=== PATIENT | male | born 1935 | race Caucasian/White ===

== ENCOUNTER 2016-08-22 19:47 | Inpatient (IN) | payer OTHER, MEDICARE ==
[~2016-08-22] VITALS: Ht 172.7 cm; Wt 72.6 kg
[~2016-08-22 19:47] MED LIST: ALLO100 PO; ASPI1TAB7 PO; BUME2TAB PO; CART120C2 PO; CARV12.5 PO; CENTTAB9 PO; CYAN25003 PO; FERR325T PO; FOLI1 PO; GLIP5TAB8 PO; GLUC1000 PO; HYDR-3533 PO; MAGN400 PO; PANT40IN3 PO; POLY17S PO; POTA1TAB17 PO; PRAV40 PO; SERT-132 PO; TAMS0.4C4 PO; VITA100017 PO; VITA500015 PO
[2016-08-22 20:00] VITALS: BP 100/63; PULSE 132; RESP 25; TEMP 97.5; O2SAT 100
[2016-08-22] MEDS ORDERED: SODIUM CHLORID 0.9% 500 ML INJ 500 ML IV ONE ×2 (20:30→22:00)
--- NOTE | 2016-08-22 20:34 | PD ---
HPI Chief Complaint: General Weakness Time Seen by Provider: 20:18 Travel History International Travel<30 days: No Contact w/Intl Traveler<30days: No Traveled to known affect area: No History of Present Illness HPI The patient is an 81 year old male who presents to the [facility] emergency department with a history of generalized weakness that he reports began today got worse this afternoon. He reports that his legs gave out on him. He reports that there is no focal weakness. He reports that he has had nausea and vomiting with loose stools throughout the day today. He reports that he has not been able to keep anything to eat or drink down. The patient denies having any chest pain, however he does report having some dyspnea on exertion. The patient is unsure how many times he has had vomiting today. He reports that he is had 2 or 3 loose stools that are brown in color. He denies having any blood in his stool or black or tarry stools The patient denies any recent known fevers cough, congestion, neck pain, abdominal pain, urinary symptoms, or other neurologic symptoms. [facility] Past Medical History Narrative Medical The patient's past medical history is significant for coronary artery disease, hypertension, diabetes mellitus, peripheral vascular disease, dyslipidemia, COPD , history of cerebrovascular accident. Atrial Fibrillation: Yes Cardiac Catheterization: Yes Cardiovascular Problems: Yes COPD: Yes Coronary Artery Disease: Yes Diabetes: Yes Patient Takes Glucophage: Yes Hypertension: Yes Respiratory: Yes Tetanus Vaccination: Unknown Influenza Vaccination: Yes Past Surgical History Narrative Surgical The patient's past surgical history is significant for coronary artery bypass grafting, pacemaker placement, cardiac stent placement. Cardiac Surgery: Yes (AORTIC VALVE REPLACEMENT (BOVINE TISSUE VALVE), PACEMAKER INSERTION ) Coronary Artery Bypass Graft: Yes Coronary Stent: Yes (CORDIS STENT) Genitourinary Surgery: Yes (BLOCKAGE REPAIR ) Pacemaker: Yes ([employer] 2009 ) Other Surgery: Yes Social History Alcohol Use: No Tobacco Use: No Substance Use: No Allergies-Medications (Allergen,Severity, Reaction): Coded Allergies: Heparin (Verified Allergy, Severe, 08/22/16) Reported Meds & Prescriptions Reported Meds & Active Scripts Active Active Prescriptions or Reported Medications Unobtainable Review of Systems Except as stated in HPI: all other systems reviewed are Neg General / Constitutional: No: Fever Eyes: No: Visual changes HENT: No: Headaches Cardiovascular: Positive: Dyspnea on exertion, No: Chest Pain or Discomfort Respiratory: Positive: Shortness of Breath Gastrointestinal: Positive: Nausea, Vomiting, Diarrhea, Loss of Appetite, No: Abdominal Pain Genitourinary: No: Dysuria Musculoskeletal: No: Pain Skin: No Rash Neurologic: Positive: Weakness (generalized weakness), No: Focal Abnormalities , Change in Mentation, Slurred Speech, Sensory Disturbance Psychiatric: No: Depression Endocrine: No: Polydipsia Hematologic/Lymphatic: No: Easy Bruising Physical Exam Narrative General: The patient is a well-developed well-nourished male in no acute distress. Head and Neck exam: Head is normocephalic atraumatic. Eyes: EOMI, pupils are equal round and reactive to light. Nose: Midline septum with pink mucous membranes Mouth: Dentition unremarkable. Moist mucus membranes. Posterior oropharynx is not erythematous. No tonsillar hypertrophy. Uvula midline. Airway patent. Neck: No palpable lymphadenopathy. No nuchal rigidity. No thyromegaly. Cardiovascular: Regular rate and rhythm without murmurs, gallops, or rubs. Lungs: Clear to auscultation bilaterally. No wheezes, rhonchi, or rales. Abdomen: Soft, without tenderness to palpation in all 4 quadrants of the abdomen. No guarding, rebound, or rigidity. Normal bowel sounds are audible. No tenderness on palpation of McBurney's point Extremities: No clubbing or cyanosis. The patient has trace to 1+ pitting edema bilateral lower extremities. 2+ pulses in all 4 extremities. No calf tenderness on palpation. Back: No spinous process tenderness to palpation. No costovertebral angle tenderness to palpation. Neurologic Exam: Cranial nerves 2-12 were intact on exam. Strength is 5/5 in bilateral upper extremities, 4 over 5 in bilateral lower extremities. No sensory deficits noted. Skin Exam: No rash noted. Intact skin that is warm and dry. Data Data Last Documented VS Vital Signs Date Time Temp Pulse Resp B/P Pulse Ox O2 Delivery O2 Flow Rate FiO2 08/22/16 20:50 16 100 Room Air 08/22/16 20:00 97.5 132 100/63 Orders Electrocardiogram (08/22/16 20:19) Complete Blood Count With Diff (08/22/16 20:19) Comprehensive Metabolic Panel (08/22/16 20:19) Creatine Kinase (Cpk) (08/22/16 20:19) Ckmb (Isoenzyme) Profile (08/22/16 20:19) Troponin I (08/22/16 20:19) B-Type Natriuretic Peptide (08/22/16 20:19) Prothrombin Time / Inr (Pt) (08/22/16 20:19) Act Partial Throm Time (Ptt) (08/22/16 20:19) Lipase (08/22/16 20:19) Urinalysis - C+S If Indicated (08/22/16 20:19) Magnesium (Mg) (08/22/16 20:19) Thyroid Stimulating Hormone (08/22/16 20:19) Chest, Single Ap (08/22/16 20:19) Iv Access Insert/Monitor (08/22/16 20:19) Ecg Monitoring (08/22/16 20:19) Oxygen Administration (08/22/16 20:19) Oximetry (08/22/16 20:19) Type And Screen (08/22/16 20:19) Sodium Chlorid 0.9% 500 Ml Inj (Ns 500 M (08/22/16 20:30) Urinary Catheter Insert/Apply (08/22/16 22:00) Sodium Polysty Sulfate Liq (Kayexalate L (08/22/16 22:00) Sodium Chlorid 0.9% 500 Ml Inj (Ns 500 M (08/22/16 22:00) Sodium Chlor 0.9% 1000 Ml Inj (Ns 1000 M (08/22/16 22:00) Dextrose 50% In Mann (Vial) Inj (D50w (Vi (08/22/16 22:00) Insulin Human Regular Inj (Novolin R Inj (08/22/16 22:00) Sodium Chloride 0.9% Flush (Ns Flush) (08/22/16 22:00) Albuterol Neb (Albuterol Neb) (08/22/16 22:00) Calcium Gluconate Inj (Calcium Gluconate (08/22/16 22:00) Sodium Bicarbonate 8.4% Inj (Sodium Bica (08/22/16 22:00) Admit Order (Ed Use Only) (08/22/16 22:36) Labs Laboratory Tests Test 08/22/16 20:00 White Blood Count 10.7 TH/MM3 Red Blood Count 3.48 MIL/MM3 Hemoglobin 10.2 GM/DL Hematocrit 31.7 % Mean Corpuscular Volume 91.1 FL Mean Corpuscular Hemoglobin 29.4 PG Mean Corpuscular Hemoglobin 32.3 % Concent Red Cell Distribution Width 21.2 % Platelet Count 201 TH/MM3 Mean Platelet Volume 8.8 FL Neutrophils (%) (Auto) 87.9 % Lymphocytes (%) (Auto) 8.9 % Monocytes (%) (Auto) 2.6 % Eosinophils (%) (Auto) 0.1 % Basophils (%) (Auto) 0.5 % Neutrophils # (Auto) 9.5 TH/MM3 Lymphocytes # (Auto) 1.0 TH/MM3 Monocytes # (Auto) 0.3 TH/MM3 Eosinophils # (Auto) 0.0 TH/MM3 Basophils # (Auto) 0.1 TH/MM3 CBC Comment DIFF FINAL Differential Comment Prothrombin Time 11.9 SEC Prothromb Time International 1.1 RATIO Ratio Activated Partial 27.6 SEC Thromboplast Time Sodium Level 132 MEQ/L Potassium Level 8.2 MEQ/L Chloride Level 92 MEQ/L Carbon Dioxide Level 17.0 MEQ/L Anion Gap 23 MEQ/L Blood Urea Nitrogen 67 MG/DL Creatinine 5.06 MG/DL Estimat Glomerular Filtration 11 ML/MIN Rate Random Glucose 108 MG/DL Calcium Level 9.6 MG/DL Magnesium Level 4.0 MG/DL Total Bilirubin 0.5 MG/DL Aspartate Amino Transf 16 U/L (AST/SGOT) Alanine Aminotransferase 16 U/L (ALT/SGPT) Alkaline Phosphatase 125 U/L Total Creatine Kinase 34 U/L Troponin I 0.03 NG/ML B-Type Natriuretic Peptide 678 PG/ML Total Protein 7.4 GM/DL Albumin 3.3 GM/DL Lipase 88 U/L Thyroid Stimulating Hormone 1.530 uIU/ML 3rd Gen Blood Type O POSITIVE Antibody Screen NEGATIVE Blood Bank Comment MDM Medical Decision Making Medical Screen Exam Complete: Yes Emergency Medical Condition: Yes Medical Record Reviewed: Yes Interpretation(s) Last Impressions Chest X-Ray 08/22/162018 Signed Impressions: Service Date/Time: Monday, August 22, 2016 20:31 - CONCLUSION: 1. Global cardiomegaly with probable early edematous changes with vascular indistinctness. Trace pleural fluid. Carlos A Spicer MD Differential Diagnosis Dehydration, versus electrolyte abnormality Narrative Course During the course of the patients emergency department visit, the patients history, examination, and differential diagnosis were reviewed with the patient. The patient had IV access obtained and blood work sent for analysis. The patient was placed on a residential monitor with oximetry and blood pressure monitoring. An EKG was done. The patient's EKG revealed a heart rate of 60, paced rhythm. The patient was initially provided normal saline a 500 mL bolus 1. After the patient was noted to have hyperkalemia with a potassium of 8.2, the patient was given calcium gluconate 1 g IV, albuterol nebulizer treatments 2, one amp of bicarbonate, Kayexalate 15 g by mouth. Dextrose IV, followed by regular insulin 10 units IV. The patients laboratory studies were reviewed and remarkable for a sodium of 132, potassium 8.2, chloride 92, CO2 17, anion gap 23, BUN 67, creatinine 5.06, glucose 108, magnesium 4.0, alkaline phosphatase 125, CPK 34, troponin I 0.03, BNP is 678, TSH 1.53, lipase 88. PT PTT unremarkable. Urinalysis shows 30 protein trace ketones small occult blood 5 RBCs occasional bacteria Radiology studies were reviewed and remarkable for a chest x-ray that shows a global cardiomegaly with probable early edematous changes with vascular indistinctness, trace pleural fluid. The patient had a Hutton catheter placed to gravity. The patient was placed on additional IV fluids for gentle hydration. The patient will be admitted to the hospital for continued evaluation and treatment of acute renal failure, hyperkalemia. The patients results were discussed with the patient, including the plan of care. I explained that further testing and/ or monitoring is indicated based on the patients history, examination, and/ or laboratory findings. Therefore, I recommended admission for additional evaluation. The patient expressed understanding and was agreeable with this plan. The patient was admitted to the hospital in guarded condition and [facility] Physician Communication Physician Communication The patient's case was discussed with Dr. Soares who did agree to admit the patient for further evaluation and treatment at this time. Diagnosis Primary Impression: Acute renal failure Qualified Code: N17.9 - Acute renal failure, unspecified acute renal failure type Additional Impressions: Hyperkalemia Generalized weakness Admitting Information Admitting Physician Requests: Admit Scripts Unable to Obtain Active Prescriptions or Reported Meds Jailene Posey MD Aug 22, 2016 20:34
[2016-08-22 20:50] VITALS: RESP 16; O2SAT 100
[2016-08-22 21:02] LABS: AUTOMATED NEUTROPHIL # 9.5 TH/MM3 (1.8-7.7); BASOPHIL # 0.1 TH/MM3 (0-0.2); BASOPHIL % 0.5 % (0.0-2.0); EOSINOPHIL % 0.1 % (0.0-4.0); HEMATOCRIT 31.7 % (39.0-51.0); HEMO FLAGS DIFF FINAL; LYMPH % 8.9 % (9.0-44.0); MEAN CELL VOLUME 91.1 FL (80.0-100.0); MEAN CORPUSCULAR HEMOGLOBIN 29.4 PG (27.0-34.0); MEAN CORPUSCULAR HGB CONC 32.3 % (32.0-36.0); MONO % 2.6 % (0.0-8.0); NEUT % 87.9 % (16.0-70.0); PLATELET COUNT 201 TH/MM3 (150-450); RED BLOOD COUNT 3.48 MIL/MM3 (4.50-5.90); RED CELL DISTRIBUTION WIDTH 21.2 % (11.6-17.2); WHITE BLOOD COUNT 10.7 TH/MM3 (4.0-11.0)
--- NOTE | 2016-08-22 21:09 | RADRPT ---
EXAM DATE/TIME: 08/22/2016 20:31 [facility] COMPARISON: CHEST SINGLE AP, April 08, 2016, 0:40. INDICATIONS : Short of breath. MEDICAL HISTORY : Cardiovascular disease. Hypertension. Diabetes SURGICAL HISTORY : Pacemaker. CABG. ENCOUNTER: Initial ACUITY: 1 day PAIN SCORE: 0/10 LOCATION: Bilateral chest FINDINGS: Global cardiomegaly present. Postop CABG and aortic valve replacement. Indistinctness of the vasculat ure is most characteristic of mild edema. Trace pleural fluid. No pneumothorax. CONCLUSION: 1. Global cardiomegaly with probable early edematous changes with vascular indistinctness. Trace pleu ral fluid. Carlos A Spicer MD on August 22, 2016 at 21:07 Board Certified Radiologist. This report was verified electronically.
[2016-08-22 21:13] LABS: APTT (PATIENT) 27.6 SEC (24.3-30.1); INTERNATIONAL NORMALIZED RATIO 1.1 RATIO; PROTHROMBIN TIME - PATIENT 11.9 SEC (9.8-11.6)
[2016-08-22 21:51] LABS: ALKALINE PHOSPHATASE 125 U/L (45-117); ALT (GPT) 16 U/L (12-78); ANION GAP 23 MEQ/L (5-15); AST (GOT) 16 U/L (15-37); BLOOD UREA NITROGEN 67 MG/DL (7-18); CHLORIDE 92 MEQ/L (98-107); GLOMERULAR FILTRATION RATE 11 ML/MIN (>89); SODIUM (NA) 132 MEQ/L (136-145); TOTAL BILIRUBIN ADULT 0.5 MG/DL (0.2-1.0)
[2016-08-22 21:55] LABS: CREATINE KINASE 34 U/L (39-308)
[2016-08-22 21:56] LABS: POTASSIUM 8.2 MEQ/L (3.5-5.1)
[2016-08-22] MEDS ORDERED: DEXTROSE 50% IN WATER 50 ML VIAL(D50) IV PUSH ONE (22:00)
[2016-08-22] MEDS ORDERED: SODIUM CHLORIDE 0.9% FLUSH 5 ML FLUSH IVF PRN (22:00)
[2016-08-22] MEDS ORDERED: SODIUM POLYSTYRENE SULFONATE SUSP 15 GM/60 ML CUP PO ONE (22:00)
[2016-08-22] MEDS ORDERED: SODIUM BICARBONATE 8.4% INJ 50 MEQ/50 ML SYR IV PUSH ONE (22:00)
[2016-08-22] MEDS ORDERED: INSULIN HUMAN REGULAR 1,000 UNITS/10 ML VIAL IV PUSH ONE (22:00)
[2016-08-22] MEDS ORDERED: SODIUM CHLOR 0.9% 1000 ML INJ 1,000 ML IV SCH (22:00)
[2016-08-22] MEDS ORDERED: CALCIUM GLUCONATE INJ 1 GM in DEXTROSE 5% IN WATER 100ML INJ 100 ML IV ONE ×2 (22:00)
[2016-08-22] MEDS: RESP: ALBUTEROL 2.5 MG/3 ML NEB (SCH) INH ×2 (22:12→22:13)
[2016-08-22 22:41] VITALS: BP 106/52; PULSE 89; RESP 16; O2SAT 98
[2016-08-22] MEDS ORDERED: NALOXONE HCL 0.4 MG/ML AMP IV PRN (22:45)
[2016-08-22] MEDS ORDERED: SODIUM CHLORIDE 0.9% FLUSH 5 ML FLUSH FLUSH PRN (22:45)
[2016-08-22 23:21] LABS: BACTERIA, URINE OCC /hpf; BLOOD, URINE SMALL (NEG); COMMENT (UR) CULT NOT INDICATED; CULTURE IF INDICATED CULT NOT INDICATED; GLUCOSE,URINE NEG (NEG); KETONE, URINE TRACE mg/dL (NEG); MUCUS URINE FEW /lpf (OCC); NITRITE,URINE NEG (NEG); PH, URINE 5.5 (5.0-8.5); URINE COLOR YELLOW (YELLW/STRAW)
[2016-08-22 23:26] LABS: BICARBONATE 20.5 MEQ/L (21.0-32.0)
[2016-08-22 23:27] LABS: POTASSIUM 7.9 MEQ/L (3.5-5.1)
[2016-08-23] VITALS (21 sets, daily range): BP systolic 111–143; BP diastolic 53–83; PULSE 58–66; RESP 16–36; TEMP 98–98.3; O2SAT 95–100
[2016-08-23] MEDS ORDERED: INSULIN HUMAN REGULAR 1,000 UNITS/10 ML VIAL IVP ONE ×3 (01:45→05:15)
[2016-08-23] MEDS ORDERED: CALCIUM GLUCONATE 10% 1 GM/10 ML VIAL IV PUSH ONE ×3 (01:45→05:15)
[2016-08-23] MEDS ORDERED: SODIUM BICARBONATE 8.4% INJ 50 MEQ/50 ML SYR IV PUSH ONE (01:45)
[2016-08-23] MEDS ORDERED: DEXTROSE 50% IN WATER 50 ML VIAL(D50) IV PUSH ONE ×3 (01:45→05:15)
[2016-08-23] MEDS ORDERED: CALCIUM GLUCONATE INJ 1 GM in DEXTROSE 5% IN WATER 100ML INJ 100 ML IV ONE ×2 (02:00)
[2016-08-23] MEDS: SODIUM POLYSTYRENE SULFONATE SUSP 15 GM/60 ML CUP PO SCH ×18 (02:01→18:00)
[2016-08-23 02:30] LABS: BICARBONATE 21.8 MEQ/L (21.0-32.0)
--- NOTE | 2016-08-23 02:31 | HHI.HP ---
[facility] Non[facility]Staff Admission Diagnosis Renal failure, hyperkalemia, generalized weakness Diagnoses: Chief Complaint: Fell down Travel History International Travel<30 Days: No Contact w/Intl Traveler <30 Da: No Traveled to Known Affected Are: No History of Present Illness History and patient, ER physician to medication, and review of medical records. Patient reported that today as he was walking at home, he suddenly fell backwards. He stated he was with his family members who is supporting him and therefore he did not hit his head. Denies loss of consciousness. He did however report that he was very dizzy prior to his fall. Reports that he has been having nausea and vomiting all day long and vomited whatever he ate. Denies any black color stools or red-colored stools. Denies any blood in his vomitus. Denies fever. Reports of some abdominal pain associated with this vomiting episodes. No sick contacts. Patient denies any prior history of kidney disease. In the emergency room, patient was found to have acute renal failure with life- threatening hyperkalemia. He was treated with cocktail regimen of insulin/dextrose/Kayexalate/calcium gluconate for his hyperkalemia. There are no noted cardiac arrhythmia on telemetry monitoring or on EKGs. Review of Systems Other 12 point review of system is done and negative apart from what is mentioned in HPI Past Family Social History Past Medical History Hypertension Diabetes CADstatus post CABG Hyperlipidemia Cardiac murmurvalvular heart diseasestatus post aortic valve replacement bovine Atrial fibrillation Sick sinus syndromestatus post pacemaker placement PADstatus post right lower extremity stenting COPDhome nocturnal oxygen Reports of history of left upper extremity DVT TIAs Past Surgical History CABG Right lower extremity stenting Pacemaker placement Aortic valve replacement Reported Medications Patient's medications listed in EMRreviewed. Stated his did bring a list. Allergies: Coded Allergies: Heparin (Verified Allergy, Severe, 08/22/16) Family History Reports his sister of breast cancer. Brother of MVA. Social History Used to smoke cigarettes, quit more than 10 years ago. denies any alcohol abuse or drug abuse. Reports he is no longer driving. Lives with his . He states his is his caregiver. Physical Exam Vital Signs Vital Signs Date Time Temp Pulse Resp B/P Pulse Ox O2 Delivery O2 Flow Rate FiO2 08/22/16 22:41 89 16 106/52 98 Room Air 08/22/16 20:50 16 100 Room Air 08/22/16 20:50 100 Room Air 08/22/16 20:00 97.5 132 25 100/63 100 Physical Exam GENERAL: This is a well-nourished, well-developed patient, in no apparent distress. SKIN: No rashes, ecchymoses or lesions. Cool and dry. HEAD: Atraumatic. Normocephalic. No temporal or scalp tenderness. EYES: No scleral icterus. No injection or drainage. ENT: Nose without bleeding, purulent drainage or septal hematoma. Airway patent. NECK: Trachea midline. No JVDSupple, nontender, no meningeal signs. CARDIOVASCULAR: Regular rate and rhythm without gallops, or rubs. RESPIRATORY: Clear to auscultation. Breath sounds equal bilaterally. No wheezes , rales, or rhonchi. GASTROINTESTINAL: Abdomen soft, non-tender, nondistended. No guarding. MUSCULOSKELETAL: Extremities without clubbing, cyanosis, or edema. No calf tenderness. NEUROLOGICAL: Awake and alert. Motor and sensory grossly within normal limits. Normal speech. Laboratory Laboratory Tests Test 08/22/16 08/22/16 08/22/16 20:00 22:50 23:00 White Blood Count 10.7 Red Blood Count 3.48 Hemoglobin 10.2 Hematocrit 31.7 Mean Corpuscular Volume 91.1 Mean Corpuscular Hemoglobin 29.4 Mean Corpuscular Hemoglobin 32.3 Concent Red Cell Distribution Width 21.2 Platelet Count 201 Mean Platelet Volume 8.8 Neutrophils (%) (Auto) 87.9 Lymphocytes (%) (Auto) 8.9 Monocytes (%) (Auto) 2.6 Eosinophils (%) (Auto) 0.1 Basophils (%) (Auto) 0.5 Neutrophils # (Auto) 9.5 Lymphocytes # (Auto) 1.0 Monocytes # (Auto) 0.3 Eosinophils # (Auto) 0.0 Basophils # (Auto) 0.1 CBC Comment DIFF FINAL Differential Comment Prothrombin Time 11.9 Prothromb Time International 1.1 Ratio Activated Partial 27.6 Thromboplast Time Sodium Level 132 133 Potassium Level 8.2 7.9 Chloride Level 92 94 Carbon Dioxide Level 17.0 20.5 Anion Gap 23 19 Blood Urea Nitrogen 67 71 Creatinine 5.06 4.88 Estimat Glomerular Filtration 11 11 Rate Random Glucose 108 180 Calcium Level 9.6 9.6 Magnesium Level 4.0 Total Bilirubin 0.5 Aspartate Amino Transf 16 (AST/SGOT) Alanine Aminotransferase 16 (ALT/SGPT) Alkaline Phosphatase 125 Total Creatine Kinase 34 Troponin I 0.03 B-Type Natriuretic Peptide 678 Total Protein 7.4 Albumin 3.3 Lipase 88 Thyroid Stimulating Hormone 1.530 3rd Gen Blood Type O POSITIVE Antibody Screen NEGATIVE Blood Bank Comment Urine Color YELLOW Urine Turbidity CLEAR Urine pH 5.[address] [place] 1.012 Urine Protein 30 Urine Glucose (UA) NEG Urine Ketones TRACE Urine Occult Blood SMALL Urine Nitrite NEG Urine Bilirubin NEG Urine Urobilinogen LESS THAN 2.0 Urine Leukocyte Esterase NEG Urine RBC 5 Urine WBC 1 Urine Bacteria OCC Urine Mucus FEW Microscopic Urinalysis Comment CULT NOT INDICATED Result Diagram: 08/22/16199908/22/16 2300 Imaging Last 48 hours Impressions Chest X-Ray 08/22/162018 Signed Impressions: Service Date/Time: Monday, August 22, 2016 20:31 - CONCLUSION: 1. Global cardiomegaly with probable early edematous changes with vascular indistinctness. Trace pleural fluid. Carlos A Spicer MD Assessment and Plan Problem List: (1) Hyperkalemia ICD Code: E87.5 Status: Acute (2) Acute renal failure ICD Code: N17.9 Status: Acute (3) Generalized weakness ICD Code: R53.1 Status: Acute Assessment and Plan Impression: Life-threatening hyperkalemia Acute renal failure Dehydration Elevated BNPin setting of history of CHF, with chest x-ray showing mild pulmonary congestion Plan: Kayexalate 30 g by mouth every hour until diarrhea. BMP every 4 hours. We'll treat with cocktail of insulin/dextrose/calcium gluconate/sodium bicarbonate/Kayexalate based on lab work. Patient was given IV fluids in ER initially. No significant improvement. We'll continue IV fluids at 84 cc per hour. Throughout the night, patient's blood work was repeated and monitored closely. Although potassium did come down, it wasn't much improvement. No evidence of cardiac arrhythmias on EKG or telemetry monitoring. We'll consult nephrology since patient likely will not improve his electrolytes abnormalities. Would likely need dialysis. CPK is normal. No NSAIDs use. No recent contrast studies as per patient. Admit patient to ICU for close monitoring. DVT prophylaxisto start on heparin post procedures. Addendum: 6:20 AM August 23, 2016 Since patient's hyperkalemia did not improve much with treatment overnight, discussed the case with changeover operator [employer]angelands conservation laborer. Patient will likely need dialysis today a.m. Therefore advised to have a Vas-Cath placed by cement rubber. Discussed with cement rubber today a.m. Will try to place Vas-Cath if possible in a.m. However also advised to have interventional radiology consult just in case cement rubber cannot get to the procedure in time. Discussed Condition With Patient, ER physician, ER nurse Physician Certification 2 Midnight Certification Type: Admission for Inpatient Services Order for Inpatient Services The services are ordered in accordance with Medicare regulations or non- Medicare payer requirements, as applicable. In the case of services not specified as inpatient-only, they are appropriately provided as inpatient services in accordance with the 2-midnight benchmark. Estimated LOS (days): 3 days is the estimated time the patient will need to remain in the hospital, assuming treatment plan goals are met and no additional complications. Post-Hospital Plan: Home Problem Qualifiers (1) Acute renal failure: Qualified Code: N17.9 - Acute renal failure, unspecified acute renal failure type Anastacio Soares MD Aug 23, 2016 02:31
[2016-08-23 02:36] LABS: POTASSIUM 7.6 MEQ/L (3.5-5.1)
[2016-08-23] MEDS ORDERED: RESP: ALBUTEROL 0.63 MG/3 ML NEB (SCH) NEB ONE (03:30)
[2016-08-23] MEDS: SODIUM CHLOR 0.9% 1000 ML INJ 1,000 ML IV SCH ×2 (04:14→18:39)
[2016-08-23 04:29] LABS: AUTOMATED NEUTROPHIL # 13.5 TH/MM3 (1.8-7.7); BASOPHIL % 0.2 % (0.0-2.0); EOSINOPHIL % 0.1 % (0.0-4.0); HEMATOCRIT 29.8 % (39.0-51.0); HEMO FLAGS DIFF FINAL; LYMPH % 9.2 % (9.0-44.0); LYMPHOCYTE # 1.5 TH/MM3 (1.0-4.8); MEAN CELL VOLUME 88.4 FL (80.0-100.0); MEAN CORPUSCULAR HEMOGLOBIN 29.2 PG (27.0-34.0); MEAN CORPUSCULAR HGB CONC 33.1 % (32.0-36.0); MONO % 7.3 % (0.0-8.0); NEUT % 83.2 % (16.0-70.0); PLATELET COUNT 191 TH/MM3 (150-450); RED BLOOD COUNT 3.37 MIL/MM3 (4.50-5.90); RED CELL DISTRIBUTION WIDTH 20.7 % (11.6-17.2); WHITE BLOOD COUNT 16.2 TH/MM3 (4.0-11.0)
[2016-08-23 05:00] LABS: BICARBONATE 22.6 MEQ/L (21.0-32.0)
[2016-08-23 05:02] LABS: POTASSIUM 7.3 MEQ/L (3.5-5.1)
[2016-08-23] MEDS ORDERED: RESP: ALBUTEROL CONC 2.5 MG/0.5 ML NEB NEB ONE (05:15)
[2016-08-23] MEDS ORDERED: SODIUM CHLOR 0.9% 1000 ML INJ 1,000 ML IV PRN ×3 (06:46)
[2016-08-23] MEDS ORDERED: EPOETIN ALFA 4,000 UNITS/ML VIAL IV PRN (07:00)
[2016-08-23] MEDS ORDERED: cloNIDine HCL 0.1 MG TAB PO PRN (07:00)
[2016-08-23] MEDS ORDERED: ALBUMIN HUMAN 25% 25 GM/100 ML BAGP IV PRN (07:00)
[2016-08-23] MEDS ORDERED: SODIUM CHLORIDE 0.9% FLUSH 5 ML FLUSH IVF PRN ×2 (07:00→10:45)
[2016-08-23] MEDS ORDERED: diphenhydrAMINE HCL 25 MG CAP PO PRN (07:00)
[2016-08-23] MEDS ORDERED: MANNITOL 12.5 GM/50 ML VIAL IV PRN (07:00)
[2016-08-23] MEDS ORDERED: GELATIN 12 MM/7 MM FOAM TOP PRN (07:00)
[2016-08-23] MEDS ORDERED: HEPARIN SODIUM - IV 10,000 UNITS/10 ML VIAL IVF PRN ×2 (07:00→10:45)
[2016-08-23] MEDS ORDERED: NITROGLYCERIN 0.4 MG SL 25 TABS/BTL SL PRN (07:00)
[2016-08-23] MEDS ORDERED: ONDANSETRON HCL 4 MG/2 ML VIAL IV PRN (07:00)
[2016-08-23] MEDS ORDERED: HEPARIN SODIUM - IV 10,000 UNITS/10 ML VIAL PRN (07:00)
[2016-08-23] MEDS ORDERED: GENTAMICIN SULFATE (DIALYSIS USE ONLY) 20 MG/2 ML VIAL IV PRN (07:00)
[2016-08-23] MEDS ORDERED: ACETAMINOPHEN 325 MG TAB PO PRN (07:00)
--- NOTE | 2016-08-23 07:53 | PD.CONS ---
HPI Service Nephrology Consult Requested By Dr. Soares Reason for Consult Acute renal failure with hyperkalemia Primary Care Physician Non-Staff History of Present Illness 81-year-old male with history of atrial fibrillation, hypertension, renal insufficiency last creatinine 1.07 in March 2016 who presented with the fall, he was having nausea and vomiting and felt weak and tired the and also got dizzy and has a fall backwards, he presented with these complaints and he states the renal failure is not diagnosed in the past, initial EKG was abnormal paced rhythm with Tall T wave and wide QRS complex, it appears better after treatment on monitor. Review of Systems Constitutional: COMPLAINS OF: Fatigue, Dizziness Respiratory: COMPLAINS OF: Shortness of breath Gastrointestinal: COMPLAINS OF: Nausea, Vomiting Musculoskeletal: COMPLAINS OF: Joint pain Neurologic: COMPLAINS OF: Localized weakness, Poor Balance Psychiatric: COMPLAINS OF: Anxiety Past Family Social History Allergies: Coded Allergies: Heparin (Verified Allergy, Severe, 08/22/16) Past Medical History Hypertension Diabetes CADstatus post CABG Hyperlipidemia Cardiac murmurvalvular heart diseasestatus post aortic valve replacement bovine Atrial fibrillation Sick sinus syndromestatus post pacemaker placement PADstatus post right lower extremity stenting COPDhome nocturnal oxygen Reports of history of left upper extremity DVT TIAs Past Surgical History CABG Right lower extremity stenting Pacemaker placement Aortic valve replacement Reported Medications Reported Meds & Active Scripts Active Active Prescriptions or Reported Medications Unobtainable Active Ordered Medications Current Medications Medications (Trade) Dose Ordered Sig/Jaye Route Start Time Stop Time Status Last Admin (NS Flush) 2 ml UNSCH PRN FLUSH 08/22/16 22:45 08/23/16 04:15 (NS Flush) 2 ml BID FLUSH 08/23/16 09:00 Naloxone HCl 0.4 mg 0.4 mg UNSCH PRN IV 08/22/16 22:45 (NS 1000 ml Inj) 1,000 ml @ 84 mls/hr [id number] IV 08/23/16 03:30 08/23/16 04:14 Sodium Polystyrene Sulfonate 30 gm 30 gm Q1HR PO 08/23/16 06:00 08/23/16 07:00 (NS 1000 ml Inj) 1,000 ml @ 0 mls/hr Q0M PRN IV 08/23/16 06:46 Heparin Sodium (Porcine) 8000 units 8,000 units UNSCH PRN IVF 08/23/16 07:00 UNV Sodium Chloride 1,000 ml @ 200 mls/hr Q5H PRN IV 08/23/16 06:46 (NS 1000 ml Inj) 1,000 ml @ 0 mls/hr Q0M PRN IV 08/23/16 06:46 (Mannitol Inj) 12.5 gm UNSCH PRN IV 08/23/16 07:00 (Albumin 25% Inj) 25 gm UNSCH PRN IV 08/23/16 07:00 (NS Flush) 5 ml UNSCH PRN IVF 08/23/16 07:00 (Heparin Inj) UNSCH PRN .XX 08/23/16 07:00 UNV (Gentamicin (Dialysis) Inj) 20 mg UNSCH PRN IV 08/23/16 07:00 (Zofran Inj) 4 mg UNSCH PRN IV 08/23/16 07:00 (Tylenol) 650 mg UNSCH PRN PO 08/23/16 07:00 (Benadryl) 25 mg UNSCH PRN PO 08/23/16 07:00 (Nitrostat Sl) 0.4 mg UNSCH PRN SL 08/23/16 07:00 (Catapres) 0.1 mg UNSCH PRN PO 08/23/16 07:00 (Epogen Inj) 4,000 units UNSCH PRN IV 08/23/16 07:00 (Gelfoam 12 Mm/7 Mm Top) 1 foam UNSCH PRN TOP 08/23/16 07:00 Family History Noncontributory Social History He was a smoker of one pack per day and quit 10 years ago Denies current smoking or alcohol Physical Exam Vital Signs Vital Signs Date Time Temp Pulse Resp B/P Pulse Ox O2 Delivery O2 Flow Rate FiO2 08/23/16 07:20 35 97 Nasal Cannula 2 08/23/16 07:16 98.1 08/23/16 07:11 61 26 95 08/23/16 06:41 58 16 129/60 97 Nasal Cannula 2 08/23/16 04:31 63 16 125/59 98 Room Air 08/23/16 03:34 96 08/22/16 22:41 89 16 106/52 98 Room Air 08/22/16 20:50 16 100 Room Air 08/22/16 20:50 100 Room Air 08/22/16 20:00 97.5 132 25 100/63 100 Physical Exam GENERAL: Well-nourished, well-developed patient. SKIN: Warm and dry. HEAD: Normocephalic. EYES: No scleral icterus. No injection or drainage. NECK: Supple, trachea midline. No JVD or lymphadenopathy. CARDIOVASCULAR: Irregularly irregular RESPIRATORY: Breath sounds diminished at bases GASTROINTESTINAL: Abdomen soft, non-tender, nondistended. EXTREMITIES: No cyanosis, or edema. NEUROLOGICAL: Awake, alert, and oriented x 3. Non-focal. Laboratory Laboratory Tests Test 08/22/16 08/22/16 08/22/16 08/23/16 20:00 22:50 23:00 02:00 White Blood Count 10.7 Red Blood Count 3.48 Hemoglobin 10.2 Hematocrit 31.7 Mean Corpuscular Volume 91.1 Mean Corpuscular Hemoglobin 29.4 Mean Corpuscular Hemoglobin 32.3 Concent Red Cell Distribution Width 21.2 Platelet Count 201 Mean Platelet Volume 8.8 Neutrophils (%) (Auto) 87.9 Lymphocytes (%) (Auto) 8.9 Monocytes (%) (Auto) 2.6 Eosinophils (%) (Auto) 0.1 Basophils (%) (Auto) 0.5 Neutrophils # (Auto) 9.5 Lymphocytes # (Auto) 1.0 Monocytes # (Auto) 0.3 Eosinophils # (Auto) 0.0 Basophils # (Auto) 0.1 CBC Comment DIFF FINAL Differential Comment Prothrombin Time 11.9 Prothromb Time International 1.1 Ratio Activated Partial 27.6 Thromboplast Time Sodium Level 132 133 133 Potassium Level 8.2 7.9 7.6 Chloride Level 92 94 94 Carbon Dioxide Level 17.0 20.5 21.8 Anion Gap 23 19 17 Blood Urea Nitrogen 67 71 73 Creatinine 5.06 4.88 4.87 Estimat Glomerular Filtration 11 11 12 Rate Random Glucose 108 180 198 Calcium Level 9.6 9.6 9.4 Magnesium Level 4.0 Total Bilirubin 0.5 Aspartate Amino Transf 16 (AST/SGOT) Alanine Aminotransferase 16 (ALT/SGPT) Alkaline Phosphatase 125 Total Creatine Kinase 34 Troponin I 0.03 B-Type Natriuretic Peptide 678 Total Protein 7.4 Albumin 3.3 Lipase 88 Thyroid Stimulating Hormone 1.530 3rd Gen Blood Type O POSITIVE Antibody Screen NEGATIVE Blood Bank Comment Urine Color YELLOW Urine Turbidity CLEAR Urine pH 5.5 Urine Specific [place] 1.012 Urine Protein 30 Urine Glucose (UA) NEG Urine Ketones TRACE Urine Occult Blood SMALL Urine Nitrite NEG Urine Bilirubin NEG Urine Urobilinogen LESS THAN 2.0 Urine Leukocyte Esterase NEG Urine RBC 5 Urine WBC 1 Urine Bacteria OCC Urine Mucus FEW Microscopic Urinalysis Comment CULT NOT INDICATED Test 08/23/16 04:10 White Blood Count 16.2 Red Blood Count 3.37 Hemoglobin 9.9 Hematocrit 29.8 Mean Corpuscular Volume 88.4 Mean Corpuscular Hemoglobin 29.2 Mean Corpuscular Hemoglobin 33.1 Concent Red Cell Distribution Width 20.7 Platelet Count 191 Mean Platelet Volume 7.9 Neutrophils (%) (Auto) 83.2 Lymphocytes (%) (Auto) 9.2 Monocytes (%) (Auto) 7.3 Eosinophils (%) (Auto) 0.1 Basophils (%) (Auto) 0.2 Neutrophils # (Auto) 13.5 Lymphocytes # (Auto) 1.5 Monocytes # (Auto) 1.2 Eosinophils # (Auto) 0.0 Basophils # (Auto) 0.0 CBC Comment DIFF FINAL Differential Comment Sodium Level 134 Potassium Level 7.3 Chloride Level 94 Carbon Dioxide Level 22.6 Anion Gap 17 Blood Urea Nitrogen 73 Creatinine 5.12 Estimat Glomerular Filtration 11 Rate Random Glucose 84 Calcium Level 10.9 Result Diagram: 08/23/1640908/23/16409 Imaging Last Impressions Chest X-Ray 08/22/16 2019 Signed Impressions: Service Date/Time: Monday, August 22, 2016 20:31 - CONCLUSION: 1. Global cardiomegaly with probable early edematous changes with vascular indistinctness. Trace pleural fluid. Carlos A Spicer MD Assessment and Plan Problem List: (1) Acute renal failure Plan: Patient needs urgent dialysis as her potassium has been treated though it is still 7.3 after initial 8.2, patient received D50 insulin, albuterol, Kayexalate and sodium bicarbonate without much success, Hutton catheter has been inserted and he is having hematuria as I will get kidney ultrasound, HAYDER and protein electrophoresis, C3-C4, and ANCA Ordered. He has non specific Heparin allergy will hold Heparin flushes. 250 pm seen at end of dialysis 1 L Off 1k bath follow BMP (2) Hyperkalemia Plan: Plan to do hemodialysis for persistent hyperkalemia (3) DM2 (diabetes mellitus, type 2) Plan: Continue to monitor (4) HTN (hypertension) Plan: Follow blood pressure (5) CAD (coronary artery disease) Plan: We'll monitor (6) COPD (chronic obstructive pulmonary disease) Plan: He has shortness of breath Problem Qualifiers (1) Acute renal failure: Qualified Code: N17.9 - Acute renal failure, unspecified acute renal failure type Juan Alberto Perkins MD Aug 23, 2016 07:53
[2016-08-23 09:01] LABS: BICARBONATE 22.7 MEQ/L (21.0-32.0); POTASSIUM 5.6 MEQ/L (3.5-5.1)
[2016-08-23] MEDS: SODIUM CHLORIDE 0.9% FLUSH 5 ML FLUSH FLUSH SCH ×2 (09:19→21:37)
--- NOTE | 2016-08-23 09:42 | RADRPT ---
EXAM DATE/TIME: 08/23/2016 08:05 [facility] COMPARISON: No previous studies available for comparison. INDICATIONS : Hyperkalemia, decreased urine output. MEDICAL HISTORY : Hypertension. Coronary artery disease. Atrial fibrillation. Diabetes. SURGICAL HISTORY : Pacemaker. CABG. Aortic valve replacement. Coronary valve replacement. ENCOUNTER: Initial ACUITY: 1 day PAIN SCORE: 0/10 LOCATION: Bilateral flank MEASUREMENTS: RIGHT KIDNEY: 10.2 x 7.1 x 6.6 cm LEFT KIDNEY: 13.9 x 6.4 x 6.9 cm FINDINGS: Ultrasound of the kidneys was performed. In the mid pole of the right kidney, there are some echogen ic areas within the cortex. I suspect these are small cortical calcification. There is no evidence of hydronephrosis. No dominant or solid mass is identified. The left kidney has a more normal appearance. No hydronephrosis is seen. No solid mass is seen. Hutton catheter decompressed bladder. CONCLUSION: I suspect there are two small cortical calcification within the right kidney. No evidence of hydrone phrosis or obstruction. Aries Castro MD on August 23, 2016 at 9:07 Board Certified Radiologist. This report was verified electronically.
--- NOTE | 2016-08-23 10:38 | PD.RAD ---
Post Procedure Progress Note Pre Procedure Diagnosis: (1) Acute renal failure Post Procedure Diagnosis: (1) Acute renal failure Procedure Date: Aug 23, 2016 Supervising Radiologist: Nick Perez Proceduralist/Assist: RT Clay(R), RT Patience(R)() Anesthesia: Local Plan of Activity Patient to Unit: Nursing Unit Patient Condition: Good See PACS Report for procedural detail/treatment Central Venous Access Device Procedure 1 Right Internal Jugular Hemodialysis Catheter Non-Tunneled Placement dual lumen Nick Perez MD Aug 23, 2016 10:38
--- NOTE | 2016-08-23 12:00 | RADRPT ---
EXAM DATE/TIME: 08/23/2016 09:59 [facility] COMPARISON: No previous studies available for comparison. INDICATIONS : Patient presents with renal failure in need of dialysis catheter placement. MEDICAL HISTORY : CAD AFIB COPD DIABETES HTN SURGICAL HISTORY : CABG Pace maker Cordis coronary stent Cardiac cath Aortic valve repair ENCOUNTER: Initial ACUITY: 2 days PAIN SCORE: 0/10 LOCATION: N/A FLUORO TIME: 0.083 minutes ACCESS: Right internal jugular vein DEVICE(S): 1.) 14 [place] dual lumen 15 cm Schon catheter PROCEDURE : 1. Ultrasound guided venipuncture. 2. Fluoroscopic guidance. 3. Central line placement. The risks, benefits and alternatives to the procedure were explained and verbal and written consent w as obtained. The site was prepped in sterile fashion. Full sterile technique was used, including ca p, mask, sterile gloves and gown and a large sterile sheet. Hand hygiene and 2% chlorhexidine prep w as utilized per protocol for cutaneous antisepsis with appropriate dry time for site. The skin and subcutaneous tissues were infiltrated with local anesthetic solution. A suitable site a shine the vein was selected with ultrasound and fluoroscopic guidance. A small incision was made. Th e vein was accessed under direct ultrasound visualization using the micropuncture technique. The juliana ropuncture set was exchanged for a 0.035 wire. The tract was dilated. The catheter was advanced int o position under direct fluoroscopic visualization. The catheter was fixed in place with suture and a sterile dressing was applied. The patient tolerated the procedure well and there were no complications. CONCLUSION: Uncomplicated line placement as above. Nick Perez MD on August 23, 2016 at 11:58 Board Certified Radiologist. This report was verified electronically.
[2016-08-23 12:26] LABS: TOTAL PROTEIN SPE 6.4 GM/DL (6.0-7.6)
--- NOTE | 2016-08-23 14:20 | EKG ---
Date Performed: 08/22/2016 Time Performed: 20:36:29 PTAGE: 81 years EKG: ELECTRONIC VENTRICULAR PACEMAKER ABNORMAL RHYTHM ECG Underlying rhythm is probably atrial f ibrillation. Compared to the PREVIOUS TRACING , there has been an increase in the paced ventricular rate and the QRS complex is wider. PREVIOUS TRACIN04/08/2016 00.07 DOCTOR: Elly Oakley Interpretating Date/Time 08/23/2016 14:18:58
[2016-08-23] MEDS ORDERED: MAGN400T2 PO (16:46)
[2016-08-23] MEDS ORDERED: PANT40TA3 PO (16:46)
[2016-08-23] MEDS ORDERED: CYAN5SUB PO (16:46)
[2016-08-23] MEDS ORDERED: MIRA33504 PO (16:46)
[2016-08-23] MEDS ORDERED: ASPI1TAB69 PO (16:46)
[2016-08-23] MEDS ORDERED: MULT-6 PO (16:46)
[2016-08-23] MEDS ORDERED: ALLO100T PO (16:46)
[2016-08-23] MEDS ORDERED: ASCO10002 PO (16:46)
[2016-08-23] MEDS ORDERED: GLIP5TAB8 PO (16:46)
[2016-08-23] MEDS ORDERED: D3 U5000 PO (16:46)
[2016-08-23] MEDS ORDERED: CARV12.52 PO (16:46)
[2016-08-23] MEDS ORDERED: FOLI1TAB4 PO (16:46)
[2016-08-23] MEDS ORDERED: FERR325T PO (16:46)
[2016-08-23] MEDS ORDERED: SERT-129 PO (16:46)
[2016-08-23] MEDS ORDERED: CART120C PO (16:46)
[2016-08-23] MEDS ORDERED: METF1000 PO (16:46)
[2016-08-23] MEDS ORDERED: HYDR-3533 PO (16:46)
[2016-08-23] MEDS ORDERED: TAMS0.4C4 PO (16:46)
[2016-08-23] MEDS ORDERED: PRAV40TA2 PO (16:46)
[2016-08-23] MEDS ORDERED: BUME1TAB28 PO (16:46)
--- NOTE | 2016-08-23 17:19 | HHI.PR ---
Addendum to Inpatient Note Additional Information I saw and evaluated patient. The patient is status post urgent hemodialysis and vascular placement. Denies any nausea, vomiting, abdominal pain. As per RN had an episode of hypoglycemia. Patient is awake alert oriented 3. Lungs are clear. S1-S2 present with regular rate and rhythm. Patient with acute kidney injury, severe hyperkalemia, generalized weakness. Hyperglycemia. Appreciate nephrology's discharge recommendations. Teeth monitor potassium. Patient status post hemodialysis. Follow-up nephrology recommendations. Hypoglycemia likely iatrogenic due to multiple doses of insulin use to treat hypoglycemia. Treated with D50 and continue to monitor Accu-Cheks. Tim Mclaughlin MD Aug 23, 2016 17:19
[2016-08-23] MEDS ORDERED: CHLORHEXIDINE GLUCONATE 2 % 1 PACK (2 CLOTHS)(extra cloths) TOP PRN (19:30)
[2016-08-23] MEDS: FERROUS SULFATE 325 MG (65 MG ELEMENTAL IRON) TAB PO SCH (21:37)
[2016-08-23] MEDS: PRAVASTATIN SOD 40 MG TAB PO SCH (21:37)
[2016-08-23] MEDS: CARVEDILOL 12.5 MG TAB PO SCH (21:37)
[2016-08-23 21:42] LABS: ALBUMIN SPE 3.61 GM/DL (3.50-5.00); ALPHA 1 GLOBULIN 0.26 GM/DL (0.11-0.29); ALPHA 2 GLOBULIN 0.84 GM/DL (0.22-1.00); BETA GLOBULINS (SPE) 0.78 GM/DL (0.53-1.03)
[2016-08-24] VITALS (14 sets, daily range): BP systolic 111–148; BP diastolic 53–66; PULSE 59–60; RESP 22–32; TEMP 97.8–98.3; O2SAT 99–100
[2016-08-24] MEDS: SODIUM CHLOR 0.9% 1000 ML INJ 1,000 ML IV SCH ×2 (03:20→09:24)
[2016-08-24] MEDS: CHLORHEXIDINE GLUCONATE 2 % 1 PACK (2 CLOTHS)(taper/protocol) TOP SCH (04:00)
[2016-08-24 04:43] LABS: AUTOMATED NEUTROPHIL # 8.8 TH/MM3 (1.8-7.7); BASOPHIL % 0.1 % (0.0-2.0); EOSINOPHIL % 0.2 % (0.0-4.0); HEMATOCRIT 28.2 % (39.0-51.0); HEMO FLAGS DIFF FINAL; LYMPH % 7.3 % (9.0-44.0); LYMPHOCYTE # 0.8 TH/MM3 (1.0-4.8); MEAN CELL VOLUME 88.7 FL (80.0-100.0); MEAN CORPUSCULAR HEMOGLOBIN 29.8 PG (27.0-34.0); MEAN CORPUSCULAR HGB CONC 33.6 % (32.0-36.0); MONO % 6.9 % (0.0-8.0); NEUT % 85.5 % (16.0-70.0); PLATELET COUNT 178 TH/MM3 (150-450); RED BLOOD COUNT 3.18 MIL/MM3 (4.50-5.90); RED CELL DISTRIBUTION WIDTH 20.8 % (11.6-17.2); WHITE BLOOD COUNT 10.3 TH/MM3 (4.0-11.0)
[2016-08-24 05:20] LABS: BICARBONATE 32.7 MEQ/L (21.0-32.0); POTASSIUM 3.3 MEQ/L (3.5-5.1)
[2016-08-24] MEDS: SERTRALINE HCL 100 MG TAB PO SCH (09:23)
[2016-08-24] MEDS: TAMSULOSIN HCL 0.4 MG CAP PO SCH (09:23)
[2016-08-24] MEDS: SODIUM CHLORIDE 0.9% FLUSH 5 ML FLUSH FLUSH SCH ×2 (09:23→21:30)
[2016-08-24] MEDS: FERROUS SULFATE 325 MG (65 MG ELEMENTAL IRON) TAB PO SCH ×2 (09:23→21:29)
[2016-08-24] MEDS: CARVEDILOL 12.5 MG TAB PO SCH ×2 (09:23→21:29)
[2016-08-24] MEDS: PANTOPRAZOLE SOD 40 MG DELAYED RELEASE TAB PO SCH (09:23)
--- NOTE | 2016-08-24 09:28 | HHI.PR ---
Subjective Remarks Patient seen in follow up for acute renal failure requiring dialysis, hyperkalemia, and generalized weakness. He reports that he is feeling better. K is 3.3 today. No chest pain or palpitations. Urine output is improving. Objective Vitals Vital Signs Date Time Temp Pulse Resp B/P Pulse Ox O2 Delivery O2 Flow Rate FiO2 08/24/16 08:46 99 Nasal Cannula 2.00 08/24/16 08:13 98.0 08/24/16 06:00 59 08/24/16 04:00 59 08/24/16 04:00 98.3 59 28 119/57 99 08/24/16 02:00 60 08/24/16 00:00 97.8 59 29 111/53 99 08/23/16 22:00 59 08/23/16 20:00 60 08/23/16 20:00 98.3 60 29 111/53 99 08/23/16 19:20 98 Nasal Cannula 2.00 08/23/16 19:12 98.3 60 20 122/58 99 08/23/16 18:10 60 27 121/60 100 Nasal Cannula 2 08/23/16 17:07 Nasal Cannula 2 08/23/16 17:06 98.0 08/23/16 17:02 59 25 123/72 100 Nasal Cannula 2 08/23/16 16:35 60 25 120/60 99 Nasal Cannula 2 08/23/16 16:00 60 28 134/60 100 Nasal Cannula 2 08/23/16 15:14 Nasal Cannula 2 08/23/16 15:10 58 24 131/83 97 Nasal Cannula 2 08/23/16 15:10 66 36 131/83 95 Nasal Cannula 2 08/23/16 14:00 60 25 120/60 99 Nasal Cannula 2 08/23/16 13:00 60 26 126/58 98 Nasal Cannula 2 08/23/16 11:49 58 25 138/60 98 2 08/23/16 11:02 58 26 139/64 Nasal Cannula 2 97 08/23/16 10:31 Nasal Cannula 2 08/23/16 10:27 98.1 60 16 142/65 97 Nasal Cannula 2 I/O 08/23/16 08/23/16 08/23/16 08/24/16 08/24/16 08/24/16 07:00 15:00 23:00 07:00 15:00 23:00 Intake Total 930 ml 520 ml Output Total 1150 ml 825 ml 200 ml Balance -1150 ml 105 ml 320 ml Intake Oral 480 ml 240 ml IV Total 450 ml 280 ml Output Urine Total 150 ml 825 ml 200 ml Stool Total 0 ml 0 ml Hemodialysis 1000 ml # Voids 0 0 # Bowel Movements 3 1 Result Diagram: 08/24/16 0344 08/24/16 0344 Imaging Last Impressions Renal Ultrasound 08/23/16 0000 Signed Impressions: Service Date/Time: Tuesday, August 23, 2016 08:05 - CONCLUSION: I suspect there are two small cortical calcification within the right kidney. No evidence of hydronephrosis or obstruction. Aries Castro MD Catheter Placement X-Ray 08/23/16 0000 Signed Impressions: Service Date/Time: Tuesday, August 23, 2016 09:59 - CONCLUSION: Uncomplicated line placement as above. Nick Perez MD Chest X-Ray 08/22/16 2019 Signed Impressions: Service Date/Time: Monday, August 22, 2016 20:31 - CONCLUSION: 1. Global cardiomegaly with probable early edematous changes with vascular indistinctness. Trace pleural fluid. Carlos A Spicer MD Objective Remarks GENERAL: Elderly male in no acute distress CARDIOVASCULAR: Normal rate and regular rhythm without murmurs, gallops, or rubs. RESPIRATORY: Air movement is fair. Breath sounds equal and clear to auscultation bilaterally. GASTROINTESTINAL: Abdomen soft, non-tender, non-distended. Normal active bowel sounds MUSCULOSKELETAL: Extremities without cyanosis, or edema. NEURO: Alert & Oriented x4 to person, place, time, situation. Moves all ext x4 PSYCH: Appropriate mood and affect. A/P Problem List: (1) Acute renal failure ICD Code: N17.9 Status: Acute (2) Hyperkalemia ICD Code: E87.5 Status: Acute (3) Generalized weakness ICD Code: R53.1 Status: Acute (4) CAD (coronary artery disease) ICD Code: I25.10 Status: Acute (5) HTN (hypertension) ICD Code: I10 Status: Acute (6) DM2 (diabetes mellitus, type 2) ICD Code: E11.9 Status: Acute (7) COPD (chronic obstructive pulmonary disease) ICD Code: J44.9 Status: Acute Assessment and Plan 81-year-old male with: Acute renal failure with severe hyperkalemia: - Appreciate nephrology following. Patient on hemodialysis with marked improvement in his renal function. His urine output continues to improve. K is on the lower side today. Hyperkalemia: Resolved. Potassium is on the lower side today. Discontinue Kayexalate. Monitor BMP. COPD: Not in exacerbation. Patient is oxygen dependent. Continue breathing treatments as needed. Add Symbicort. Supplemental oxygen. Diabetes mellitus type 2: Hold glipizide and metformin. Sliding scale insulin with Accu-Cheks. Hypertension: Continue antihypertensives. Coronary artery disease/atrial fibrillation: Continue aspirin and statin. Continue Coreg. Hold diltiazem. Patient has a pacemaker. Continue home medications for his chronic medical problems. Patient is stable to transfer to floor today. Problem Qualifiers (1) Acute renal failure: Qualified Code: N17.9 - Acute renal failure, unspecified acute renal failure type Hattie Morrison MD Aug 24, 2016 09:28
--- NOTE | 2016-08-24 11:23 | HHI.NPPN ---
Subjective History of Present Illness Patient is doing better Review of Systems General Constitutional: Fatigue Objective Data Data 08/23/16 08/24/16 19:00 07:00 Intake Total 1450 ml Output Total 1625 ml 550 ml Balance -1625 ml 900 ml Intake Oral 720 ml IV Total 730 ml Output Urine Total 625 ml 550 ml Stool Total 0 ml Hemodialysis 1000 ml # Voids 0 # Bowel Movements 4 Vital Signs Date Time Temp Pulse Resp B/P Pulse Ox O2 Delivery O2 Flow Rate FiO2 08/24/16 08:46 99 Nasal Cannula 2.00 08/24/16 08:13 98.0 08/24/16 06:00 59 08/24/16 04:00 59 08/24/16 04:00 98.3 59 28 119/57 99 08/24/16 02:00 60 08/24/16 00:00 97.8 59 29 111/53 99 08/23/16 22:00 59 08/23/16 20:00 60 08/23/16 20:00 98.3 60 29 111/53 99 08/23/16 19:20 98 Nasal Cannula 2.00 08/23/16 19:12 98.3 60 20 122/58 99 08/23/16 18:10 60 27 121/60 100 Nasal Cannula 2 08/23/16 17:07 Nasal Cannula 2 08/23/16 17:06 98.0 08/23/16 17:02 59 25 123/72 100 Nasal Cannula 2 08/23/16 16:35 60 25 120/60 99 Nasal Cannula 2 08/23/16 16:00 60 28 134/60 100 Nasal Cannula 2 08/23/16 15:14 Nasal Cannula 2 08/23/16 15:10 58 24 131/83 97 Nasal Cannula 2 08/23/16 15:10 66 36 131/83 95 Nasal Cannula 2 08/23/16 14:00 60 25 120/60 99 Nasal Cannula 2 08/23/16 13:00 60 26 126/58 98 Nasal Cannula 2 08/23/16 11:49 58 25 138/60 98 2 -: 08/24/16 0344 08/24/16 0344 Physical Exam General Appearance: Well Developed, Well Nourished Neck Neck Exam: Neck Supple Pulmonary Resp Exam: Clear Bilaterally, Breath Sounds Equal Cardiology CV Exam: Regular, Normal Sinus Rhythm Gastrointestinal/Abdomen GI Exam: Soft, Non-Tender, Bowel Sounds Present Extremeties Extremities Exam: No Edema Neurologic Neuro Exam: Alert, Awake Assessment/Plan Problem List: (1) Acute renal failure Plan: His acute renal failure appears to resolve and his urine output has improved. His potassium has now been on lower side Continue to observe for further improvement He does not need dialysis at this point (2) Hyperkalemia Plan: Resolved (3) DM2 (diabetes mellitus, type 2) Plan: Continue to monitor (4) HTN (hypertension) Plan: Follow blood pressure (5) CAD (coronary artery disease) Plan: We'll monitor (6) COPD (chronic obstructive pulmonary disease) Plan: He has shortness of breath Problem Qualifiers (1) Acute renal failure: Qualified Code: N17.9 - Acute renal failure, unspecified acute renal failure type Juan Alberto Perkins MD Aug 24, 2016 11:23
--- NOTE | 2016-08-24 15:53 | EKG ---
Date Performed: 08/23/2016 Time Performed: 13:17:29 PTAGE: 69 years EKG: Sinus rhythm RIGHT BUNDLE BRANCH BLOCK Compared to prior tracing no significant change ABNORMAL ECG PREVIOUS TRACING : 08/22/2016 20.36 DOCTOR: Ten Carrion Interpretating Date/Time 08/24/2016 15:52:25
[2016-08-24] MEDS: PRAVASTATIN SOD 40 MG TAB PO SCH (21:29)
[2016-08-25] VITALS (10 sets, daily range): BP systolic 126–172; BP diastolic 60–82; PULSE 59–61; RESP 16–26; TEMP 96.5–99.4; O2SAT 95–100
[2016-08-25] MEDS: CHLORHEXIDINE GLUCONATE 2 % 1 PACK (2 CLOTHS)(taper/protocol) TOP SCH (04:00)
[2016-08-25 04:42] LABS: MEAN CELL VOLUME 89.2 FL (80.0-100.0); MEAN CORPUSCULAR HEMOGLOBIN 29.4 PG (27.0-34.0); MEAN CORPUSCULAR HGB CONC 32.9 % (32.0-36.0); PLATELET COUNT 151 TH/MM3 (150-450); RED BLOOD COUNT 3.14 MIL/MM3 (4.50-5.90); RED CELL DISTRIBUTION WIDTH 20.2 % (11.6-17.2); REVIEW FLAG FINAL; WHITE BLOOD COUNT 8.5 TH/MM3 (4.0-11.0)
--- NOTE | 2016-08-25 08:41 | HHI.PR ---
Subjective Remarks Patient somewhat upset and down this morning because the patient next to him had an unfortunate event. Otherwise he is doing well. Urine output continues to improve and renal function improving. Potassium is low this morning. Objective Vitals Vital Signs Date Time Temp Pulse Resp B/P Pulse Ox O2 Delivery O2 Flow Rate FiO2 08/25/16 06:00 59 08/25/16 04:00 60 08/25/16 04:00 98.2 60 24 172/72 100 08/25/16 02:00 59 08/25/16 00:00 98.3 59 26 137/63 95 08/25/16 00:00 59 08/24/16 22:00 59 08/24/16 20:00 59 08/24/16 20:00 98.1 59 22 148/66 99 08/24/16 18:00 59 08/24/16 16:00 60 08/24/16 16:00 98.3 60 30 134/61 99 08/24/16 14:00 60 08/24/16 12:00 60 08/24/16 12:00 98.2 60 32 130/59 100 08/24/16 10:00 60 08/24/16 08:46 99 Nasal Cannula 2.00 I/O 08/24/16 08/24/16 08/24/16 08/25/16 08/25/16 08/25/16 07:00 15:00 23:00 07:00 15:00 23:00 Intake Total 520 ml 2110 ml 800 ml Output Total 200 ml 900 ml 625 ml Balance 320 ml 1210 ml 175 ml Intake Oral 240 ml 1250 ml 800 ml IV Total 280 ml 860 ml Output Urine Total 200 ml 900 ml 625 ml Stool Total 0 ml Result Diagram: 08/25/16 0335 08/25/16 0335 Imaging Last Impressions Renal Ultrasound 08/23/16 0000 Signed Impressions: Service Date/Time: Tuesday, August 23, 2016 08:05 - CONCLUSION: I suspect there are two small cortical calcification within the right kidney. No evidence of hydronephrosis or obstruction. Aries Castro MD Catheter Placement X-Ray 08/23/16 0000 Signed Impressions: Service Date/Time: Tuesday, August 23, 2016 09:59 - CONCLUSION: Uncomplicated line placement as above. Nick Perez MD Chest X-Ray 08/22/162018 Signed Impressions: Service Date/Time: Monday, August 22, 2016 20:31 - CONCLUSION: 1. Global cardiomegaly with probable early edematous changes with vascular indistinctness. Trace pleural fluid. Carlos A Spicer MD Objective Remarks GENERAL: Elderly male in no acute distress CARDIOVASCULAR: Normal rate and regular rhythm without murmurs, gallops, or rubs. RESPIRATORY: Air movement is fair. Breath sounds equal and clear to auscultation bilaterally. GASTROINTESTINAL: Abdomen soft, non-tender, non-distended. Normal active bowel sounds MUSCULOSKELETAL: Extremities without cyanosis, or edema. NEURO: Alert & Oriented x4 to person, place, time, situation. Moves all ext x4 PSYCH: Appropriate mood and affect. A/P Problem List: (1) Acute renal failure ICD Code: N17.9 Status: Acute (2) Hyperkalemia ICD Code: E87.5 Status: Acute (3) Generalized weakness ICD Code: R53.1 Status: Acute (4) CAD (coronary artery disease) ICD Code: I25.10 Status: Acute (5) HTN (hypertension) ICD Code: I10 Status: Acute (6) DM2 (diabetes mellitus, type 2) ICD Code: E11.9 Status: Acute (7) COPD (chronic obstructive pulmonary disease) ICD Code: J44.9 Status: Acute Assessment and Plan 81-year-old male with: Acute renal failure with severe hyperkalemia: On presentation. Acute renal failure resolving. - Appreciate nephrology following. Patient was on hemodialysis with marked improvement in his renal function. His urine output continues to improve. - Normal hemodialysis per nephrology. Potassium being replaced today. Follow- up tomorrow. Hyperkalemia: Resolved. Potassium is on the lower side today. Replace. Monitor BMP. COPD: Not in exacerbation. Patient is oxygen dependent. Continue breathing treatments as needed. Add Symbicort. Supplemental oxygen. Diabetes mellitus type 2: Hold glipizide and metformin. Sliding scale insulin with Accu-Cheks. Hypertension: Continue antihypertensives. Coronary artery disease/atrial fibrillation: Continue aspirin and statin. Continue Coreg. Hold diltiazem. Patient has a pacemaker. Continue home medications for his chronic medical problems. Discharge Planning If renal function continues to improve tomorrow and cleared by nephrology, may be discharged to a [place] [facility] facility. Problem Qualifiers (1) Acute renal failure: Qualified Code: N17.9 - Acute renal failure, unspecified acute renal failure type Hattie Morrison MD Aug 25, 2016 08:41
--- NOTE | 2016-08-25 08:45 | HHI.NPPN ---
Subjective History of Present Illness Patient is doing better Review of Systems General Constitutional: Fatigue Objective Data Data 08/24/16 08/25/16 19:00 07:00 Intake Total 1450 ml 1460 ml Output Total 650 ml 875 ml Balance 800 ml 585 ml Intake Oral 650 ml 1400 ml IV Total 800 ml 60 ml Output Urine Total 650 ml 875 ml Vital Signs Date Time Temp Pulse Resp B/P Pulse Ox O2 Delivery O2 Flow Rate FiO2 08/25/16 06:00 59 08/25/16 04:00 60 08/25/16 04:00 98.2 60 24 172/72 100 08/25/16 02:00 59 08/25/16 00:00 98.3 59 26 137/63 95 08/25/16 00:00 59 08/24/16 22:00 59 08/24/16 20:00 59 08/24/16 20:00 98.1 59 22 148/66 99 08/24/16 18:00 59 08/24/16 16:00 60 08/24/16 16:00 98.3 60 30 134/61 99 08/24/16 14:00 60 08/24/16 12:00 60 08/24/16 12:00 98.2 60 32 130/59 100 08/24/16 10:00 60 08/24/16 08:46 99 Nasal Cannula 2.00 -: 08/25/16 0335 08/25/16 0335 Physical Exam General Appearance: Well Developed, Well Nourished Neck Neck Exam: Neck Supple Pulmonary Resp Exam: Clear Bilaterally, Breath Sounds Equal Cardiology CV Exam: Regular, Normal Sinus Rhythm Gastrointestinal/Abdomen GI Exam: Soft, Non-Tender, Bowel Sounds Present Extremeties Extremities Exam: No Edema Neurologic Neuro Exam: Alert, Awake Assessment/Plan Problem List: (1) Acute renal failure Plan: His acute renal failure appears to resolve and his urine output has improved. 1.5 L UOP K 3 Replace no need to do dialysis as ARF resolving (2) Hyperkalemia Plan: Resolved (3) DM2 (diabetes mellitus, type 2) Plan: Continue to monitor (4) HTN (hypertension) Plan: Follow blood pressure (5) CAD (coronary artery disease) Plan: We'll monitor (6) COPD (chronic obstructive pulmonary disease) Plan: stable Problem Qualifiers (1) Acute renal failure: Qualified Code: N17.9 - Acute renal failure, unspecified acute renal failure type Juan Alberto Perkins MD Aug 25, 2016 08:45
[2016-08-25] MEDS: SERTRALINE HCL 100 MG TAB PO SCH (09:00)
[2016-08-25] MEDS ORDERED: POTASSIUM CHLORIDE 10 MEQ CONTROLLED RELEASE TAB PO ONE (09:00)
[2016-08-25] MEDS: PANTOPRAZOLE SOD 40 MG DELAYED RELEASE TAB PO SCH (09:00)
[2016-08-25] MEDS: CARVEDILOL 12.5 MG TAB PO SCH ×2 (09:00→21:44)
[2016-08-25] MEDS: TAMSULOSIN HCL 0.4 MG CAP PO SCH (09:00)
[2016-08-25] MEDS: ASPIRIN EC 81 MG TABEC PO SCH (09:00)
[2016-08-25] MEDS: SODIUM CHLORIDE 0.9% FLUSH 5 ML FLUSH FLUSH SCH ×2 (09:00→21:45)
[2016-08-25] MEDS: FERROUS SULFATE 325 MG (65 MG ELEMENTAL IRON) TAB PO SCH ×2 (09:00→21:43)
[2016-08-25 13:52] LABS: MYELOPEROXIDASE LESS THAN 1.0 AI (<1.0); PROTEINASE-3 LESS THAN 1.0 AI (<1.0)
[2016-08-25] MEDS: PRAVASTATIN SOD 40 MG TAB PO SCH (21:43)
[2016-08-25] MEDS ORDERED: GLUCAGON 1 MG/ML VIAL OTHER PRN (22:00)
[2016-08-25] MEDS ORDERED: DEXTROSE 50% IN WATER 50 ML VIAL(D50) IV PUSH PRN (22:00)
[2016-08-26] VITALS (13 sets, daily range): BP systolic 115–165; BP diastolic 60–76; PULSE 60–81; RESP 16–18; TEMP 96.6–98.1; O2SAT 96–100
[2016-08-26] MEDS: CHLORHEXIDINE GLUCONATE 2 % 1 PACK (2 CLOTHS)(taper/protocol) TOP SCH (04:00)
[2016-08-26] MEDS: INSULIN ASPART SUPPLEMENTAL SCALE SQ SCH ×4 (06:21→20:34)
[2016-08-26 07:12] LABS: HEMATOCRIT 29.3 % (39.0-51.0); MEAN CELL VOLUME 88.2 FL (80.0-100.0); MEAN CORPUSCULAR HEMOGLOBIN 29.9 PG (27.0-34.0); MEAN CORPUSCULAR HGB CONC 33.9 % (32.0-36.0); PLATELET COUNT 148 TH/MM3 (150-450); RED BLOOD COUNT 3.32 MIL/MM3 (4.50-5.90); RED CELL DISTRIBUTION WIDTH 19.8 % (11.6-17.2); REVIEW FLAG FINAL; WHITE BLOOD COUNT 8.5 TH/MM3 (4.0-11.0)
[2016-08-26 07:33] LABS: BICARBONATE 28.2 MEQ/L (21.0-32.0); POTASSIUM 3.6 MEQ/L (3.5-5.1)
[2016-08-26] MEDS: SODIUM CHLORIDE 0.9% FLUSH 5 ML FLUSH FLUSH SCH ×2 (09:58→20:34)
[2016-08-26] MEDS: SERTRALINE HCL 100 MG TAB PO SCH (09:58)
[2016-08-26] MEDS: ASPIRIN EC 81 MG TABEC PO SCH (09:58)
[2016-08-26] MEDS: TAMSULOSIN HCL 0.4 MG CAP PO SCH (09:58)
[2016-08-26] MEDS: PANTOPRAZOLE SOD 40 MG DELAYED RELEASE TAB PO SCH (09:58)
[2016-08-26] MEDS: FERROUS SULFATE 325 MG (65 MG ELEMENTAL IRON) TAB PO SCH ×2 (09:58→20:34)
--- NOTE | 2016-08-26 12:08 | HHI.PR ---
Subjective Remarks Follow acute kidney injury. Patient has no new complaints. Denies voiding issues discussed with RN discontinue Hutton catheter. Discussed with case management, patient can be discharged when okay by nephrology Objective Vitals Vital Signs Date Time Temp Pulse Resp B/P Pulse Ox O2 Delivery O2 Flow Rate FiO2 08/26/16 10:36 100 Nasal Cannula 4.00 08/26/16 04:00 97.9 69 16 131/74 98 08/26/16 00:00 98.1 62 18 150/67 97 08/25/16 20:00 99.4 60 16 151/68 95 08/25/16 16:00 98.2 60 16 126/60 100 I/O 08/25/16 08/25/16 08/25/16 08/26/16 08/26/16 08/26/16 07:00 15:00 23:00 07:00 15:00 23:00 Intake Total 800 ml 240 ml 240 ml 120 ml Output Total 625 ml 1525 ml 700 ml Balance 175 ml 240 ml -1285 ml -580 ml Intake Oral 800 ml 240 ml 240 ml 120 ml Output Urine Total 625 ml 1525 ml 700 ml # Bowel Movements 1 1 Result Diagram: 08/26/16 0616 08/26/16 0616 Objective Remarks GENERAL: Elderly male in no acute distress Neck: Vas-Cath right IJ CARDIOVASCULAR: Normal rate and regular rhythm without murmurs, gallops, or rubs. RESPIRATORY: Air movement is fair. Breath sounds equal and clear to auscultation bilaterally. GASTROINTESTINAL: Abdomen soft, non-tender, non-distended. Normal active bowel sounds MUSCULOSKELETAL: Extremities without cyanosis, or edema. NEURO: Alert & Oriented x4 to person, place, time, situation. Moves all ext x4 PSYCH: Appropriate mood and affect. Procedures Vas-Cath A/P Problem List: (1) Acute renal failure ICD Code: N17.9 Status: Acute (2) Hyperkalemia ICD Code: E87.5 Status: Resolved (3) Generalized weakness ICD Code: R53.1 Status: Acute (4) CAD (coronary artery disease) ICD Code: I25.10 Status: Chronic (5) HTN (hypertension) ICD Code: I10 Status: Chronic (6) DM2 (diabetes mellitus, type 2) ICD Code: E11.9 Status: Chronic (7) COPD (chronic obstructive pulmonary disease) ICD Code: J44.9 Status: Chronic Assessment and Plan 81-year-old male with: Acute renal failure with severe hyperkalemia: On presentation. Acute renal failure resolving. - Appreciate nephrology following. Patient was on hemodialysis with marked improvement in his renal function. His urine output continues to improve. - Hold hemodialysis per nephrology. Potassium being replaced today. Follow-up tomorrow. Hyperkalemia: Resolved. Monitor BMP. COPD with chronic respiratory failure on home oxygen: Not in exacerbation. Patient is oxygen dependent. Continue breathing treatments as needed. Add Symbicort. Supplemental oxygen. Diabetes mellitus type 2: Hold glipizide and metformin. Sliding scale insulin with Accu-Cheks. Hypertension: Continue antihypertensives. Coronary artery disease/atrial fibrillation: Continue aspirin and statin. Continue Coreg. Hold diltiazem. Patient has a pacemaker. Discontinue Hutton catheter Deconditioning. continue physical therapy Discharge Planning DC when cleared by nephrology and SNF arranged Problem Qualifiers (1) Acute renal failure: Qualified Code: N17.9 - Acute renal failure, unspecified acute renal failure type Rufino Velásquez MD Aug 26, 2016 12:08 Coronary artery disease/atrial fibrillation: Continue aspirin and statin. Continue Coreg. Hold diltiazem. Patient has a pacemaker. Continue home medications for his chronic medical problems. Problem Qualifiers (1) Acute renal failure: Qualified Code: N17.9 - Acute renal failure, unspecified acute renal failure type Rufino Velásquez MD Aug 26, 2016 12:08
--- NOTE | 2016-08-26 12:49 | HHI.DCPOC ---
Discharge Care Plan Diagnosis: (1) Acute renal failure Your Health Problems Are: Difficulty with ADL Exercise Tolerance Goals to Promote Your Health * To prevent worsening of your condition and complications * To maintain your health at the optimal level Directions to Meet Your Goals Take your medications as prescribed Follow your dietary instruction Follow activity as directed Keep your appointments as scheduled Take your immunizations and boosters as scheduled If your symptoms worsen call your PCP, if no PCP go to Urgent Care Center or Emergency Room Smoking is Dangerous to Your Health. Avoid second hand smoke Call the 24-hour hour crisis hotline for domestic abuse at Rufino Velásquez MD Aug 26, 2016 12:49
[2016-08-26] MEDS: CARVEDILOL 12.5 MG TAB PO SCH ×2 (12:52→20:34)
--- NOTE | 2016-08-26 18:30 | HHI.NPPN ---
Subjective History of Present Illness Patient is doing better Review of Systems General Constitutional: Fatigue Objective Data Data 08/25/16 08/26/16 19:00 07:00 Intake Total 240 ml 360 ml Output Total 2225 ml Balance 240 ml -1865 ml Intake Oral 240 ml 360 ml Output Urine Total 2225 ml # Bowel Movements 1 1 Vital Signs Date Time Temp Pulse Resp B/P Pulse Ox O2 Delivery O2 Flow Rate FiO2 08/26/16 12:00 60 08/26/16 10:36 100 Nasal Cannula 4.00 08/26/16 10:00 60 08/26/16 04:00 97.9 69 16 131/74 98 08/26/16 00:00 98.1 62 18 150/67 97 08/25/16 20:00 99.4 60 16 151/68 95 -: 08/26/16 0616 08/26/16 0616 Physical Exam General Appearance: Well Developed, Well Nourished Neck Neck Exam: Neck Supple Pulmonary Resp Exam: Clear Bilaterally, Breath Sounds Equal Cardiology CV Exam: Regular, Normal Sinus Rhythm Gastrointestinal/Abdomen GI Exam: Soft, Non-Tender, Bowel Sounds Present Extremeties Extremities Exam: No Edema Neurologic Neuro Exam: Alert, Awake Assessment/Plan Problem List: (1) Acute renal failure Plan: His acute renal failure appears to resolve and his urine output has improved. 2.2 L UOP Cr 2 dc vascath need to follow with PCP Nephrology to follow PRN as ARF resolving (2) Hyperkalemia Plan: Resolved (3) DM2 (diabetes mellitus, type 2) Plan: Continue to monitor (4) HTN (hypertension) Plan: Follow blood pressure (5) CAD (coronary artery disease) Plan: STABLE (6) COPD (chronic obstructive pulmonary disease) Plan: stable Problem Qualifiers (1) Acute renal failure: Qualified Code: N17.9 - Acute renal failure, unspecified acute renal failure type Juan Alberto Perkins MD Aug 26, 2016 18:30
[2016-08-26] MEDS: PRAVASTATIN SOD 40 MG TAB PO SCH (20:34)
[2016-08-27] VITALS (9 sets, daily range): BP systolic 126–154; BP diastolic 57–69; PULSE 59–62; RESP 16–19; TEMP 96–99.4; O2SAT 96–98
[2016-08-27] MEDS: CHLORHEXIDINE GLUCONATE 2 % 1 PACK (2 CLOTHS)(taper/protocol) TOP SCH (03:46)
[2016-08-27] MEDS: INSULIN ASPART SUPPLEMENTAL SCALE SQ SCH ×4 (05:59→20:01)
[2016-08-27 10:05] LABS: BICARBONATE 29.1 MEQ/L (21.0-32.0); POTASSIUM 3.8 MEQ/L (3.5-5.1)
[2016-08-27] MEDS: ASPIRIN EC 81 MG TABEC PO SCH (10:33)
[2016-08-27] MEDS: FERROUS SULFATE 325 MG (65 MG ELEMENTAL IRON) TAB PO SCH ×2 (10:33→19:57)
[2016-08-27] MEDS: TAMSULOSIN HCL 0.4 MG CAP PO SCH (10:33)
[2016-08-27] MEDS: PANTOPRAZOLE SOD 40 MG DELAYED RELEASE TAB PO SCH (10:34)
[2016-08-27] MEDS: SODIUM CHLORIDE 0.9% FLUSH 5 ML FLUSH FLUSH SCH ×2 (10:34→19:58)
[2016-08-27] MEDS: CARVEDILOL 12.5 MG TAB PO SCH ×2 (10:34→19:53)
[2016-08-27] MEDS: SERTRALINE HCL 100 MG TAB PO SCH (10:37)
--- NOTE | 2016-08-27 11:42 | HHI.PR ---
Subjective Remarks Follow-up acute kidney injury. He has no new complaints. He is voiding. Discussed with RN, patient cleared for discharge Objective Vitals Vital Signs Date Time Temp Pulse Resp B/P Pulse Ox O2 Delivery O2 Flow Rate FiO2 08/27/16 08:00 98.1 61 18 152/69 97 08/27/16 04:00 97.5 60 18 139/66 96 08/27/16 00:00 97.7 62 16 129/65 96 08/26/16 21:00 60 08/26/16 20:06 99 Nasal Cannula 3.00 08/26/16 20:00 97.8 60 16 148/72 96 08/26/16 18:00 63 08/26/16 16:00 63 08/26/16 16:00 97.4 81 16 115/76 98 08/26/16 14:00 62 08/26/16 12:00 97.6 60 16 132/60 98 08/26/16 12:00 60 I/O 08/26/16 08/26/16 08/26/16 08/27/16 08/27/16 08/27/16 07:00 15:00 23:00 07:00 15:00 23:00 Intake Total 120 ml 540 ml 480 ml Output Total 700 ml 1100 ml Balance -580 ml 540 ml -620 ml Intake Oral 120 ml 540 ml 480 ml IV Total 0 ml Output Urine Total 700 ml 1100 ml Result Diagram: 08/26/16 0616 08/27/16 0850 Objective Remarks GENERAL: Elderly male in no acute distress Neck: Vas-Cath right IJ removed CARDIOVASCULAR: Normal rate and regular rhythm without gallops, or rubs. Systolic murmur noted RESPIRATORY: Air movement is fair. Breath sounds equal and clear to auscultation bilaterally. GASTROINTESTINAL: Abdomen soft, non-tender, non-distended. Normal active bowel sounds MUSCULOSKELETAL: Extremities without cyanosis, or edema. NEURO: Alert & Oriented x4 to person, place, time, situation. Moves all ext x4 PSYCH: Appropriate mood and affect. Procedures Vas-Cath A/P Problem List: (1) Acute renal failure ICD Code: N17.9 Status: Acute (2) Hyperkalemia ICD Code: E87.5 Status: Resolved (3) Generalized weakness ICD Code: R53.1 Status: Acute (4) CAD (coronary artery disease) ICD Code: I25.10 Status: Chronic (5) HTN (hypertension) ICD Code: I10 Status: Chronic (6) DM2 (diabetes mellitus, type 2) ICD Code: E11.9 Status: Chronic (7) COPD (chronic obstructive pulmonary disease) ICD Code: J44.9 Status: Chronic Assessment and Plan 81-year-old male with: Acute renal failure with severe hyperkalemia: On presentation. Acute renal failure resolving. - Appreciate nephrology following. Patient was on hemodialysis with marked improvement in his renal function. His urine output continues to improve. - Hold hemodialysis per nephrology. Hyperkalemia: Resolved. Monitor BMP. COPD with chronic respiratory failure on home oxygen: Not in exacerbation. Patient is oxygen dependent. Continue breathing treatments as needed. Add Symbicort. Supplemental oxygen. Diabetes mellitus type 2: Hold glipizide and metformin. Sliding scale insulin with Accu-Cheks. Hypertension: Continue antihypertensives. Coronary artery disease/atrial fibrillation: Continue aspirin and statin. Continue Coreg. Hold diltiazem. Patient has a pacemaker. Discontinued Hutton catheter Deconditioning. continue physical therapy Discharge Planning DC when SNF arranged Problem Qualifiers (1) Acute renal failure: Qualified Code: N17.9 - Acute renal failure, unspecified acute renal failure type Rufino Velásquez MD Aug 27, 2016 11:41
--- NOTE | 2016-08-27 14:03 | HHI.DS ---
Discharge Summary Admission Date Aug 22, 2016 at 22:37 Discharge Date: Aug 27, 2016 Admitting Diagnosis Renal failure, hyperkalemia, generalized weakness (1) Acute renal failure ICD Code: N17.9 Diagnosis: Principal (2) Hyperkalemia ICD Code: E87.5 Diagnosis: Principal (3) Generalized weakness ICD Code: R53.1 Diagnosis: Principal (4) CAD (coronary artery disease) ICD Code: I25.10 Diagnosis: Secondary (5) HTN (hypertension) ICD Code: I10 Diagnosis: Secondary (6) DM2 (diabetes mellitus, type 2) ICD Code: E11.9 Diagnosis: Secondary (7) COPD (chronic obstructive pulmonary disease) ICD Code: J44.9 Diagnosis: Secondary Procedures Vas-Cath Brief History - From Admission History and patient, ER physician to medication, and review of medical records. Patient reported that today as he was walking at home, he suddenly fell backwards. He stated he was with his family members who is supporting him and therefore he did not hit his head. Denies loss of consciousness. He did however report that he was very dizzy prior to his fall. Reports that he has been having nausea and vomiting all day long and vomited whatever he ate. Denies any black color stools or red-colored stools. Denies any blood in his vomitus. Denies fever. Reports of some abdominal pain associated with this vomiting episodes. No sick contacts. Patient denies any prior history of kidney disease. In the emergency room, patient was found to have acute renal failure with life- threatening hyperkalemia. He was treated with cocktail regimen of insulin/dextrose/Kayexalate/calcium gluconate for his hyperkalemia. There are no noted cardiac arrhythmia on telemetry monitoring or on EKGs. CBC/BMP: 08/26/16 0616 08/27/16 0850 Significant Findings Laboratory Tests Test 08/25/16 08/26/16 08/27/16 03:35 06:16 08:50 Red Blood Count 3.14 MIL/MM3 3.32 MIL/MM3 (4.50-5.90) (4.50-5.90) Hemoglobin 9.2 GM/DL 9.9 GM/DL (13.0-17.0) (13.0-17.0) Hematocrit 28.0 % 29.3 % (39.0-51.0) (39.0-51.0) Red Cell Distribution Width 20.2 % 19.8 % (11.6-17.2) (11.6-17.2) Potassium Level 3.0 MEQ/L (3.5-5.1) Chloride Level 96 MEQ/L (98-107) Carbon Dioxide Level 34.0 MEQ/L (21.0-32.0) Blood Urea Nitrogen 31 MG/DL (7-18) 27 MG/DL (7-18) 29 MG/DL (7-18) Creatinine 3.00 MG/DL 2.07 MG/DL 1.64 MG/DL (0.60-1.30) (0.60-1.30) (0.60-1.30) Estimat Glomerular Filtration 20 ML/MIN (>89) 31 ML/MIN (>89) 40 ML/MIN (>89) Rate Random Glucose 150 MG/DL 140 MG/DL 141 MG/DL (74-106) (74-106) (74-106) Platelet Count 148 TH/MM3 (150-450) Imaging Last Impressions Renal Ultrasound 08/23/16 0000 Signed Impressions: Service Date/Time: Tuesday, August 23, 2016 08:05 - CONCLUSION: I suspect there are two small cortical calcification within the right kidney. No evidence of hydronephrosis or obstruction. Aries Castro MD Catheter Placement X-Ray 08/23/16 0000 Signed Impressions: Service Date/Time: Tuesday, August 23, 2016 09:59 - CONCLUSION: Uncomplicated line placement as above. Nick Perez MD Chest X-Ray 08/22/162018 Signed Impressions: Service Date/Time: Monday, August 22, 2016 20:31 - CONCLUSION: 1. Global cardiomegaly with probable early edematous changes with vascular indistinctness. Trace pleural fluid. Carlos A Spicer MD PE at Discharge GENERAL: Elderly male in no acute distress Neck: Vas-Cath right IJ removed CARDIOVASCULAR: Normal rate and regular rhythm without gallops, or rubs. Systolic murmur noted RESPIRATORY: Air movement is fair. Breath sounds equal and clear to auscultation bilaterally. GASTROINTESTINAL: Abdomen soft, non-tender, non-distended. Normal active bowel sounds MUSCULOSKELETAL: Extremities without cyanosis, or edema. NEURO: Alert & Oriented x4 to person, place, time, situation. Moves all ext x4 PSYCH: Appropriate mood and affect. Hospital Course 81-year-old male with: Acute renal failure with severe hyperkalemia: On presentation. Acute renal failure resolving. - Appreciate nephrology following. Patient was on hemodialysis with marked improvement in his renal function. His urine output continues to improve. - Hold hemodialysis per nephrology. Hyperkalemia: Resolved. Monitor BMP. COPD with chronic respiratory failure on home oxygen: Not in exacerbation. Patient is oxygen dependent. Continue breathing treatments as needed. Add Symbicort. Supplemental oxygen. Diabetes mellitus type 2: Hold glipizide and metformin. Sliding scale insulin with Accu-Cheks. Hypertension: Continue antihypertensives. Coronary artery disease/atrial fibrillation: Continue aspirin and statin. Continue Coreg. Hold diltiazem. Patient has a pacemaker. Discontinued Hutton catheter Deconditioning. continue physical therapy Pt Condition on Discharge: Stable Discharge Disposition: Discharge to SNF Discharge Time: > 30 minutes Discharge Instructions DIET: Follow Instructions for: Heart Healthy Diet, Diabetic Diet Activities you can perform: Regular-No Restrictions Activities to Avoid: Driving Follow up Referrals: Nephrology - 1 Week PCP Follow-up - 2-3 Days New Orders: BASIC METABOLIC PROF - 08/29/16 Continued Medications: Ascorbic Acid ([id number]) 1,000 Mg Tab 1000 MG PO DAILY Nutritional Supplement #30 Ref 0 TAB Aspirin (Aspirin) 81 Mg Tabdr 81 MG PO DAILY TAB Carvedilol (Carvedilol) 12.5 Mg Tab 12.5 MG PO BID #60 Ref 0 TAB Cholecalciferol (D3 Ultra Strength) 5,000 Unit Cap 5000 UNITS PO DAILY Nutritional Supplement #30 Ref 0 CAP Cyanocobalamin (B-12) 2,500 Mcg Subl 2500 MCG PO EVERY OTHER DAY Nutritional Supplement Ref 0 TAB.SL Ferrous Sulfate (Ferrous Sulfate) 325 Mg Tab 325 MG PO BID Nutritional Supplement #30 Ref 0 TAB Folic Acid (Folate) 1 Mg Tab 1 MG PO DAILY Nutritional Supplement Ref 0 TAB Multiple Vitamins W/ Minerals (Centrum) 1 Tab 1 TAB PO DAILY Nutritional Supplement Ref 0 TAB Pantoprazole (Pantoprazole) 40 Mg Tab 40 MG PO DAILY Reflux #30 Ref 0 TAB Pravastatin (Pravastatin) 40 Mg Tab 40 MG PO HS Cholesterol Management #30 Ref 0 TAB Sertraline (Sertraline) 100 Mg Tab 100 MG PO DAILY #30 Ref 0 TAB Tamsulosin (Tamsulosin) 0.4 Mg Cap 0.4 MG PO DAILY Manage Prostate Problems #30 Ref 0 CAP Rufino Velásquez MD Aug 27, 2016 14:03
[2016-08-27] MEDS: PRAVASTATIN SOD 40 MG TAB PO SCH (19:57)
[2016-08-27] MEDS ORDERED: RESP: ALBUTEROL 2.5 MG/IPRATROPIUM 0.5 MG NEB (PRN) NEB (21:30)
[2016-08-27] MEDS: guaiFENesin E.R. 600 MG TAB PO SCH (22:25)
[2016-08-28] VITALS (9 sets, daily range): BP systolic 129–158; BP diastolic 52–70; PULSE 60–63; RESP 18–20; TEMP 97.2–98.8; O2SAT 94–99
[2016-08-28] MEDS: CHLORHEXIDINE GLUCONATE 2 % 1 PACK (2 CLOTHS)(taper/protocol) TOP SCH (04:00)
[2016-08-28] MEDS: INSULIN ASPART SUPPLEMENTAL SCALE SQ SCH ×4 (04:45→19:44)
[2016-08-28] MEDS: PANTOPRAZOLE SOD 40 MG DELAYED RELEASE TAB PO SCH (09:23)
[2016-08-28] MEDS: SODIUM CHLORIDE 0.9% FLUSH 5 ML FLUSH FLUSH SCH ×2 (09:23→19:45)
[2016-08-28] MEDS: TAMSULOSIN HCL 0.4 MG CAP PO SCH (09:23)
[2016-08-28] MEDS: guaiFENesin E.R. 600 MG TAB PO SCH ×2 (09:23→19:45)
[2016-08-28] MEDS: CARVEDILOL 12.5 MG TAB PO SCH ×2 (09:23→19:45)
[2016-08-28] MEDS: ASPIRIN EC 81 MG TABEC PO SCH (09:23)
[2016-08-28] MEDS: FERROUS SULFATE 325 MG (65 MG ELEMENTAL IRON) TAB PO SCH ×2 (09:23→19:45)
[2016-08-28] MEDS: SERTRALINE HCL 100 MG TAB PO SCH (09:23)
--- NOTE | 2016-08-28 09:55 | HHI.PR ---
Subjective Remarks F/U LUKE. Voiding. C/o cough no son hx COPD on nocturnal oxygen dw RN Objective Vitals Vital Signs Date Time Temp Pulse Resp B/P Pulse Ox O2 Delivery O2 Flow Rate FiO2 08/28/16 04:00 98.3 60 18 149/67 96 08/28/16 00:00 98.8 63 18 145/67 94 08/27/16 20:01 59 08/27/16 20:00 99.4 61 19 131/57 97 08/27/16 16:00 97.6 60 18 126/59 96 08/27/16 13:30 98 Nasal Cannula 1.00 08/27/16 12:00 96.0 60 18 154/68 98 I/O 08/27/16 08/27/16 08/27/16 08/28/16 08/28/16 08/28/16 07:00 15:00 23:00 07:00 15:00 23:00 Intake Total 480 ml 840 ml 240 ml 240 ml Output Total 1100 ml 700 ml 650 ml 400 ml Balance -620 ml 140 ml -410 ml -160 ml Intake Oral 480 ml 840 ml 240 ml 240 ml Output Urine Total 1100 ml 700 ml 650 ml 400 ml # Voids 1 # Bowel Movements 1 0 Result Diagram: 08/26/16 0616 08/27/16 0850 Imaging Last Impressions Renal Ultrasound 08/23/16 0000 Signed Impressions: Service Date/Time: Tuesday, August 23, 2016 08:05 - CONCLUSION: I suspect there are two small cortical calcification within the right kidney. No evidence of hydronephrosis or obstruction. Aries Castro MD Catheter Placement X-Ray 08/23/16 0000 Signed Impressions: Service Date/Time: Tuesday, August 23, 2016 09:59 - CONCLUSION: Uncomplicated line placement as above. Nick Perez MD Chest X-Ray 08/22/16 2019 Signed Impressions: Service Date/Time: Monday, August 22, 2016 20:31 - CONCLUSION: 1. Global cardiomegaly with probable early edematous changes with vascular indistinctness. Trace pleural fluid. Carlos A Spicer MD Objective Remarks GENERAL: Elderly male in no acute distress Neck: Vas-Cath right IJ removed CARDIOVASCULAR: Normal rate and regular rhythm without gallops, or rubs. Systolic murmur noted RESPIRATORY: Air movement is fair. Breath sounds equal and clear to auscultation bilaterally. GASTROINTESTINAL: Abdomen soft, non-tender, non-distended. Normal active bowel sounds MUSCULOSKELETAL: Extremities without cyanosis, or edema. NEURO: Alert & Oriented x4 to person, place, time, situation. Moves all ext x4 PSYCH: Appropriate mood and affect. Procedures Vas-Cath A/P Problem List: (1) Acute renal failure ICD Code: N17.9 Status: Acute (2) Hyperkalemia ICD Code: E87.5 Status: Resolved (3) Generalized weakness ICD Code: R53.1 Status: Acute (4) CAD (coronary artery disease) ICD Code: I25.10 Status: Chronic (5) HTN (hypertension) ICD Code: I10 Status: Chronic (6) DM2 (diabetes mellitus, type 2) ICD Code: E11.9 Status: Chronic (7) COPD (chronic obstructive pulmonary disease) ICD Code: J44.9 Status: Chronic Assessment and Plan 81-year-old male with: Acute renal failure with severe hyperkalemia: On presentation. Acute renal failure resolving. - Appreciate nephrology following. Patient was on hemodialysis with marked improvement in his renal function. His urine output continues to improve. - Hold hemodialysis per nephrology. Hyperkalemia: Resolved. Monitor BMP. COPD with chronic respiratory failure on home oxygen: Not in exacerbation. Patient is oxygen dependent. Continue breathing treatments as needed. Add Symbicort. Supplemental oxygen. Diabetes mellitus type 2: Hold glipizide and metformin. Sliding scale insulin with Accu-Cheks. Hypertension: Continue antihypertensives. Coronary artery disease/atrial fibrillation: Continue aspirin and statin. Continue Coreg. Hold diltiazem. Patient has a pacemaker. Discontinued Hutton catheter Deconditioning. continue physical therapy Discharge Planning DC when SNF arranged. Per CM, dc in am Problem Qualifiers (1) Acute renal failure: Qualified Code: N17.9 - Acute renal failure, unspecified acute renal failure type Rufino Velásquez MD Aug 28, 2016 09:55
[2016-08-28] MEDS ORDERED: ALBU0.08 NEB (09:56)
[2016-08-28] MEDS ORDERED: IPRASOL INH (09:56)
[2016-08-28] MEDS: RESP: ALBUTEROL 2.5 MG/IPRATROPIUM 0.5 MG NEB (SCH) NEB ×3 (12:08→20:07)
[2016-08-28] MEDS: PRAVASTATIN SOD 40 MG TAB PO SCH (19:44)
[2016-08-29] VITALS (10 sets, daily range): BP systolic 103–146; BP diastolic 49–69; PULSE 59–62; RESP 17–19; TEMP 97.4–98.5; O2SAT 97–100
[2016-08-29] MEDS: INSULIN ASPART SUPPLEMENTAL SCALE SQ SCH ×4 (06:21→20:57)
[2016-08-29] MEDS: ASPIRIN EC 81 MG TABEC PO SCH (09:00)
[2016-08-29] MEDS: SODIUM CHLORIDE 0.9% FLUSH 5 ML FLUSH FLUSH SCH ×2 (09:00→20:52)
[2016-08-29] MEDS: FERROUS SULFATE 325 MG (65 MG ELEMENTAL IRON) TAB PO SCH ×2 (09:00→19:21)
[2016-08-29] MEDS: TAMSULOSIN HCL 0.4 MG CAP PO SCH (09:00)
[2016-08-29] MEDS: RESP: ALBUTEROL 2.5 MG/IPRATROPIUM 0.5 MG NEB (SCH) NEB ×4 (09:21→19:22)
[2016-08-29 10:46] LABS: HEMATOCRIT 21.4 % (39.0-51.0); REVIEW FLAG FINAL
--- NOTE | 2016-08-29 11:12 | PD.CONS ---
HPI History of Present Illness This is a 81 year old male with PMH of A-fib, CABG, pace maker, with history of recurrent GI bleed and under went EGD/colonoscopy, CE in [place] and no source was found according to . Patient was admitted here for a fall and was found to have acute renal failure, hyperkalemia, he under went HD with good results, he was about to be discharged, but this morning he had a significant black tarry stools that was noted in the measuring hat in the toilet. He denies any other associated including nausea, vomiting, hematemesis, or abdomen pain. He reports loose stools today. hgb today is 7.4, base line is around 10. He takes aspirin, denies alcohol or NSAIDs. (Adrianna Lieberman) PFSH Past Medical History Hypertension Diabetes CADstatus post CABG Hyperlipidemia Cardiac murmurvalvular heart diseasestatus post aortic valve replacement bovine Atrial fibrillation Sick sinus syndromestatus post pacemaker placement PADstatus post right lower extremity stenting COPDhome nocturnal oxygen Reports of history of left upper extremity DVT TIAs Past Surgical History CABG Right lower extremity stenting Pacemaker placement Aortic valve replacement cholecystectomy (Adrianna Lieberman) Coded Allergies: Heparin (Verified Allergy, Severe, 08/22/16) Medications Current Medications Medications (Trade) Dose Ordered Sig/Jaye Route Start Time Stop Time Status Last Admin (NS Flush) 2 ml UNSCH PRN FLUSH 08/22/16 22:45 08/23/16 04:15 (NS Flush) 2 ml BID FLUSH 08/23/16 09:00 08/28/16 19:45 Naloxone HCl 0.4 mg 0.4 mg UNSCH PRN IV 08/22/16 22:45 Sodium Chloride 1,000 ml @ 0 mls/hr Q0M PRN IV 08/23/16 06:46 Sodium Chloride 1,000 ml @ 200 mls/hr Q5H PRN IV 08/23/16 06:46 08/23/16 12:49 (NS 1000 ml Inj) 1,000 ml @ 0 mls/hr Q0M PRN IV 08/23/16 06:46 (Mannitol Inj) 12.5 gm UNSCH PRN IV 08/23/16 07:00 (Albumin 25% Inj) 25 gm UNSCH PRN IV 08/23/16 07:00 (NS Flush) 5 ml UNSCH PRN IVF 08/23/16 07:00 (Gentamicin (Dialysis) Inj) 20 mg UNSCH PRN IV 08/23/16 07:00 08/23/16 12:50 (Zofran Inj) 4 mg UNSCH PRN IV 08/23/16 07:00 08/23/16 07:53 (Tylenol) 650 mg UNSCH PRN PO 08/23/16 07:00 (Benadryl) 25 mg UNSCH PRN PO 08/23/16 07:00 (Nitrostat Sl) 0.4 mg UNSCH PRN SL 08/23/16 07:00 (Catapres) 0.1 mg UNSCH PRN PO 08/23/16 07:00 (Epogen Inj) 4,000 units UNSCH PRN IV 08/23/16 07:00 08/23/16 14:16 (Gelfoam 12 Mm/7 Mm Top) 1 foam UNSCH PRN TOP 08/23/16 07:00 (NS Flush) UNSCH PRN IVF 08/23/16 10:45 Miscellaneous Information Patient in critical care unit? Ass... Q361D XX 08/23/16 19:30 (Coreg) 12.5 mg BID PO 08/23/16 21:00 08/28/16 09:23 (Ferrous Sulfate) 325 mg BID PO 08/23/16 21:00 08/28/16 19:45 (Protonix) 40 mg DAILY PO 08/24/16 09:00 08/28/16 09:23 (Pravachol) 40 mg HS PO 08/23/16 21:00 08/28/16 19:44 (Zoloft) 100 mg DAILY PO 08/24/16 09:00 08/28/16 09:23 (Flomax) 0.4 mg DAILY PO 08/24/16 09:00 08/28/16 09:23 (Ecotrin Ec) 81 mg DAILY PO 08/25/16 09:00 08/28/16 09:23 (D50w (Vial) Inj) 25 ml UNSCH PRN IV PUSH 08/25/16 22:00 (Glucagon Inj) 1 mg UNSCH PRN OTHER 08/25/16 22:00 (Mucinex Er) 600 mg BID PO 08/27/16 21:30 2/5/17 19:45 Family History Reports his sister of breast cancer. Brother of MVA. Social History Used to smoke cigarettes, quit more than 10 years ago. denies any alcohol abuse or drug abuse. (Adrianna Lieberman) Review of Systems Constitutional: COMPLAINS OF: Fatigue Endocrine: DENIES: Polyuria Eyes: DENIES: Double Vision Ears, nose, mouth, throat: DENIES: Hoarseness Respiratory: DENIES: Shortness of breath Cardiovascular: DENIES: Lower Extremity Edema Gastrointestinal: COMPLAINS OF: Black stools, Bloody stools, Diarrhea, DENIES : Abdominal pain, Constipation, Nausea, Vomiting, Difficulty Swallowing, Anorexia, Odynophagia, Swelling of Abdomen, Heartburn, Hematemesis Genitourinary: DENIES: Hematuria Musculoskeletal: DENIES: Neck pain Integumentary: DENIES: Jaundice Hematologic/lymphatic: DENIES: Bruising Immunologic/allergic: DENIES: Eczema Neurologic: COMPLAINS OF: Localized weakness, DENIES: Headache Psychiatric: DENIES: Anxiety (Adrianna Lieberman) GI Exam Vitals I&O Vital Signs Date Time Temp Pulse Resp B/P Pulse Ox O2 Delivery O2 Flow Rate FiO2 08/29/16 09:00 97.7 60 18 130/55 97 08/29/16 08:00 97.4 60 18 121/56 100 08/29/16 04:00 97.5 60 17 128/69 99 08/29/16 00:00 97.7 60 19 146/66 97 08/28/16 20:06 60 08/28/16 20:00 98.4 60 18 129/52 99 08/28/16 16:08 95 Nasal Cannula 2.00 08/28/16 14:00 97.2 60 20 158/70 99 08/28/16 12:17 95 Nasal Cannula 2.00 08/28/16 12:00 97.6 60 20 152/68 99 I/O 08/28/16 08/28/16 08/28/16 08/29/16 08/29/16 08/29/16 07:00 15:00 23:00 07:00 15:00 23:00 Intake Total 240 ml 720 ml 480 ml 120 ml Output Total 400 ml 225 ml 600 ml 800 ml Balance -160 ml 495 ml -120 ml -680 ml Intake Oral 240 ml 720 ml 480 ml 120 ml Output Urine Total 400 ml 225 ml 600 ml 800 ml # Voids 1 2 1 # Bowel Movements 0 0 Imaging Last Impressions Renal Ultrasound 08/23/16 0000 Signed Impressions: Service Date/Time: Tuesday, August 23, 2016 08:05 - CONCLUSION: I suspect there are two small cortical calcification within the right kidney. No evidence of hydronephrosis or obstruction. Aries Castro MD Catheter Placement X-Ray 08/23/16 0000 Signed Impressions: Service Date/Time: Tuesday, August 23, 2016 09:59 - CONCLUSION: Uncomplicated line placement as above. Nick Perez MD Chest X-Ray 08/22/162018 Signed Impressions: Service Date/Time: Monday, August 22, 2016 20:31 - CONCLUSION: 1. Global cardiomegaly with probable early edematous changes with vascular indistinctness. Trace pleural fluid. Carlos A Spicer MD Laboratory Test 08/29/16 10:05 Hemoglobin 7.4 GM/DL Hematocrit 21.4 % Physical Examination HEENT: normocephalic; atraumatic; no jaundice. Throat is clear. NECK: Neck is supple, no JVD, no lymphadenopathy. CHEST: Chest is clear to auscultation and percussion. CARDIAC: Regular rate and rhythm with no murmur gallop or rubs. ABDOMEN: Soft, nondistended, nontender; no hepatosplenomegaly; bowel sounds are present in all four quadrants. EXTREMITIES: No clubbing, cyanosis, or edema. SKIN: Normal; no rash; no jaundice. STEREOTYPE CASTER: alert and oriented times three. (Julianaawi,Reinaldoawla SPECIAL INVESTIGATOR) Assessment and Plan Plan - GI bleed/melena- one episode of melena this morning, with history of recurrent GI bleed and under went EGD/colonoscopy, CE in [place] and no source was found according to . he was about to be discharged, but this morning he had a significant black tarry stools that was noted in the measuring hat in the toilet. He denies any other associated including nausea, vomiting, hematemesis, or abdomen pain. He reports loose stools today. hgb today is 7.4, base line is around 10. He takes aspirin, denies alcohol or NSAIDs. - Acute renal failure/hyperkalemia- Good response with HD - PMH of A-fib, CABG, pace maker per attending Plan: - EGD in am - Obtain consents - NPO mn - Monitor hh - Transfuse as needed - Notify Gi for active bleed - Cont. PPI - Obtain previous records - Supportive care - If above negative , consider colonoscopy - Patient seen and examined by Dr. alexis and myself and this note is written on his behalf. (Adrianna Lieberman) Physician Comments Seen and examined with KHAI, no active bleeding at this time. EGD planned for tomorrow. Monitor for bleeding. Notify GI if any active bleeding. Thank you ( Carlos Alexis MD) Adrianna Lieberman Aug 29, 2016 11:12 Carlos Alexis MD Aug 29, 2016 16:25
[2016-08-29] MEDS: guaiFENesin E.R. 600 MG TAB PO SCH ×2 (11:22→20:52)
[2016-08-29] MEDS: CARVEDILOL 12.5 MG TAB PO SCH ×2 (11:22→19:32)
[2016-08-29] MEDS: SERTRALINE HCL 100 MG TAB PO SCH (11:22)
[2016-08-29] MEDS: PANTOPRAZOLE SOD 40 MG DELAYED RELEASE TAB PO SCH (11:22)
[2016-08-29] MEDS: PRAVASTATIN SOD 40 MG TAB PO SCH (20:52)
--- NOTE | 2016-08-29 22:51 | HHI.PR ---
Subjective Remarks Follow up for GI bleed. Mr. Priest was discharged and was supposed to go to a SNF today. However, in the morning he had blood stool twice. Patient remains hemodynamically stable. Denies any chest pain, SOB, fever, chills. Objective Vitals Vital Signs Date Time Temp Pulse Resp B/P Pulse Ox O2 Delivery O2 Flow Rate FiO2 08/29/16 22:20 59 120/57 08/29/16 19:22 97 21 08/29/16 16:16 98.2 62 18 117/49 100 08/29/16 12:50 97 Nasal Cannula 2.00 08/29/16 12:00 98.5 59 18 103/53 100 08/29/16 09:00 97.7 60 18 130/55 97 08/29/16 08:00 97.4 60 18 121/56 100 08/29/16 04:00 97.5 60 17 128/69 99 08/29/16 00:00 97.7 60 19 146/66 97 I/O 08/28/16 08/28/16 08/28/16 08/29/16 08/29/16 08/29/16 07:00 15:00 23:00 07:00 15:00 23:00 Intake Total 240 ml 720 ml 480 ml 120 ml 520 ml Output Total 400 ml 225 ml 600 ml 800 ml 250 ml Balance -160 ml 495 ml -120 ml -680 ml 270 ml Intake Oral 240 ml 720 ml 480 ml 120 ml 520 ml Output Urine Total 400 ml 225 ml 600 ml 800 ml 250 ml # Voids 1 2 1 # Bowel Movements 0 0 2 Result Diagram: 08/29/16 1005 08/27/16 0850 Imaging Last Impressions Renal Ultrasound 08/23/16 0000 Signed Impressions: Service Date/Time: Tuesday, August 23, 2016 08:05 - CONCLUSION: I suspect there are two small cortical calcification within the right kidney. No evidence of hydronephrosis or obstruction. Aries Castro MD Catheter Placement X-Ray 08/23/16 0000 Signed Impressions: Service Date/Time: Tuesday, August 23, 2016 09:59 - CONCLUSION: Uncomplicated line placement as above. Nick Perez MD Chest X-Ray 08/22/16 2019 Signed Impressions: Service Date/Time: Javier, August 22, 2016 20:31 - CONCLUSION: 1. Global cardiomegaly with probable early edematous changes with vascular indistinctness. Trace pleural fluid. Carlos A Spicer MD Objective Remarks GENERAL: Alert, NAD. SKIN: Warm and dry. HEAD: Normocephalic. EYES: No scleral icterus. No injection or drainage. NECK: Supple, trachea midline. No JVD or lymphadenopathy. CARDIOVASCULAR: Regular rate and rhythm without murmurs, gallops, or rubs. RESPIRATORY: Breath sounds equal bilaterally. No accessory muscle use. GASTROINTESTINAL: Abdomen soft, non-tender, nondistended. MUSCULOSKELETAL: No cyanosis, or edema. BACK: Nontender without obvious deformity. No CVA tenderness. Procedures Vas-Cath A/P Problem List: (1) Acute renal failure ICD Code: N17.9 Status: Acute (2) Hyperkalemia ICD Code: E87.5 Status: Resolved (3) Generalized weakness ICD Code: R53.1 Status: Acute (4) CAD (coronary artery disease) ICD Code: I25.10 Status: Chronic (5) HTN (hypertension) ICD Code: I10 Status: Chronic (6) DM2 (diabetes mellitus, type 2) ICD Code: E11.9 Status: Chronic (7) COPD (chronic obstructive pulmonary disease) ICD Code: J44.9 Status: Chronic Assessment and Plan 81-year-old male with: - GI bleed - Consulted GI. EGD tomorrow. Hgb dropped from 9.9 on 08/26/2016 --> 7.4 on 08/29/2016. - Acute renal failure with severe hyperkalemia: On presentation. Acute renal failure resolving. - Nephrology followed this patient closely. Creatinine 5.06 on admission to 1.64 on 08/27/2016. - Hyperkalemia: Resolved. K+ 3.8 on 08/27/2016. - COPD with chronic respiratory failure on home oxygen: Not in exacerbation. Patient is oxygen dependent. Continue breathing treatments as needed. Continue Symbicort. Supplemental oxygen as needed to keep O2 sat > 90%. Diabetes mellitus type 2: Hold glipizide and metformin. Sliding scale insulin with Accu-Cheks. Hypertension: Continue antihypertensives. Coronary artery disease/atrial fibrillation: Continue aspirin and statin. Continue Coreg. Hold diltiazem. Patient has a pacemaker. Full code. SCDs. Problem Qualifiers (1) Acute renal failure: Qualified Code: N17.9 - Acute renal failure, unspecified acute renal failure type Carlos Fu DO Aug 29, 2016 22:51
[2016-08-29 22:58] LABS: REVIEW FLAG FINAL
[2016-08-29 23:02] LABS: HEMATOCRIT 18.7 % (39.0-51.0)
[2016-08-30] VITALS (13 sets, daily range): BP systolic 97–136; BP diastolic 50–66; PULSE 60; RESP 15–20; TEMP 96.4–97.6; O2SAT 93–100
[2016-08-30 05:53] LABS: HEMATOCRIT 22.7 % (39.0-51.0); REVIEW FLAG FINAL
[2016-08-30] MEDS: INSULIN ASPART SUPPLEMENTAL SCALE SQ SCH ×4 (06:14→19:38)
[2016-08-30] MEDS: RESP: ALBUTEROL 2.5 MG/IPRATROPIUM 0.5 MG NEB (SCH) NEB ×4 (07:47→20:42)
[2016-08-30] MEDS: PANTOPRAZOLE SOD 40 MG DELAYED RELEASE TAB PO SCH (09:17)
[2016-08-30] MEDS: FERROUS SULFATE 325 MG (65 MG ELEMENTAL IRON) TAB PO SCH ×2 (09:18→19:32)
[2016-08-30] MEDS: SERTRALINE HCL 100 MG TAB PO SCH (09:18)
[2016-08-30] MEDS: SODIUM CHLORIDE 0.9% FLUSH 5 ML FLUSH FLUSH SCH ×2 (09:18→19:31)
[2016-08-30] MEDS: TAMSULOSIN HCL 0.4 MG CAP PO SCH (09:18)
[2016-08-30] MEDS: CARVEDILOL 12.5 MG TAB PO SCH ×2 (09:18→19:31)
[2016-08-30] MEDS: ASPIRIN EC 81 MG TABEC PO SCH (09:18)
[2016-08-30] MEDS: guaiFENesin E.R. 600 MG TAB PO SCH ×2 (09:18→19:32)
[2016-08-30] MEDS ORDERED: PROPOFOL 200 MG/20 ML AMP IV ONE (11:04)
--- NOTE | 2016-08-30 14:41 | HHI.PR ---
Subjective Remarks Follow-up for GI bleed. Mr. Priest is still having bowel movement with blood. He required one unit of blood transfusion overnight. Patient denies any CP, SOB , fever, chills. Objective Vitals Vital Signs Date Time Temp Pulse Resp B/P Pulse Ox O2 Delivery O2 Flow Rate FiO2 08/30/16 11:44 60 16 93/48 100 08/30/16 11:39 60 18 89/48 100 08/30/16 11:22 60 16 88/47 100 08/30/16 11:17 60 16 85/45 100 08/30/16 11:12 Nasal Cannula 2 08/30/16 11:12 97.4 60 16 79/37 100 08/30/16 10:03 60 08/30/16 08:00 96.6 60 18 102/58 98 08/30/16 08:00 97.2 60 18 111/57 93 08/30/16 07:49 99 Nasal Cannula 1.00 08/30/16 04:35 96.4 60 20 136/63 100 08/30/16 00:45 97.1 60 20 111/53 98 08/30/16 00:30 97.0 60 18 97/50 98 08/30/16 00:00 97.0 60 15 97/50 98 08/29/16 22:20 59 120/57 08/29/16 20:00 60 08/29/16 19:22 97 21 08/29/16 16:16 98.2 62 18 117/49 100 I/O 08/29/16 08/29/16 08/29/16 08/30/16 08/30/16 08/30/16 07:00 15:00 23:00 07:00 15:00 23:00 Intake Total 120 ml 520 ml 480 ml 450 ml Output Total 800 ml 250 ml 400 ml Balance -680 ml 270 ml 80 ml 450 ml Intake Oral 120 ml 520 ml 480 ml IV Total 50 ml Packed Cells 400 ml Output Urine Total 800 ml 250 ml 400 ml # Voids 2 # Bowel Movements 0 2 1 1 Result Diagram: 08/30/16 0517 08/27/16 0850 Imaging Last Impressions Renal Ultrasound 08/23/16 0000 Signed Impressions: Service Date/Time: Tuesday, August 23, 2016 08:05 - CONCLUSION: I suspect there are two small cortical calcification within the right kidney. No evidence of hydronephrosis or obstruction. Aries Castro MD Catheter Placement X-Ray 08/23/16 0000 Signed Impressions: Service Date/Time: Tuesday, August 23, 2016 09:59 - CONCLUSION: Uncomplicated line placement as above. Nick Perez MD Chest X-Ray 08/22/16 2019 Signed Impressions: Service Date/Time: Monday, August 22, 2016 20:31 - CONCLUSION: 1. Global cardiomegaly with probable early edematous changes with vascular indistinctness. Trace pleural fluid. Carlos A Spicer MD Objective Remarks GENERAL: Alert, NAD. SKIN: Warm and dry. HEAD: Normocephalic. EYES: No scleral icterus. No injection or drainage. NECK: Supple, trachea midline. No JVD or lymphadenopathy. CARDIOVASCULAR: Regular rate and rhythm without murmurs, gallops, or rubs. RESPIRATORY: Breath sounds equal bilaterally. No accessory muscle use. GASTROINTESTINAL: Abdomen soft, non-tender, nondistended. MUSCULOSKELETAL: No cyanosis, or edema. BACK: Nontender without obvious deformity. No CVA tenderness. Procedures Vas-Cath A/P Problem List: (1) Acute renal failure ICD Code: N17.9 Status: Acute (2) Hyperkalemia ICD Code: E87.5 Status: Resolved (3) Generalized weakness ICD Code: R53.1 Status: Acute (4) CAD (coronary artery disease) ICD Code: I25.10 Status: Chronic (5) HTN (hypertension) ICD Code: I10 Status: Chronic (6) DM2 (diabetes mellitus, type 2) ICD Code: E11.9 Status: Chronic (7) COPD (chronic obstructive pulmonary disease) ICD Code: J44.9 Status: Chronic Assessment and Plan 81-year-old male with: - GI bleed - Consulted GI. EGD tomorrow. Hgb dropped from 9.9 on 08/26/2016 --> 7.4 on 08/29/2016. - Required blood transfusion one unit. Will check H&H this afternoon and in the AM. - Discussed with RN, GI at length. Even though patient recently had Colonoscopy recently, we feel that it would be in the best interest of this patient to undergo another Colonoscopy study during this admission. - If negative, we can discharge him to SNF on 08/31/2016 with a follow up with GI within 7-10 days for capsule endoscopy. - GI will start bowel prep for possible Colonoscopy in the AM - Acute renal failure with severe hyperkalemia: On presentation. Acute renal failure resolving. - Nephrology followed this patient closely. Creatinine 5.06 on admission to 1.64 on 08/27/2016. - Hyperkalemia: Resolved. K+ 3.8 on 08/27/2016. - COPD with chronic respiratory failure on home oxygen: Not in exacerbation. Patient is oxygen dependent. Continue breathing treatments as needed. Continue Symbicort. Supplemental oxygen as needed to keep O2 sat > 90%. Diabetes mellitus type 2: Hold glipizide and metformin. Sliding scale insulin with Accu-Cheks. Hypertension: Continue antihypertensives. Coronary artery disease/atrial fibrillation: Continue aspirin and statin. Continue Coreg. Hold diltiazem. Patient has a pacemaker. Full code. SCDs. Problem Qualifiers (1) Acute renal failure: Qualified Code: N17.9 - Acute renal failure, unspecified acute renal failure type Carlos Fu DO Aug 30, 2016 2:41 pm
[2016-08-30 16:16] LABS: REVIEW FLAG FINAL
[2016-08-30 16:18] LABS: HEMATOCRIT 20.6 % (39.0-51.0)
[2016-08-30] MEDS ORDERED: SODIUM CHLOR 0.9% 250 ML INJ 250 ML IV ONE (16:30)
[2016-08-30] MEDS ORDERED: ACETAMINOPHEN 325 MG TAB PO PRN (17:00)
[2016-08-30] MEDS ORDERED: PEG (High)/E-LYTE SOLN 4000 ML BTL PO ONE (17:00)
[2016-08-30] MEDS ORDERED: diphenhydrAMINE HCL 25 MG CAP PO PRN (17:00)
[2016-08-30] MEDS: PRAVASTATIN SOD 40 MG TAB PO SCH (19:32)
[2016-08-31] VITALS (13 sets, daily range): BP systolic 132–161; BP diastolic 62–70; PULSE 59–63; RESP 16–26; TEMP 96.9–98; O2SAT 95–100
[2016-08-31 01:53] LABS: HEMATOCRIT 21.9 % (39.0-51.0); REVIEW FLAG FINAL
[2016-08-31 05:13] LABS: HEMATOCRIT 21.3 % (39.0-51.0); REVIEW FLAG FINAL
[2016-08-31] MEDS: INSULIN ASPART SUPPLEMENTAL SCALE SQ SCH ×3 (07:00→19:59)
[2016-08-31] MEDS: RESP: ALBUTEROL 2.5 MG/IPRATROPIUM 0.5 MG NEB (SCH) NEB ×4 (07:39→21:06)
[2016-08-31] MEDS: SODIUM CHLORIDE 0.9% FLUSH 5 ML FLUSH FLUSH SCH ×2 (08:46→20:01)
[2016-08-31] MEDS ORDERED: PROPOFOL 200 MG/20 ML AMP IV ONE (10:31)
--- NOTE | 2016-08-31 13:07 | HHI.PR ---
Subjective Remarks Follow-up for GI bleed. Patient is doing well. However he reports a large bloody bowel movement yesterday. Denies any chest pain, shortness of breath, fever or chills. Objective Vitals Vital Signs Date Time Temp Pulse Resp B/P Pulse Ox O2 Delivery O2 Flow Rate FiO2 08/31/16 11:10 72 18 127/55 100 08/31/16 10:55 59 18 113/59 100 08/31/16 10:46 98.2 60 18 83/45 100 08/31/16 10:00 97.4 59 16 141/62 98 08/31/16 09:32 60 08/31/16 08:00 97.4 59 16 141/62 98 08/31/16 07:41 96 Nasal Cannula 2.00 08/31/16 04:00 96.9 60 16 158/68 95 08/31/16 00:57 60 22 161/70 100 08/30/16 20:42 96 Nasal Cannula 1.00 08/30/16 20:00 60 08/30/16 19:28 96.8 60 18 106/53 99 08/30/16 17:36 97.6 60 18 117/56 97 08/30/16 16:00 97.3 60 18 97/66 100 I/O 08/30/16 08/30/16 08/30/16 08/31/16 08/31/16 08/31/16 07:00 15:00 23:00 07:00 15:00 23:00 Intake Total 450 ml 1000 ml 300 ml Balance 450 ml 1000 ml 300 ml Intake Oral 1000 ml 0 ml IV Total 50 ml Packed Cells 400 ml Other 300 ml # Voids 2 3 2 1 # Bowel Movements 1 3 2 1 Result Diagram: 08/31/16 0455 08/27/16 0850 Imaging Last Impressions Renal Ultrasound 08/23/16 0000 Signed Impressions: Service Date/Time: Tuesday, August 23, 2016 08:05 - CONCLUSION: I suspect there are two small cortical calcification within the right kidney. No evidence of hydronephrosis or obstruction. Aries Castro MD Catheter Placement X-Ray 08/23/16 0000 Signed Impressions: Service Date/Time: Tuesday, August 23, 2016 09:59 - CONCLUSION: Uncomplicated line placement as above. Nick Perez MD Chest X-Ray 08/22/162018 Signed Impressions: Service Date/Time: Monday, August 22, 2016 20:31 - CONCLUSION: 1. Global cardiomegaly with probable early edematous changes with vascular indistinctness. Trace pleural fluid. Carlos A Spicer MD Objective Remarks GENERAL: Alert, NAD. SKIN: Warm and dry. HEAD: Normocephalic. EYES: No scleral icterus. No injection or drainage. NECK: Supple, trachea midline. No JVD or lymphadenopathy. CARDIOVASCULAR: Regular rate and rhythm without murmurs, gallops, or rubs. RESPIRATORY: Breath sounds equal bilaterally. No accessory muscle use. GASTROINTESTINAL: Abdomen soft, non-tender, nondistended. MUSCULOSKELETAL: No cyanosis, or edema. BACK: Nontender without obvious deformity. No CVA tenderness. Procedures Vas-Cath, EGD, colonoscopy A/P Problem List: (1) Acute renal failure ICD Code: N17.9 Status: Acute (2) Hyperkalemia ICD Code: E87.5 Status: Resolved (3) Generalized weakness ICD Code: R53.1 Status: Acute (4) CAD (coronary artery disease) ICD Code: I25.10 Status: Chronic (5) HTN (hypertension) ICD Code: I10 Status: Chronic (6) DM2 (diabetes mellitus, type 2) ICD Code: E11.9 Status: Chronic (7) COPD (chronic obstructive pulmonary disease) ICD Code: J44.9 Status: Chronic Assessment and Plan 81-year-old male with: - GI bleed - Consulted GI. EGD tomorrow. Hgb dropped from 9.9 on 08/26/2016 --> 7.4 on 08/29/2016. - Required two units of PRBCs. Patient underwent Colonoscopy. Discussed with GI attending who reported significant amount of blood in the colon. - GI suspects bleeding from diverticulosis. - Due to significant bleeding, will transfer patient to ICU for closer observation. GI ordered STAT bleeding scan. - Serial H&H. Patient is currently hemodynamically stable. No acute need for Seo Strategist consultation. - Acute renal failure with severe hyperkalemia: On presentation. Acute renal failure resolving. - Nephrology followed this patient closely. Creatinine 5.06 on admission to 1.64 on 08/27/2016. - Hyperkalemia: Resolved. K+ 3.8 on 08/27/2016. - COPD with chronic respiratory failure on home oxygen: Not in exacerbation. Patient is oxygen dependent. Continue breathing treatments as needed. Continue Symbicort. Supplemental oxygen as needed to keep O2 sat > 90%. Diabetes mellitus type 2: Hold glipizide and metformin. Sliding scale insulin with Accu-Cheks. Hypertension: Continue antihypertensives. Coronary artery disease/atrial fibrillation: Continue aspirin and statin. Continue Coreg. Hold diltiazem. Patient has a pacemaker. Full code. SCDs. Problem Qualifiers (1) Acute renal failure: Qualified Code: N17.9 - Acute renal failure, unspecified acute renal failure type Carlos Fu DO Aug 31, 2016 1:07 pm
--- NOTE | 2016-08-31 14:44 | RADRPT ---
EXAM DATE/TIME: 08/31/2016 11:36 [facility] COMPARISON: No previous studies available for comparison. INDICATIONS : Blood in stools. DOSE: 21.0 mCi Tc99m Ultratag labeled red blood cells IV IMAGIN hrs MEDICAL HISTORY : Renal failure, chrnoic. Diabetes mellitus type 2. Chronic obstructive pulmonary disease. SURGICAL HISTORY : Pacemaker. ENCOUNTER: Initial ACUITY: 1 day PAIN SCALE: 0/10 LOCATION: Abdomen TECHNIQUE: Following the modified in vitro labeling of autologous red cells, dynamic continuous i mages were acquired for the specified interval. FINDINGS: BIODISTRIBUTION: There is a very good labeling of red cells without significant uptake in the gas tric wall. There is good delineation of the blood pool of the spleen and abdominal vessels. BLEEDING: No episodes of active GI bleeding are observed during specified interval of continuous observation. CONCLUSION: Negative for site of gastrointestinal hemorrhage. Russell Marie MD FACR on August 31, 2016 at 14:42 Board Certified Radiologist. This report was verified electronically.
[2016-08-31 15:15] LABS: REVIEW FLAG FINAL
[2016-08-31 15:17] LABS: HEMATOCRIT 19.4 % (39.0-51.0)
[2016-08-31] MEDS: PRAVASTATIN SOD 40 MG TAB PO SCH (20:00)
[2016-08-31] MEDS: CARVEDILOL 12.5 MG TAB PO SCH (20:00)
[2016-08-31] MEDS: FERROUS SULFATE 325 MG (65 MG ELEMENTAL IRON) TAB PO SCH (20:00)
[2016-08-31] MEDS: guaiFENesin E.R. 600 MG TAB PO SCH (20:00)
[2016-09-01] VITALS (16 sets, daily range): BP systolic 100–149; BP diastolic 53–64; PULSE 58–60; RESP 18–27; TEMP 97.4–98.2; O2SAT 95–100
[2016-09-01 00:53] LABS: REVIEW FLAG FINAL
[2016-09-01 00:55] LABS: HEMATOCRIT 17.7 % (39.0-51.0)
[2016-09-01] MEDS ORDERED: SODIUM CHLOR 0.9% 250 ML INJ 250 ML IV ONE (01:15)
[2016-09-01] MEDS ORDERED: FUROSEMIDE 20 MG/2 ML VIAL IV ONE (01:15)
[2016-09-01] MEDS: INSULIN ASPART SUPPLEMENTAL SCALE SQ SCH ×4 (07:00→19:42)
[2016-09-01 08:45] LABS: HEMATOCRIT 24.4 % (39.0-51.0); REVIEW FLAG FINAL
[2016-09-01] MEDS: SERTRALINE HCL 100 MG TAB PO SCH ×2 (09:00→09:26)
[2016-09-01] MEDS: TAMSULOSIN HCL 0.4 MG CAP PO SCH ×2 (09:00→09:26)
[2016-09-01] MEDS: PANTOPRAZOLE SOD 40 MG DELAYED RELEASE TAB PO SCH ×2 (09:00→09:26)
[2016-09-01 09:10] LABS: BICARBONATE 29.1 MEQ/L (21.0-32.0); POTASSIUM 3.5 MEQ/L (3.5-5.1)
[2016-09-01] MEDS: guaiFENesin E.R. 600 MG TAB PO SCH ×2 (09:26→19:42)
[2016-09-01] MEDS: CARVEDILOL 12.5 MG TAB PO SCH ×2 (09:26→19:42)
[2016-09-01] MEDS: SODIUM CHLORIDE 0.9% FLUSH 5 ML FLUSH FLUSH SCH ×2 (09:26→19:43)
[2016-09-01] MEDS: FERROUS SULFATE 325 MG (65 MG ELEMENTAL IRON) TAB PO SCH ×2 (09:26→19:42)
--- NOTE | 2016-09-01 12:13 | HHI.NPPN ---
Subjective General Problems: Anemia, Edema, Hypotension Renal Failure: Acute Additional Remarks Patient is alert, now [place] [facility] Review of Systems General Constitutional: Fatigue Objective Data Data 08/31/16 09/01/16 19:00 07:00 Intake Total 720 ml 1485 ml Output Total 100 ml 201 ml Balance 620 ml 1284 ml Intake Oral 120 ml 850 ml IV Total 100 ml Packed Cells 300 ml 535 ml Other 300 ml Output Urine Total 100 ml 200 ml Stool Total 1 ml # Voids 1 # Bowel Movements 2 1 Vital Signs Date Time Temp Pulse Resp B/P Pulse Ox O2 Delivery O2 Flow Rate FiO2 09/01/16 06:00 59 09/01/16 04:00 97.9 60 24 105/55 100 09/01/16 04:00 60 09/01/16 03:30 97.8 60 26 100/55 100 09/01/16 02:00 60 09/01/16 01:45 97.8 60 23 103/53 100 09/01/16 00:00 98.2 59 27 105/55 100 09/01/16 00:00 60 08/31/16 22:00 59 08/31/16 21:08 99 Nasal Cannula 1.00 08/31/16 20:00 59 08/31/16 20:00 97.6 59 26 154/70 100 08/31/16 18:00 60 08/31/16 16:00 97.6 60 24 144/67 100 08/31/16 16:00 59 08/31/16 15:05 98.0 63 22 132/63 100 08/31/16 15:00 63 -: 09/01/16 0720 09/01/16 0720 Physical Exam General Appearance: No Acute Distress, Comfortable Neck Neck Exam: Neck Supple Pulmonary Resp Exam: Clear Bilaterally, Breath Sounds Equal Cardiology CV Exam: Regular, Normal Sinus Rhythm Gastrointestinal/Abdomen GI Exam: Soft, Non-Tender, Bowel Sounds Present Extremeties Extremities Exam: No Edema Neurologic Neuro Exam: Alert, Awake Psychiatric Psych Exam: Appropriate Responses Assessment/Plan Problem List: (1) Acute renal failure Plan: Patient has gradual improvement in the Creatinine. Now transferred [place] [facility] [place] Hgb,. dropped and has low BP. GI following , transfuse as needed. Avoid Nephrotoxins, follow urine out put and BMP. (2) Hyperkalemia Plan: Resolved (3) DM2 (diabetes mellitus, type 2) Plan: Continue to monitor (4) HTN (hypertension) Plan: Follow blood pressure (5) CAD (coronary artery disease) Plan: STABLE (6) COPD (chronic obstructive pulmonary disease) Plan: stable Problem Qualifiers (1) Acute renal failure: Qualified Code: N17.9 - Acute renal failure, unspecified acute renal failure type Remedios Queen MD Sep 01, 2016 12:13
--- NOTE | 2016-09-01 13:46 | HHI.PR ---
Subjective Remarks Follow up for GI bleed. Mr. Priest continues to have loose bowel movements. His hemoglobin dropped to 6.1 and required multiple blood transfusions. Colorectal surgery was consulted by GI. Patient denies any chest pain, shortness of breath, fever or chills. Objective Vitals Vital Signs Date Time Temp Pulse Resp B/P Pulse Ox O2 Delivery O2 Flow Rate FiO2 09/01/16 12:36 100 Nasal Cannula 2.00 09/01/16 08:00 97.4 60 20 149/64 100 09/01/16 08:00 60 09/01/16 06:00 59 09/01/16 04:00 97.9 60 24 105/55 100 09/01/16 04:00 60 09/01/16 03:30 97.8 60 26 100/55 100 09/01/16 02:00 60 09/01/16 01:45 97.8 60 23 103/53 100 09/01/16 00:00 98.2 59 27 105/55 100 09/01/16 00:00 60 08/31/16 22:00 59 08/31/16 21:08 99 Nasal Cannula 1.00 08/31/16 20:00 59 08/31/16 20:00 97.6 59 26 154/70 100 08/31/16 18:00 60 08/31/16 16:00 97.6 60 24 144/67 100 08/31/16 16:00 59 08/31/16 15:05 98.0 63 22 132/63 100 08/31/16 15:00 63 I/O 08/31/16 08/31/16 08/31/16 09/01/16 09/01/16 09/01/16 07:00 15:00 23:00 07:00 15:00 23:00 Intake Total 300 ml 1020 ml 885 ml Output Total 300 ml 1 ml Balance 300 ml 720 ml 884 ml Intake Oral 0 ml 720 ml 250 ml IV Total 100 ml Packed Cells 300 ml 535 ml Other 300 ml Output Urine Total 300 ml Stool Total 1 ml # Voids 1 # Bowel Movements 1 2 Result Diagram: 09/01/16 0720 09/01/16 0720 Imaging Last Impressions GI Bleed Scan Nuclear Medicine 08/31/16 0000 Signed Impressions: Service Date/Time: Wednesday, August 31, 2016 11:36 - CONCLUSION: Negative for site of gastrointestinal hemorrhage. Russell Marie MD FACR Renal Ultrasound 08/23/16 0000 Signed Impressions: Service Date/Time: Tuesday, August 23, 2016 08:05 - CONCLUSION: I suspect there are two small cortical calcification within the right kidney. No evidence of hydronephrosis or obstruction. Aries Castro MD Catheter Placement X-Ray 08/23/16 0000 Signed Impressions: Service Date/Time: Tuesday, August 23, 2016 09:59 - CONCLUSION: Uncomplicated line placement as above. Nick Perez MD Chest X-Ray 08/22/162018 Signed Impressions: Service Date/Time: Monday, August 22, 2016 20:31 - CONCLUSION: 1. Global cardiomegaly with probable early edematous changes with vascular indistinctness. Trace pleural fluid. Carlos A Spicer MD Objective Remarks GENERAL: Alert, NAD. SKIN: Warm and dry. HEAD: Normocephalic. EYES: No scleral icterus. No injection or drainage. NECK: Supple, trachea midline. No JVD or lymphadenopathy. CARDIOVASCULAR: Regular rate and rhythm without murmurs, gallops, or rubs. RESPIRATORY: Breath sounds equal bilaterally. No accessory muscle use. GASTROINTESTINAL: Abdomen soft, non-tender, nondistended. MUSCULOSKELETAL: No cyanosis, or edema. BACK: Nontender without obvious deformity. No CVA tenderness. Procedures Vas-Cath, EGD, colonoscopy A/P Problem List: (1) Acute renal failure ICD Code: N17.9 Status: Acute (2) Hyperkalemia ICD Code: E87.5 Status: Resolved (3) Generalized weakness ICD Code: R53.1 Status: Acute (4) CAD (coronary artery disease) ICD Code: I25.10 Status: Chronic (5) HTN (hypertension) ICD Code: I10 Status: Chronic (6) DM2 (diabetes mellitus, type 2) ICD Code: E11.9 Status: Chronic (7) COPD (chronic obstructive pulmonary disease) ICD Code: J44.9 Status: Chronic Assessment and Plan 81-year-old male with: - GI bleed - Consulted GI. EGD tomorrow. Hgb continues to drop. - Required multiple blood transfusions. Patient underwent Colonoscopy on 2016. Discussed with GI attending who reported significant amount of blood in the colon. - GI suspects bleeding from diverticulosis. - Due to significant bleeding, Patient was transferred to ICU for closer observation. STAT bleeding scan did not identify any bleeding source. - Serial H&H. Patient is currently hemodynamically stable. Colorectal surgery is following. - After two units of PRBCs overnight, Hgb 6.1 --> 8.2. - Continue PPI. - Acute renal failure with severe hyperkalemia: On presentation. Acute renal failure resolving. - Nephrology followed this patient closely. Creatinine 5.06 on admission to 1.40 on 09/01/2016. - Hyperkalemia: Resolved. K+ 3.5 on 09/01/2016. - COPD with chronic respiratory failure on home oxygen: Not in exacerbation. Patient is oxygen dependent. Continue breathing treatments as needed. Continue Symbicort. Supplemental oxygen as needed to keep O2 sat > 90%. Diabetes mellitus type 2: Hold glipizide and metformin. Sliding scale insulin with Accu-Cheks. Hypertension: Continue antihypertensives. Coronary artery disease/atrial fibrillation: Continue statin. Continue Coreg. Patient has a pacemaker. No aspirin for now. Full code. SCDs. Problem Qualifiers (1) Acute renal failure: Qualified Code: N17.9 - Acute renal failure, unspecified acute renal failure type Carlos Fu DO Sep 01, 2016 1:46 pm
--- NOTE | 2016-09-01 15:31 | HHI.GIFU ---
Subjective Remarks patient is resting in bed continue to have dark maroon bloody stools, denies nausea, vomiting or abdomen pain (Adrianna Lieberman) Objective Vitals I&O Vital Signs Date Time Temp Pulse Resp B/P Pulse Ox O2 Delivery O2 Flow Rate FiO2 09/01/16 14:00 59 09/01/16 12:36 100 Nasal Cannula 2.00 09/01/16 12:00 60 09/01/16 12:00 97.6 60 18 127/64 98 09/01/16 10:00 58 09/01/16 08:00 97.4 60 20 149/64 100 09/01/16 08:00 60 09/01/16 06:00 59 09/01/16 04:00 97.9 60 24 105/55 100 09/01/16 04:00 60 09/01/16 03:30 97.8 60 26 100/55 100 09/01/16 02:00 60 09/01/16 01:45 97.8 60 23 103/53 100 09/01/16 00:00 98.2 59 27 105/55 100 09/01/16 00:00 60 08/31/16 22:00 59 08/31/16 21:08 99 Nasal Cannula 1.00 08/31/16 20:00 59 08/31/16 20:00 97.6 59 26 154/70 100 08/31/16 18:00 60 08/31/16 16:00 97.6 60 24 144/67 100 08/31/16 16:00 59 I/O 08/31/16 08/31/16 08/31/16 09/01/16 09/01/16 09/01/16 07:00 15:00 23:00 07:00 15:00 23:00 Intake Total 300 ml 1020 ml 885 ml 420 ml Output Total 300 ml 1 ml 400 ml Balance 300 ml 720 ml 884 ml 20 ml Intake Oral 0 ml 720 ml 250 ml 420 ml IV Total 100 ml Packed Cells 300 ml 535 ml Other 300 ml Output Urine Total 300 ml 400 ml Stool Total 1 ml # Voids 1 2 # Bowel Movements 1 2 2 Laboratory Laboratory Tests Test 09/01/16 09/01/16 09/01/16 09/01/16 00:28 01:59 07:20 10:34 Hemoglobin 6.1 8.2 Hematocrit 17.7 24.4 Blood Type O POSITIVE O POSITIVE Crossmatch Leukocyte-Reduced Leukocyte-Reduced Red Blood Red Blood Cells Cells Blood Bank Comment Sodium Level 143 Potassium Level 3.5 Chloride Level 106 Carbon Dioxide Level 29.1 Anion Gap 8 Blood Urea Nitrogen 44 Creatinine 1.40 Estimat Glomerular Filtration 49 Rate Random Glucose 143 Calcium Level 8.1 Antibody Screen NEGATIVE Date/Time Procedure Status Source Growth 08/31/16 05:00 Stool Occult Blood (STEFANIA) - Final Complete Stool Stool HEMOCCULT POSITIVE Imaging Last Impressions GI Bleed Scan Nuclear Medicine 08/31/16 0000 Signed Impressions: Service Date/Time: Wednesday, August 31, 2016 11:36 - CONCLUSION: Negative for site of gastrointestinal hemorrhage. Russell Marie MD FACR Renal Ultrasound 08/23/16 Signed Impressions: Service Date/Time: Tuesday, August 23, 2016 08:05 - CONCLUSION: I suspect there are two small cortical calcification within the right kidney. No evidence of hydronephrosis or obstruction. Aries Castor MD Catheter Placement X-Ray 08/23/16 Signed Impressions: Service Date/Time: Tuesday, August 23, 2016 09:59 - CONCLUSION: Uncomplicated line placement as above. Nick Perez MD Chest X-Ray 08/22/162018 Signed Impressions: Service Date/Time: Monday, August 22, 2016 20:31 - CONCLUSION: 1. Global cardiomegaly with probable early edematous changes with vascular indistinctness. Trace pleural fluid. Carlos A Spicer MD Physical Exam HEENT: normocephalic; atraumatic; no jaundice. Throat is clear. NECK: Neck is supple, no JVD, no lymphadenopathy. CHEST: Chest is clear to auscultation and percussion. CARDIAC: Regular rate and rhythm with no murmur gallop or rubs. ABDOMEN: Soft, nondistended, nontender; no hepatosplenomegaly; bowel sounds are present in all four quadrants. EXTREMITIES: No clubbing, cyanosis, or edema. SKIN: dssng to right foot PHYSICS TECHNICAL OFFICER: alert and oriented times three. (Adrianna Lieberman STUMMEL SELECTOR) Assessment and Plan Plan - GI bleed/melena/maroon bloody stools- S/P EGD on (---->Erythematous gastritis, bx showed chronic gastritis. s/p Flex/sig ( 08/31/16)----> diverticulosis, fresh blood in colon, S/P bleeding scan which is negative. He continue to have bloody stools, hgb 8.2 with history of recurrent GI bleed and under went EGD/colonoscopy, CE in [place] and no source was found according to . he was about to be discharged, but this morning he had a significant black tarry stools that was noted in the measuring hat in the toilet. He takes aspirin , denies alcohol or NSAIDs. - Acute renal failure/hyperkalemia- Good response with HD - PMH of A-fib, CABG, pace maker per attending Plan: - SUSAN - H&H - Repeat colonoscopy next week - Monitor hh - Transfuse as needed - Notify Gi for active bleed - Cont. PPI - Supportive care - Patient seen and examined by Dr. alexis and myself and this note is written on his behalf. (Adrianna Lieberman) Physician Comments Seen and examined with STUMMEL SELECTOR< some melena today but no active bleeding. Bleeding scan -ve yestrday. Continue to monitor labs. Repeat colonoscopy next week. ( Carlos Alexis MD) Adrianna Lieberman Sep 01, 2016 15:31 Carlos Alexis MD Sep 01, 2016 17:09
[2016-09-01 17:40] LABS: HEMATOCRIT 24.1 % (39.0-51.0); REVIEW FLAG FINAL
[2016-09-01] MEDS: PRAVASTATIN SOD 40 MG TAB PO SCH (19:42)
--- NOTE | 2016-09-01 23:56 | HHI.PR ---
Subjective Remarks C/R surg events reviewed No further bleeding appetite good Objective - Vital Signs Date Time Temp Pulse Resp B/P Pulse Ox O2 Delivery O2 Flow Rate FiO2 09/01/16 22:00 60 09/01/16 21:32 99 Nasal Cannula 2.00 09/01/16 20:00 97.7 26 144/60 08/29/16 19:22 21 Result Diagram: 09/01/16 1732 09/01/16 0720 Objective Remarks PE alert Abd - soft, non-tender, no BRB A/P Assessment and Plan Imp: stable bleeding scan negative Hgb up after tx PRBC José Miguel Domingo MD Sep 01, 2016 23:56
[2016-09-02] VITALS (14 sets, daily range): BP systolic 114–152; BP diastolic 58–86; PULSE 55–62; RESP 12–32; TEMP 97.6–98.3; O2SAT 95–100
[2016-09-02] MEDS: INSULIN ASPART SUPPLEMENTAL SCALE SQ SCH ×4 (06:33→21:00)
[2016-09-02 08:14] LABS: AUTOMATED NEUTROPHIL # 5.9 TH/MM3 (1.8-7.7); BASOPHIL % 0.3 % (0.0-2.0); EOSINOPHIL # 0.3 TH/MM3 (0-0.4); EOSINOPHIL % 3.6 % (0.0-4.0); LYMPH % 12.4 % (9.0-44.0); MEAN CELL VOLUME 85.4 FL (80.0-100.0); MEAN CORPUSCULAR HEMOGLOBIN 29.2 PG (27.0-34.0); MEAN CORPUSCULAR HGB CONC 34.2 % (32.0-36.0); NEUT % 77.7 % (16.0-70.0); PLATELET COUNT 173 TH/MM3 (150-450); RED BLOOD COUNT 2.37 MIL/MM3 (4.50-5.90); RED CELL DISTRIBUTION WIDTH 17.2 % (11.6-17.2); WHITE BLOOD COUNT 7.7 TH/MM3 (4.0-11.0)
[2016-09-02 08:22] LABS: HEMO FLAGS AUTO DIFF
[2016-09-02 08:24] LABS: HEMATOCRIT 20.2 % (39.0-51.0)
[2016-09-02 08:49] LABS: BICARBONATE 27.8 MEQ/L (21.0-32.0); MAGNESIUM 1.8 MG/DL (1.5-2.5); POTASSIUM 3.6 MEQ/L (3.5-5.1)
[2016-09-02] MEDS: SERTRALINE HCL 100 MG TAB PO SCH (09:00)
[2016-09-02 09:31] LABS: PLATELET ESTIMATE SMEAR NORMAL (NORMAL); PLATELET MORPHOLOGY NORMAL (NORMAL); SCAN/DIFF AUTO DIFF CONFIRMED
[2016-09-02] MEDS ORDERED: FUROSEMIDE 40 MG/4 ML VIAL IV PUSH ONE (10:00)
[2016-09-02] MEDS: FERROUS SULFATE 325 MG (65 MG ELEMENTAL IRON) TAB PO SCH ×2 (10:23→21:41)
[2016-09-02] MEDS: PANTOPRAZOLE SOD 40 MG DELAYED RELEASE TAB PO SCH (10:23)
[2016-09-02] MEDS: CARVEDILOL 12.5 MG TAB PO SCH ×2 (10:23→21:41)
[2016-09-02] MEDS: TAMSULOSIN HCL 0.4 MG CAP PO SCH (10:24)
[2016-09-02] MEDS: guaiFENesin E.R. 600 MG TAB PO SCH ×2 (10:24→21:41)
[2016-09-02] MEDS: SODIUM CHLORIDE 0.9% FLUSH 5 ML FLUSH FLUSH SCH ×2 (10:25→21:44)
--- NOTE | 2016-09-02 11:03 | HHI.NPPN ---
Subjective General Problems: Anemia, Edema, Hypotension Renal Failure: Acute Additional Remarks Patient is alert, no SOB, no abd. pain, getting blood transfusion. Review of Systems General Constitutional: Fatigue Objective Data Data 09/01/16 09/02/16 19:00 07:00 Intake Total 420 ml 960 ml Output Total 400 ml 1050 ml Balance 20 ml -90 ml Intake Oral 420 ml 960 ml Output Urine Total 400 ml 1050 ml Stool Total 0 ml # Voids 2 # Bowel Movements 2 Vital Signs Date Time Temp Pulse Resp B/P Pulse Ox O2 Delivery O2 Flow Rate FiO2 09/02/16 06:00 60 09/02/16 04:00 97.6 60 24 123/58 100 09/02/16 04:00 60 09/02/16 02:00 60 09/02/16 00:00 97.9 60 32 114/71 100 09/02/16 00:00 60 09/01/16 22:00 60 09/01/16 21:32 99 Nasal Cannula 2.00 09/01/16 20:00 97.7 59 26 144/60 100 09/01/16 20:00 60 09/01/16 18:00 60 09/01/16 16:00 97.5 60 20 117/58 95 09/01/16 16:00 59 09/01/16 14:00 59 09/01/16 12:36 100 Nasal Cannula 2.00 09/01/16 12:00 60 09/01/16 12:00 97.6 60 18 127/64 98 -: 09/02/16 0745 09/02/16 0745 Physical Exam General Appearance: No Acute Distress, Comfortable Neck Neck Exam: Neck Supple Pulmonary Resp Exam: Clear Bilaterally, Breath Sounds Equal Cardiology CV Exam: Regular, Normal Sinus Rhythm Gastrointestinal/Abdomen GI Exam: Soft, Non-Tender, Bowel Sounds Present Extremeties Extremities Exam: No Edema Neurologic Neuro Exam: Alert, Awake Psychiatric Psych Exam: Appropriate Responses Assessment/Plan Problem List: (1) Acute renal failure Plan: Patient has gradual improvement in the Creatinine. Now transferred to [facility] as Hgb,. dropped and has low BP. GI following , transfuse as needed. Avoid Nephrotoxins, Creatinine continue to improve. Now it is 1.1. I will sign off from Nephrology, please call again if needed. (2) Hyperkalemia Plan: Resolved (3) DM2 (diabetes mellitus, type 2) Plan: Continue to monitor (4) HTN (hypertension) Plan: Follow blood pressure (5) CAD (coronary artery disease) Plan: STABLE (6) COPD (chronic obstructive pulmonary disease) Plan: stable Problem Qualifiers (1) Acute renal failure: Qualified Code: N17.9 - Acute renal failure, unspecified acute renal failure type Remedios Queen MD Sep 02, 2016 11:03
--- NOTE | 2016-09-02 11:36 | HHI.GIFU ---
Subjective Remarks Patient resting in bed, Hgb has dropped today to 6.9, no obvious bleeding reported per nurse, he is getting blood transfusion (Adrianna Lieberman) Objective Vitals I&O Vital Signs Date Time Temp Pulse Resp B/P Pulse Ox O2 Delivery O2 Flow Rate FiO2 09/02/16 06:00 60 09/02/16 04:00 97.6 60 24 123/58 100 09/02/16 04:00 60 09/02/16 02:00 60 09/02/16 00:00 97.9 60 32 114/71 100 09/02/16 00:00 60 09/01/16 22:00 60 09/01/16 21:32 99 Nasal Cannula 2.00 09/01/16 20:00 97.7 59 26 144/60 100 09/01/16 20:00 60 09/01/16 18:00 60 09/01/16 16:00 97.5 60 20 117/58 95 09/01/16 16:00 59 09/01/16 14:00 59 09/01/16 12:36 100 Nasal Cannula 2.00 09/01/16 12:00 60 09/01/16 12:00 97.6 60 18 127/64 98 I/O 09/01/16 09/01/16 09/01/16 09/02/16 09/02/16 09/02/16 07:00 15:00 23:00 07:00 15:00 23:00 Intake Total 885 ml 420 ml 480 ml 480 ml Output Total 1 ml 400 ml 750 ml 300 ml Balance 884 ml 20 ml -270 ml 180 ml Intake Oral 250 ml 420 ml 480 ml 480 ml IV Total 100 ml Packed Cells 535 ml Output Urine Total 400 ml 750 ml 300 ml Stool Total 1 ml 0 ml # Voids 2 # Bowel Movements 2 Laboratory Laboratory Tests Test 09/01/16 09/02/16 17:32 07:45 Hemoglobin 8.2 6.9 Hematocrit 24.1 20.2 White Blood Count 7.7 Red Blood Count 2.37 Mean Corpuscular Volume 85.4 Mean Corpuscular Hemoglobin 29.2 Mean Corpuscular Hemoglobin 34.2 Concent Red Cell Distribution Width 17.2 Platelet Count 173 Mean Platelet Volume 7.3 Neutrophils (%) (Auto) 77.7 Lymphocytes (%) (Auto) 12.4 Monocytes (%) (Auto) 6.0 Eosinophils (%) (Auto) 3.6 Basophils (%) (Auto) 0.3 Neutrophils # (Auto) 5.9 Lymphocytes # (Auto) 1.0 Monocytes # (Auto) 0.5 Eosinophils # (Auto) 0.3 Basophils # (Auto) 0.0 CBC Comment AUTO DIFF Differential Comment AUTO DIFF CONFIRMED Platelet Estimate NORMAL Platelet Morphology Comment NORMAL Sodium Level 143 Potassium Level 3.6 Chloride Level 107 Carbon Dioxide Level 27.8 Anion Gap 8 Blood Urea Nitrogen 31 Creatinine 1.16 Estimat Glomerular Filtration 60 Rate Random Glucose 121 Calcium Level 8.2 Magnesium Level 1.8 Date/Time Procedure Status Source Growth 08/31/16 05:00 Stool Occult Blood (STEFANIA) - Final Complete Stool Stool HEMOCCULT POSITIVE Imaging Last Impressions GI Bleed Scan Nuclear Medicine 08/31/16 0000 Signed Impressions: Service Date/Time: Wednesday, August 31, 2016 11:36 - CONCLUSION: Negative for site of gastrointestinal hemorrhage. Russell Marie MD FACR Renal Ultrasound 08/23/16 0000 Signed Impressions: Service Date/Time: Tuesday, August 23, 2016 08:05 - CONCLUSION: I suspect there are two small cortical calcification within the right kidney. No evidence of hydronephrosis or obstruction. Aries Castro MD Catheter Placement X-Ray 08/23/16 Signed Impressions: Service Date/Time: Tuesday, August 23, 2016 09:59 - CONCLUSION: Uncomplicated line placement as above. Nick Perez MD Chest X-Ray 08/22/162018 Signed Impressions: Service Date/Time: Monday, August 22, 2016 20:31 - CONCLUSION: 1. Global cardiomegaly with probable early edematous changes with vascular indistinctness. Trace pleural fluid. Carlos A Spicer MD Physical Exam HEENT: normocephalic; atraumatic; no jaundice. Throat is clear. NECK: Neck is supple, no JVD, no lymphadenopathy. CHEST: Chest is clear to auscultation and percussion. CARDIAC: Regular rate and rhythm with no murmur gallop or rubs. ABDOMEN: Soft, nondistended, nontender; no hepatosplenomegaly; bowel sounds are present in all four quadrants. EXTREMITIES: No clubbing, cyanosis, or edema. SKIN: dssng to right foot ACCOUNTS SPECIALIST: alert and oriented times three. (Adrianna Lieberman) Assessment and Plan Plan - GI bleed/melena/maroon bloody stools- no more bleeding, hgb today dropped to 6.9, no obvious bleeding reported S/P EGD on (---->Erythematous gastritis, bx showed chronic gastritis. s/p Flex/sig ( 08/31/16)----> diverticulosis, fresh blood in colon, S/P bleeding scan which is negative. with history of recurrent GI bleed and under went EGD/colonoscopy, CE in [place] and no source was found according to . - Acute renal failure/hyperkalemia- Good response with HD - PMH of A-fib, CABG, pace maker per attending Plan: - SUSAN - SBFT - Colonoscopy on Monday, this was discussed with nurse - CRS on the case - Monitor hh - Transfuse as needed - Notify Gi for active bleed - Cont. PPI - Supportive care - Patient seen and examined by Dr. alexis and myself and this note is written on his behalf. (Adrianna Lieberman) Physician Comments Seen and examined with . 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 Has been bleeding off and on for [address] per . Dr. Domingo on case. SBFT ordered. Repeat colonoscopy planned. STAT bleeding scan if evidence of active bleeding. Discussed with pt. and nurse. Received a total of 2 units of PRBC today for a total of 5 units this admission, . (Carlos Alexis MD) Adrianna Lieberman Sep 02, 2016 11:36 Carlos Alexis MD Sep 02, 2016 16:40
--- NOTE | 2016-09-02 14:10 | HHI.PR ---
Subjective Remarks Follow-up GI bleed. No further bleeding but hemoglobin dropped to 6.9. Currently receiving blood transfusion. Discussed with RN, for SBFT in the morning and colonoscopy next week Objective Vitals Vital Signs Date Time Temp Pulse Resp B/P Pulse Ox O2 Delivery O2 Flow Rate FiO2 09/02/16 10:00 62 09/02/16 09:07 100 Nasal Cannula 2.00 09/02/16 08:00 97.6 59 12 126/64 98 09/02/16 08:00 60 09/02/16 06:00 60 09/02/16 04:00 97.6 60 24 123/58 100 09/02/16 04:00 60 09/02/16 02:00 60 09/02/16 00:00 97.9 60 32 114/71 100 09/02/16 00:00 60 09/01/16 22:00 60 09/01/16 21:32 99 Nasal Cannula 2.00 09/01/16 20:00 97.7 59 26 144/60 100 09/01/16 20:00 60 09/01/16 18:00 60 09/01/16 16:00 97.5 60 20 117/58 95 09/01/16 16:00 59 I/O 09/01/16 09/01/16 09/01/16 09/02/16 09/02/16 09/02/16 07:00 15:00 23:00 07:00 15:00 23:00 Intake Total 885 ml 420 ml 480 ml 480 ml 700 ml Output Total 1 ml 400 ml 750 ml 300 ml Balance 884 ml 20 ml -270 ml 180 ml 700 ml Intake Oral 250 ml 420 ml 480 ml 480 ml IV Total 100 ml 200 ml Packed Cells 535 ml 500 ml Output Urine Total 400 ml 750 ml 300 ml Stool Total 1 ml 0 ml # Voids 2 # Bowel Movements 2 Result Diagram: 09/02/16 0745 09/02/1645 Imaging Last Impressions GI Bleed Scan Nuclear Medicine 08/31/16 0000 Signed Impressions: Service Date/Time: Wednesday, August 31, 2016 11:36 - CONCLUSION: Negative for site of gastrointestinal hemorrhage. Russell Marie MD FACR Renal Ultrasound 08/23/16 0000 Signed Impressions: Service Date/Time: Tuesday, August 23, 2016 08:05 - CONCLUSION: I suspect there are two small cortical calcification within the right kidney. No evidence of hydronephrosis or obstruction. Aries Castro MD Catheter Placement X-Ray 08/23/16 0000 Signed Impressions: Service Date/Time: Tuesday, August 23, 2016 09:59 - CONCLUSION: Uncomplicated line placement as above. Nick Perez MD Chest X-Ray 08/22/16 2019 Signed Impressions: Service Date/Time: Monday, August 22, 2016 20:31 - CONCLUSION: 1. Global cardiomegaly with probable early edematous changes with vascular indistinctness. Trace pleural fluid. Carlos A Spicer MD Objective Remarks GENERAL: Alert, NAD. SKIN: Warm and dry. HEAD: Normocephalic. EYES: No scleral icterus. No injection or drainage. NECK: Supple, trachea midline. No JVD or lymphadenopathy. CARDIOVASCULAR: Regular rate and rhythm without murmurs, gallops, or rubs. RESPIRATORY: Breath sounds equal bilaterally. No accessory muscle use. GASTROINTESTINAL: Abdomen soft, non-tender, nondistended. MUSCULOSKELETAL: No cyanosis, or edema. BACK: Nontender without obvious deformity. No CVA tenderness. Procedures Vas-Cath, EGD, colonoscopy A/P Problem List: (1) Acute renal failure ICD Code: N17.9 Status: Acute (2) Hyperkalemia ICD Code: E87.5 Status: Resolved (3) Generalized weakness ICD Code: R53.1 Status: Acute (4) CAD (coronary artery disease) ICD Code: I25.10 Status: Chronic (5) HTN (hypertension) ICD Code: I10 Status: Chronic (6) DM2 (diabetes mellitus, type 2) ICD Code: E11.9 Status: Chronic (7) COPD (chronic obstructive pulmonary disease) ICD Code: J44.9 Status: Chronic Assessment and Plan 81-year-old male with: - GI bleed -no further bleeding but Hgb continues to drop. - Required multiple blood transfusions. Patient underwent EGD with gastritis and Colonoscopy on 08/31/2016. Discussed with GI attending who reported significant amount of blood in the colon. - GI suspects bleeding from diverticulosis. - Due to significant bleeding, Patient was transferred to ICU for closer observation. STAT bleeding scan did not identify any bleeding source. - Serial H&H. Patient is currently hemodynamically stable. Colorectal surgery is following. - For SBFT in the morning and repeat colonoscopy next week - Continue PPI. - Acute renal failure with severe hyperkalemia: On presentation. Acute renal failure resolving. - Nephrology followed this patient closely. Creatinine 5.06 on admission to 1.40 on 09/01/2016. - Hyperkalemia: Resolved. K+ 3.5 on 09/01/2016. - COPD with chronic respiratory failure on home oxygen: Not in exacerbation. Patient is oxygen dependent. Continue breathing treatments as needed. Continue Symbicort. Supplemental oxygen as needed to keep O2 sat > 90%. Diabetes mellitus type 2: Hold glipizide and metformin. Sliding scale insulin with Accu-Cheks. Hypertension: Continue antihypertensives with hold parameters. Coronary artery disease/atrial fibrillation: Continue statin and Coreg. Patient has a pacemaker. No aspirin for now. Full code. SCDs. Discharge Planning Keep in ICU Problem Qualifiers (1) Acute renal failure: Qualified Code: N17.9 - Acute renal failure, unspecified acute renal failure type Rufino Velásquez MD Sep 02, 2016 14:10
[2016-09-02] MEDS: MAGNESIUM CITRATE SOLN 300 ML BTL PO SCH ×2 (14:28→17:34)
[2016-09-02 16:32] LABS: HEMATOCRIT 29.1 % (39.0-51.0); REVIEW FLAG FINAL
[2016-09-02] MEDS: BISACODYL EC 5 MG TABEC PO SCH ×2 (17:34→21:43)
[2016-09-02] MEDS ORDERED: IOHEXOL 350 MG/ML 10 ML VIAL (for RAD DIAG) IV ONE (19:37)
--- NOTE | 2016-09-02 20:44 | RADRPT ---
EXAM DATE/TIME: 09/02/2016 19:31 [facility] COMPARISON: No previous studies available for comparison. INDICATIONS : Diffuse abdominal pain; evaluate for GI bleed. IV CONTRAST: 73 cc Omnipaque 350 (iohexol) IV ORAL CONTRAST: No oral contrast ingested. RADIATION DOSE: 6.87 CTDIvol (mGy) MEDICAL HISTORY : Hypertension. Diabetes mellitus type 2. SURGICAL HISTORY : CABG Pacemaker. ENCOUNTER: Initial ACUITY: 3 days PAIN SCALE: 5/10 LOCATION: Diffuse abdomen/pelvis TECHNIQUE: Volumetric scanning was performed using a multi-row detector CT scanner. The data was post processed with a variety of visualization algorithms including full volume maximum intensity projection, multi -planar sliding thin slab reformation, curved planar reformation, and surface rendering techniques. Using automated exposure control and adjustment of the mA and/or kV according to patient size, radiat ion dose was kept as low as reasonably achievable to obtain optimal diagnostic quality images. FINDINGS: Small bilateral pleural effusions. Basilar atelectasis. Atherosclerotic aorta without aneurysm. Proxi mal celiac and superior mesenteric arteries are patent. Inferior mesenteric artery also patent. Renal arteries patent. No bowel obstruction. There is a mild ileus. No free air free fluid. No acute bony abnormalities. Prostate is enlarged. No adenopathy. CONCLUSION: 1. Small bilateral effusions with basilar atelectasis. 2. Patent mesenteric vessels. Atherosclerotic aorta and branches without aneurysm. No bowel obstructi on. No free fluid or free air. Mild ileus. Carlos A Spicer MD on September 02, 2016 at 20:39 Board Certified Radiologist. This report was verified electronically.
[2016-09-02] MEDS: PRAVASTATIN SOD 40 MG TAB PO SCH (21:41)
--- NOTE | 2016-09-02 23:21 | HHI.PR ---
Subjective Remarks C/R surg events reviewed ?dark blood this afternoon appetite good Objective - Vital Signs Date Time Temp Pulse Resp B/P Pulse Ox O2 Delivery O2 Flow Rate FiO2 09/02/16 21:39 95 Nasal Cannula 2.00 09/02/16 18:00 60 09/02/16 16:00 98.1 14 152/86 08/29/16 19:22 21 Result Diagram: 09/02/16 1527 09/02/16 0745 Objective Remarks PE alert Abd - soft, non-tender, no BRB, no N/V A/P Assessment and Plan Imp: stable bleeding scan negative, CTA neg Hgb up after tx PRBC José Miguel Domingo MD Sep 02, 2016 23:21
[2016-09-03] VITALS (13 sets, daily range): BP systolic 124–147; BP diastolic 67–96; PULSE 59–60; RESP 14–20; TEMP 97.6–98.9; O2SAT 98–100
[2016-09-03 04:44] LABS: BICARBONATE 32.6 MEQ/L (21.0-32.0); MAGNESIUM 2.2 MG/DL (1.5-2.5); POTASSIUM 3.7 MEQ/L (3.5-5.1)
[2016-09-03 04:47] LABS: AUTOMATED NEUTROPHIL # 7.2 TH/MM3 (1.8-7.7); BASOPHIL % 0.3 % (0.0-2.0); EOSINOPHIL # 0.2 TH/MM3 (0-0.4); EOSINOPHIL % 2.4 % (0.0-4.0); HEMATOCRIT 27.4 % (39.0-51.0); LYMPH % 11.2 % (9.0-44.0); MEAN CELL VOLUME 85.6 FL (80.0-100.0); MEAN CORPUSCULAR HEMOGLOBIN 29.3 PG (27.0-34.0); MEAN CORPUSCULAR HGB CONC 34.3 % (32.0-36.0); MONO % 5.8 % (0.0-8.0); NEUT % 80.3 % (16.0-70.0); PLATELET COUNT 188 TH/MM3 (150-450); RED CELL DISTRIBUTION WIDTH 16.2 % (11.6-17.2)
[2016-09-03 04:49] LABS: HEMO FLAGS AUTO DIFF
[2016-09-03 05:46] LABS: PLATELET ESTIMATE SMEAR NORMAL (NORMAL); PLATELET MORPHOLOGY NORMAL (NORMAL); SCAN/DIFF AUTO DIFF CONFIRMED; TARGET CELLS 1+ (NORMAL)
[2016-09-03] MEDS: INSULIN ASPART SUPPLEMENTAL SCALE SQ SCH ×4 (07:00→20:22)
[2016-09-03] MEDS: PANTOPRAZOLE SOD 40 MG DELAYED RELEASE TAB PO SCH (08:19)
[2016-09-03] MEDS: SERTRALINE HCL 100 MG TAB PO SCH (08:19)
[2016-09-03] MEDS: guaiFENesin E.R. 600 MG TAB PO SCH ×2 (08:19→20:22)
[2016-09-03] MEDS: FERROUS SULFATE 325 MG (65 MG ELEMENTAL IRON) TAB PO SCH ×2 (08:19→20:22)
[2016-09-03] MEDS: TAMSULOSIN HCL 0.4 MG CAP PO SCH (08:19)
[2016-09-03] MEDS: CARVEDILOL 12.5 MG TAB PO SCH ×2 (08:19→20:22)
[2016-09-03] MEDS: SODIUM CHLORIDE 0.9% FLUSH 5 ML FLUSH FLUSH SCH ×2 (08:20→20:22)
[2016-09-03 12:37] LABS: HEMATOCRIT 28.5 % (39.0-51.0)
--- NOTE | 2016-09-03 15:32 | HHI.GIFU ---
Subjective Remarks Seen in Bleeding Scan. Pt and nurse report that he had one large black tarry stool last night and again this am. He complains of generalized weakness, but denies any nausea, vomiting, abdominal pain. (Inessa Grijalva) Objective Vitals I&O Vital Signs Date Time Temp Pulse Resp B/P Pulse Ox O2 Delivery O2 Flow Rate FiO2 09/03/16 12:00 60 09/03/16 08:45 100 Nasal Cannula 2.00 09/03/16 08:00 60 09/03/16 06:00 60 09/03/16 04:00 97.6 60 20 124/96 98 09/03/16 04:00 60 09/03/16 02:00 60 09/03/16 00:00 60 09/03/16 00:00 97.9 60 16 147/67 98 09/02/16 22:00 60 09/02/16 21:39 95 Nasal Cannula 2.00 09/02/16 20:00 59 09/02/16 20:00 98.3 59 20 138/64 99 09/02/16 18:00 60 09/02/16 16:00 98.1 60 14 152/86 100 09/02/16 16:00 60 I/O 09/02/16 09/02/16 09/02/16 09/03/16 09/03/16 09/03/16 07:00 15:00 23:00 07:00 15:00 23:00 Intake Total 480 ml 1110 ml 55 ml 0 ml Output Total 300 ml 900 ml 475 ml 300 ml Balance 180 ml 210 ml -420 ml -300 ml Intake Oral 480 ml 410 ml 50 ml IV Total 200 ml 5 ml 0 ml Packed Cells 500 ml Output Urine Total 300 ml 900 ml 475 ml 300 ml # Voids 2 1 # Bowel Movements 0 2 Laboratory Laboratory Tests Test 09/02/16 09/03/16 09/03/16 15:27 03:20 11:42 Hemoglobin 10.1 9.4 9.8 Hematocrit 29.1 27.4 28.5 White Blood Count 9.0 Red Blood Count 3.20 Mean Corpuscular Volume 85.6 Mean Corpuscular Hemoglobin 29.3 Mean Corpuscular Hemoglobin 34.3 Concent Red Cell Distribution Width 16.2 Platelet Count 188 Mean Platelet Volume 7.5 Neutrophils (%) (Auto) 80.3 Lymphocytes (%) (Auto) 11.2 Monocytes (%) (Auto) 5.8 Eosinophils (%) (Auto) 2.4 Basophils (%) (Auto) 0.3 Neutrophils # (Auto) 7.2 Lymphocytes # (Auto) 1.0 Monocytes # (Auto) 0.5 Eosinophils # (Auto) 0.2 Basophils # (Auto) 0.0 CBC Comment AUTO DIFF Differential Comment AUTO DIFF CONFIRMED Platelet Estimate NORMAL Platelet Morphology Comment NORMAL Target Cells 1+ Sodium Level 142 Potassium Level 3.7 Chloride Level 104 Carbon Dioxide Level 32.6 Anion Gap 5 Blood Urea Nitrogen 34 Creatinine 1.13 Estimat Glomerular Filtration 62 Rate Random Glucose 103 Calcium Level 8.3 Magnesium Level 2.2 Date/Time Procedure Status Source Growth 08/31/16 05:00 Stool Occult Blood (STEFANIA) - Final Complete Stool Stool HEMOCCULT POSITIVE Imaging Last Impressions Abdomen/Pelvis CT 09/02/16 0000 Signed Impressions: Service Date/Time: Friday, September 02, 2016 19:31 - CONCLUSION: 1. Small bilateral effusions with basilar atelectasis. 2. Patent mesenteric vessels. Atherosclerotic aorta and branches without aneurysm. No bowel obstruction. No free fluid or free air. Mild ileus. Carlos A Spicer MD GI Bleed Scan Nuclear Medicine 08/31/16 0000 Signed Impressions: Service Date/Time: Wednesday, August 31, 2016 11:36 - CONCLUSION: Negative for site of gastrointestinal hemorrhage. Russell Marie MD FACR Renal Ultrasound 08/23/16 0000 Signed Impressions: Service Date/Time: Tuesday, August 23, 2016 08:05 - CONCLUSION: I suspect there are two small cortical calcification within the right kidney. No evidence of hydronephrosis or obstruction. Aries Castro MD Catheter Placement X-Ray 08/23/16 0000 Signed Impressions: Service Date/Time: Tuesday, August 23, 2016 09:59 - CONCLUSION: Uncomplicated line placement as above. Nick Perez MD Chest X-Ray 08/22/162018 Signed Impressions: Service Date/Time: Monday, August 22, 2016 20:31 - CONCLUSION: 1. Global cardiomegaly with probable early edematous changes with vascular indistinctness. Trace pleural fluid. Carlos A Spicer MD Physical Exam HEENT: Normocephalic; atraumatic; no jaundice. CHEST: CTA CARDIAC: RRR ABDOMEN: Soft, nondistended, nontender; no hepatosplenomegaly; bowel sounds are present in all four quadrants. EXTREMITIES: No clubbing, cyanosis, or edema. SKIN: Generalized pallor RV REPAIRER: Lethargic, oriented to self and place (Inessa Grijalva) Assessment and Plan Plan ASSESSMENT: - Recurrent GI bleeding with melena/maroon bloody stools. Pt has hx of recurrent GI bleeding and underwent egd/colonoscopy, capsule endoscopy in [place] with no source of bleeding. S/P EGD on (----> Erythematous gastritis, bx showed chronic gastritis. S/P Flex/sig ( 08/31/16)----> diverticulosis, fresh blood in colon. Pt had drop in Hgb yesterday and required additional blood- 7 units total. SBFT pending. Had black tarry stool last night and again this morning. Pt in bleeding scan- no n/v/pain. CRS following. ? Diverticular bleed. Will schedule patient for colonoscopy in am. - Anemia. S/P 7 units of PRBC. 9.8/28.5. - ARF, Resolved. - PMH of A-fib, CABG, pace maker per attending Plan: - Plan for colonoscopy in am - Obtain consents - Clear liquids - NPO after MN - Golytely prep - Monitor HH - Transfuse as necessary - Await Bleeding scan - Await SBFT - Cont. PPI - CRS following - Supportive care - Patient seen and examined by Dr. alexis and myself and this note is written on his behalf. (Inessa Grijalva) Physician Comments Seen and examined with Ms. Rudi RIDLEY, continues to have intermittent bleeding. CT -ve, SBFT-p. repeat bleeding scan -p. Colonoscopy tomorrow. ( Carlos Alexis MD) Inessa Grijalva Sep 03, 2016 15:32 Carlos Alexis MD Sep 03, 2016 16:20
--- NOTE | 2016-09-03 15:43 | HHI.PR ---
Subjective Remarks Follow-up GI bleed. Patient with 2 episodes of black tarry stools since last night complains of weakness. Denies nausea, chest pain, shortness of breath and abdominal pain. Discussed with RN and GI ADMINISTRATIVE OFFICE MANAGER. Patient seen in nuclear medicine undergoing bleeding scan Objective Vitals Vital Signs Date Time Temp Pulse Resp B/P Pulse Ox O2 Delivery O2 Flow Rate FiO2 09/03/16 12:00 60 09/03/16 08:45 100 Nasal Cannula 2.00 09/03/16 08:00 60 09/03/16 06:00 60 09/03/16 04:00 97.6 60 20 124/96 98 09/03/16 04:00 60 09/03/16 02:00 60 09/03/16 00:00 60 09/03/16 00:00 97.9 60 16 147/67 98 09/02/16 22:00 60 09/02/16 21:39 95 Nasal Cannula 2.00 09/02/16 20:00 59 09/02/16 20:00 98.3 59 20 138/64 99 09/02/16 18:00 60 09/02/16 16:00 98.1 60 14 152/86 100 09/02/16 16:00 60 I/O 09/02/16 09/02/16 09/02/16 09/03/16 09/03/16 09/03/16 07:00 15:00 23:00 07:00 15:00 23:00 Intake Total 480 ml 1110 ml 55 ml 0 ml Output Total 300 ml 900 ml 475 ml 300 ml Balance 180 ml 210 ml -420 ml -300 ml Intake Oral 480 ml 410 ml 50 ml IV Total 200 ml 5 ml 0 ml Packed Cells 500 ml Output Urine Total 300 ml 900 ml 475 ml 300 ml # Voids 2 1 # Bowel Movements 0 2 Result Diagram: 09/03/16 1142 09/03/16 0320 Imaging Last Impressions Abdomen/Pelvis CT 09/02/16 0000 Signed Impressions: Service Date/Time: Friday, September 02, 2016 19:31 - CONCLUSION: 1. Small bilateral effusions with basilar atelectasis. 2. Patent mesenteric vessels. Atherosclerotic aorta and branches without aneurysm. No bowel obstruction. No free fluid or free air. Mild ileus. Carlos A Spicer MD GI Bleed Scan Nuclear Medicine 2/8/17 0000 Signed Impressions: Service Date/Time: Wednesday, August 31, 2016 11:36 - CONCLUSION: Negative for site of gastrointestinal hemorrhage. Russell Marie MD FACR Renal Ultrasound 08/23/16 Signed Impressions: Service Date/Time: Tuesday, August 23, 2016 08:05 - CONCLUSION: I suspect there are two small cortical calcification within the right kidney. No evidence of hydronephrosis or obstruction. Aries Castro MD Catheter Placement X-Ray 08/23/16 Signed Impressions: Service Date/Time: Tuesday, August 23, 2016 09:59 - CONCLUSION: Uncomplicated line placement as above. Nick Perez MD Chest X-Ray 08/22/162018 Signed Impressions: Service Date/Time: Monday, August 22, 2016 20:31 - CONCLUSION: 1. Global cardiomegaly with probable early edematous changes with vascular indistinctness. Trace pleural fluid. Carlos A Spicer MD Objective Remarks GENERAL: Alert, NAD. SKIN: Warm and dry. HEAD: Normocephalic. EYES: No scleral icterus. No injection or drainage. NECK: Supple, trachea midline. No JVD or lymphadenopathy. CARDIOVASCULAR: Regular rate and rhythm without murmurs, gallops, or rubs. RESPIRATORY: Breath sounds equal bilaterally. No accessory muscle use. GASTROINTESTINAL: Abdomen soft, non-tender, nondistended. MUSCULOSKELETAL: No cyanosis, or edema. BACK: Nontender without obvious deformity. No CVA tenderness. Procedures Vas-Cath, EGD, colonoscopy A/P Problem List: (1) Acute renal failure ICD Code: N17.9 Status: Acute (2) Hyperkalemia ICD Code: E87.5 Status: Resolved (3) Generalized weakness ICD Code: R53.1 Status: Acute (4) CAD (coronary artery disease) ICD Code: I25.10 Status: Chronic (5) HTN (hypertension) ICD Code: I10 Status: Chronic (6) DM2 (diabetes mellitus, type 2) ICD Code: E11.9 Status: Chronic (7) COPD (chronic obstructive pulmonary disease) ICD Code: J44.9 Status: Chronic Assessment and Plan 81-year-old male with: - GI bleed -now with tarry stools . Hgb improved after transfusion overnight now stable at 9.4 - Required multiple blood transfusions 5 packed RBCs so far. Patient underwent EGD with gastritis and Colonoscopy on 08/31/2016. Discussed with GI attending who reported significant amount of blood in the colon. - GI suspects bleeding from diverticulosis. - Due to significant bleeding, Patient was transferred to ICU for closer observation. STAT bleeding scan did not identify any bleeding source. Repeat bleeding scan pending - Serial H&H. Patient is currently hemodynamically stable. Colorectal surgery is following. -Follow-up SBFT - Continue PPI. - Acute renal failure with severe hyperkalemia: On presentation. Acute renal failure resolving. - Nephrology followed this patient closely. Creatinine 5.06 on admission to 1.40 on 09/01/2016. - Hyperkalemia: Resolved. K+ 3.5 on 09/01/2016. - COPD with chronic respiratory failure on home oxygen: Not in exacerbation. Patient is oxygen dependent. Continue breathing treatments as needed. Continue Symbicort. Supplemental oxygen as needed to keep O2 sat > 90%. Diabetes mellitus type 2: Hold glipizide and metformin. Sliding scale insulin with Accu-Cheks. Hypertension: Continue antihypertensives with hold parameters. Coronary artery disease/atrial fibrillation: Continue statin and Coreg. Patient has a pacemaker. No aspirin for now. Full code. SCDs. Discharge Planning Keep in ICU Problem Qualifiers (1) Acute renal failure: Qualified Code: N17.9 - Acute renal failure, unspecified acute renal failure type Rufino Velásquez MD Sep 03, 2016 15:43
[2016-09-03] MEDS ORDERED: PEG (High)/E-LYTE SOLN 4000 ML BTL PO ONE (16:00)
--- NOTE | 2016-09-03 16:05 | RADRPT ---
EXAM DATE/TIME: 09/03/2016 13:20 [facility] COMPARISON: No previous studies available for comparison. INDICATIONS : GI bleeding. Blood in stool. DOSE: 20.1 mCi Tc99m Ultratag labeled red blood cells IV IMAGIN hrs MEDICAL HISTORY : Coronary artery disease. SURGICAL HISTORY : Pacemaker. Aortic valve replacement. ENCOUNTER: Initial ACUITY: 1 day PAIN SCALE: 3/10 LOCATION: Abdomen. TECHNIQUE: Following the modified in vitro labeling of autologous red cells, dynamic continuous images were acqu ired for the specified interval. FINDINGS: BIODISTRIBUTION: There is a very good labeling of red cells without significant uptake in the gastric wall. There is good delineation of the blood pool of the spleen and abdominal vessels. BLEEDING: No episodes of active GI bleeding are observed during specified interval of continuous observation. CONCLUSION: Normal examination. Carlos A Spicer MD on September 03, 2016 at 16:02 Board Certified Radiologist. This report was verified electronically.
--- NOTE | 2016-09-03 16:39 | RADRPT ---
EXAM DATE/TIME: 09/03/2016 09:24 [facility] COMPARISON: No previous studies available for comparison. INDICATIONS : Anemia. History of GI bleeds. FLUORO TIME: minutes IMAGE COUNT: 17 CONTRAST: [facility] IMAGING TIME(S): 15 min, 30 min, 45 min, 1 hr, 1.5 hrs2 1/2hr, 6 hr. MEDICAL HISTORY : Diabetes mellitus type II. Renal insufficiency. SURGICAL HISTORY : Cholecystectomy. Kidney repair ENCOUNTER: Initial ACUITY: 3 days PAIN SCORE: 0/10 LOCATION: Bilateral abdomen FINDINGS: Preliminary film is unremarkable. The stomach is grossly unremarkable. Examination of the small bowel demonstrates normal mucosal pattern involving the jejunum and ileum. There is no evidence of mass or obstruction. No intraluminal filling defects are identified. Small bowel transit time is normal at 30 minutes. Fluoroscopy of the abdomen and terminal ileum demonstrat es no abnormality. CONCLUSION: Unremarkable small bowel examination. Carlos A Spicer MD on September 03, 2016 at 16:37 Board Certified Radiologist. This report was verified electronically.
[2016-09-03] MEDS: PRAVASTATIN SOD 40 MG TAB PO SCH (20:22)
[2016-09-03 22:35] LABS: HEMATOCRIT 28.6 % (39.0-51.0)
[2016-09-04] VITALS (13 sets, daily range): BP systolic 120–146; BP diastolic 55–67; PULSE 60; RESP 20–22; TEMP 97.8–98.5; O2SAT 97–100
[2016-09-04 04:31] LABS: AUTOMATED NEUTROPHIL # 7.9 TH/MM3 (1.8-7.7); BASOPHIL % 0.4 % (0.0-2.0); EOSINOPHIL # 0.4 TH/MM3 (0-0.4); EOSINOPHIL % 4.3 % (0.0-4.0); HEMATOCRIT 31.6 % (39.0-51.0); HEMO FLAGS DIFF FINAL; LYMPH % 11.5 % (9.0-44.0); LYMPHOCYTE # 1.2 TH/MM3 (1.0-4.8); MEAN CELL VOLUME 86.1 FL (80.0-100.0); MEAN CORPUSCULAR HEMOGLOBIN 28.8 PG (27.0-34.0); MEAN CORPUSCULAR HGB CONC 33.5 % (32.0-36.0); MONO % 4.8 % (0.0-8.0); PLATELET COUNT 218 TH/MM3 (150-450); RED BLOOD COUNT 3.67 MIL/MM3 (4.50-5.90); RED CELL DISTRIBUTION WIDTH 16.9 % (11.6-17.2)
[2016-09-04 04:41] LABS: APTT (PATIENT) 25.4 SEC (24.3-30.1); PROTHROMBIN TIME - PATIENT 10.8 SEC (9.8-11.6)
[2016-09-04 05:06] LABS: BICARBONATE 30.2 MEQ/L (21.0-32.0); MAGNESIUM 2.2 MG/DL (1.5-2.5); POTASSIUM 3.5 MEQ/L (3.5-5.1)
[2016-09-04] MEDS: INSULIN ASPART SUPPLEMENTAL SCALE SQ SCH ×4 (06:10→21:00)
[2016-09-04] MEDS: FERROUS SULFATE 325 MG (65 MG ELEMENTAL IRON) TAB PO SCH ×2 (08:27→21:02)
[2016-09-04] MEDS: SERTRALINE HCL 100 MG TAB PO SCH (08:27)
[2016-09-04] MEDS: CARVEDILOL 12.5 MG TAB PO SCH ×2 (08:27→21:02)
[2016-09-04] MEDS: guaiFENesin E.R. 600 MG TAB PO SCH ×2 (08:27→21:02)
[2016-09-04] MEDS: SODIUM CHLORIDE 0.9% FLUSH 5 ML FLUSH FLUSH SCH ×2 (08:27→21:03)
[2016-09-04] MEDS: TAMSULOSIN HCL 0.4 MG CAP PO SCH (08:27)
[2016-09-04] MEDS: PANTOPRAZOLE SOD 40 MG DELAYED RELEASE TAB PO SCH (08:27)
[2016-09-04] MEDS ORDERED: SODIUM PHOSPHATE INJ 30 MMOL in SODIUM CHLOR 0.9% 250 ML INJ 240 ML IV PRN (08:45)
[2016-09-04] MEDS ORDERED: POTASSIUM CL 40 MEQ/30 ML LIQ UDC PO/TUBE PRN ×2 (08:45)
[2016-09-04] MEDS ORDERED: POTASSIUM PHOSPHATE MONOBASIC 500 MG TAB PO/TUBE PRN (08:45)
[2016-09-04] MEDS ORDERED: MAGNESIUM SULFATE INJ 4 GM in SODIUM CHLORIDE 0.9% INJ 92 ML IV PRN (08:45)
[2016-09-04] MEDS ORDERED: POTASSIUM CHLOR 20 MEQ PREMIX 100 ML IV PRN ×2 (08:45)
[2016-09-04] MEDS ORDERED: POTASSIUM CHLOR 40 MEQ PREMIX 100 ML IV PRN ×2 (08:45)
[2016-09-04] MEDS ORDERED: MAGNESIUM SULFATE INJ 2 GM in SODIUM CHLORIDE 0.9% INJ 96 ML IV PRN (08:45)
[2016-09-04] MEDS ORDERED: POTASSIUM PHOSPHATE INJ 30 MMOL in SODIUM CHLOR 0.9% 250 ML INJ 250 ML IV PRN (08:45)
[2016-09-04] MEDS ORDERED: MAGNESIUM OXIDE 400 MG TAB PO PRN (08:45)
[2016-09-04] MEDS ORDERED: POTASSIUM PHOSPHATE MONOBASIC 500 MG TAB PO PRN (08:45)
[2016-09-04] MEDS ORDERED: KETAMINE HCL 500 MG/5 ML VIAL ONE (12:27)
[2016-09-04] MEDS ORDERED: MAGNESIUM CITRATE SOLN 300 ML BTL PO ONE (13:30)
[2016-09-04] MEDS ORDERED: DO NOT ADM ANY ANTICOAGULANT DRUGS XX PRN (13:45)
--- NOTE | 2016-09-04 14:43 | HHI.PR ---
Subjective Remarks Follow GI bleed. No further bleeding. Colonoscopy today showed poor prep and will be repeated tomorrow. Patient has no complaints denies abdominal pain. Seen with . Discussed with Objective Vitals Vital Signs Date Time Temp Pulse Resp B/P Pulse Ox O2 Delivery O2 Flow Rate FiO2 09/04/16 13:30 59 16 133/72 100 Nasal Cannula 2 09/04/16 13:15 98.0 59 16 121/55 99 Nasal Cannula 2 09/04/16 12:00 98.3 60 20 132/57 97 09/04/16 12:00 60 09/04/16 10:00 60 09/04/16 08:00 97.8 60 20 125/58 100 09/04/16 08:00 60 09/04/16 06:00 60 09/04/16 04:00 60 09/04/16 04:00 98.5 60 22 126/60 100 09/04/16 02:00 60 09/04/16 00:00 60 09/04/16 00:00 98.3 60 21 146/67 100 09/03/16 23:05 100 Nasal Cannula 2.00 09/03/16 22:00 59 09/03/16 20:03 99 Nasal Cannula 2.00 09/03/16 20:00 60 09/03/16 20:00 97.7 60 20 144/69 100 09/03/16 18:00 60 09/03/16 16:00 98.9 60 16 147/68 98 09/03/16 16:00 60 I/O 09/03/16 09/03/16 09/03/16 09/04/16 09/04/16 09/04/16 07:00 15:00 23:00 07:00 15:00 23:00 Intake Total 0 ml 320 ml 1200 ml 1300 ml 400 ml Output Total 300 ml 600 ml 800 ml 2000 ml 0 ml Balance -300 ml -280 ml 400 ml -700 ml 400 ml Intake Oral 320 ml 1200 ml 1300 ml 0 ml IV Total 0 ml 0 ml Other 400 ml Output Urine Total 300 ml 600 ml 800 ml 400 ml 0 ml Stool Total 1600 ml Estimated Blood Loss 0 ml Other 0 ml # Voids 1 2 # Bowel Movements 2 4 2 2 Result Diagram: 09/04/1640309/04/164 Imaging Last Impressions GI Bleed Scan Nuclear Medicine 2/11/17 0000 Signed Impressions: Service Date/Time: Saturday, September 03, 2016 13:20 - CONCLUSION: Normal examination. Carlos A Spicer MD Small Bowel X-Ray 09/02/16 Signed Impressions: Service Date/Time: Saturday, September 03, 2016 09:24 - CONCLUSION: Unremarkable small bowel examination. Carlos A Spicer MD Abdomen/Pelvis CT 09/02/16 Signed Impressions: Service Date/Time: Friday, September 02, 2016 19:31 - CONCLUSION: 1. Small bilateral effusions with basilar atelectasis. 2. Patent mesenteric vessels. Atherosclerotic aorta and branches without aneurysm. No bowel obstruction. No free fluid or free air. Mild ileus. Carlos A Spicer MD Renal Ultrasound 08/23/16 Signed Impressions: Service Date/Time: Tuesday, August 23, 2016 08:05 - CONCLUSION: I suspect there are two small cortical calcification within the right kidney. No evidence of hydronephrosis or obstruction. Aries Castro MD Catheter Placement X-Ray 08/23/16 Signed Impressions: Service Date/Time: Tuesday, August 23, 2016 09:59 - CONCLUSION: Uncomplicated line placement as above. Nick Perez MD Chest X-Ray 08/22/162018 Signed Impressions: Service Date/Time: Monday, August 22, 2016 20:31 - CONCLUSION: 1. Global cardiomegaly with probable early edematous changes with vascular indistinctness. Trace pleural fluid. Carlos A Spicer MD Objective Remarks GENERAL: Alert, NAD. SKIN: Warm and dry. HEAD: Normocephalic. Atraumatic EYES: No scleral icterus. No injection or drainage. NECK: Supple, trachea midline. No JVD or lymphadenopathy. CARDIOVASCULAR: Regular rate and rhythm without murmurs, gallops, or rubs. RESPIRATORY: Breath sounds equal bilaterally. No accessory muscle use. GASTROINTESTINAL: Abdomen soft, non-tender, nondistended. MUSCULOSKELETAL: No cyanosis, or edema. BACK: Nontender without obvious deformity. No CVA tenderness. Procedures Vas-Cath, EGD, colonoscopy A/P Problem List: (1) Acute renal failure ICD Code: N17.9 Status: Acute (2) Hyperkalemia ICD Code: E87.5 Status: Resolved (3) Generalized weakness ICD Code: R53.1 Status: Acute (4) CAD (coronary artery disease) ICD Code: I25.10 Status: Chronic (5) HTN (hypertension) ICD Code: I10 Status: Chronic (6) DM2 (diabetes mellitus, type 2) ICD Code: E11.9 Status: Chronic (7) COPD (chronic obstructive pulmonary disease) ICD Code: J44.9 Status: Chronic Assessment and Plan 81-year-old male with: - GI bleed -no recurrence since chest today. Hgb improved after transfusion - Required multiple blood transfusions 5 packed RBCs so far. Patient underwent EGD with gastritis and Colonoscopy on 08/31/2016 with significant amount of blood in the colon. - GI suspects bleeding from diverticulosis. - Due to significant bleeding, Patient was transferred to ICU for closer observation. STAT bleeding scan did not identify any bleeding source. Repeat bleeding scan was negative as well as small bowel follow through. Repeat colonoscopy today with poor prep and will be rescheduled tomorrow - Serial H&H. Patient is currently hemodynamically stable. Colorectal surgery is following. - Continue PPI. - Acute renal failure with severe hyperkalemia: On presentation. Acute renal failure resolving. - Nephrology followed this patient closely. Creatinine 5.06 on admission to 1.40 on 09/01/2016. - Hyperkalemia: Resolved. K+ 3.5 on 09/01/2016. - COPD with chronic respiratory failure on home oxygen: Not in exacerbation. Patient is oxygen dependent. Continue breathing treatments as needed. Continue Symbicort. Supplemental oxygen as needed to keep O2 sat > 90%. Diabetes mellitus type 2: Hold glipizide and metformin. Sliding scale insulin with Accu-Cheks. Hypertension: Continue antihypertensives with hold parameters. Coronary artery disease/atrial fibrillation: Continue statin and Coreg. Patient has a pacemaker. No aspirin for now. Full code. SCDs. Discharge Planning Patient stable will be transferred to medical floor with telemetry Problem Qualifiers (1) Acute renal failure: Qualified Code: N17.9 - Acute renal failure, unspecified acute renal failure type Rufino Velásquez MD Sep 04, 2016 14:43
[2016-09-04] MEDS ORDERED: PROPOFOL 200 MG/20 ML AMP IV ONE (14:51)
[2016-09-04] MEDS: PRAVASTATIN SOD 40 MG TAB PO SCH (21:06)
[2016-09-05] VITALS (10 sets, daily range): BP systolic 129–150; BP diastolic 54–68; PULSE 59–69; RESP 16–20; TEMP 96.1–98.3; O2SAT 95–100
[2016-09-05] MEDS: SODIUM CHLORID 0.9% 500 ML IV SCH ×2 (03:45→20:25)
[2016-09-05] MEDS: INSULIN ASPART SUPPLEMENTAL SCALE SQ SCH ×4 (07:00→20:57)
[2016-09-05 07:32] LABS: AUTOMATED NEUTROPHIL # 7.7 TH/MM3 (1.8-7.7); BASOPHIL % 0.2 % (0.0-2.0); EOSINOPHIL # 0.4 TH/MM3 (0-0.4); EOSINOPHIL % 3.9 % (0.0-4.0); HEMATOCRIT 25.8 % (39.0-51.0); HEMO FLAGS DIFF FINAL; LYMPHOCYTE # 0.8 TH/MM3 (1.0-4.8); MEAN CELL VOLUME 86.4 FL (80.0-100.0); MEAN CORPUSCULAR HEMOGLOBIN 29.3 PG (27.0-34.0); MEAN CORPUSCULAR HGB CONC 33.9 % (32.0-36.0); MONO % 4.8 % (0.0-8.0); NEUT % 82.1 % (16.0-70.0); PLATELET COUNT 184 TH/MM3 (150-450); RED BLOOD COUNT 2.98 MIL/MM3 (4.50-5.90); RED CELL DISTRIBUTION WIDTH 16.6 % (11.6-17.2); WHITE BLOOD COUNT 9.4 TH/MM3 (4.0-11.0)
[2016-09-05 07:57] LABS: BICARBONATE 30.7 MEQ/L (21.0-32.0); MAGNESIUM 2.6 MG/DL (1.5-2.5); POTASSIUM 3.3 MEQ/L (3.5-5.1)
[2016-09-05] MEDS: FERROUS SULFATE 325 MG (65 MG ELEMENTAL IRON) TAB PO SCH ×2 (09:00→20:56)
[2016-09-05] MEDS: guaiFENesin E.R. 600 MG TAB PO SCH ×2 (09:00→20:56)
[2016-09-05] MEDS: SERTRALINE HCL 100 MG TAB PO SCH (09:00)
[2016-09-05] MEDS: PANTOPRAZOLE SOD 40 MG DELAYED RELEASE TAB PO SCH (09:00)
[2016-09-05] MEDS: CARVEDILOL 12.5 MG TAB PO SCH ×2 (09:00→20:56)
[2016-09-05] MEDS: TAMSULOSIN HCL 0.4 MG CAP PO SCH (09:00)
[2016-09-05] MEDS: SODIUM CHLORIDE 0.9% FLUSH 5 ML FLUSH FLUSH SCH ×2 (09:00→20:57)
[2016-09-05] MEDS ORDERED: PROPOFOL 200 MG/20 ML AMP IV ONE (14:50)
--- NOTE | 2016-09-05 18:48 | HHI.PR ---
Subjective Remarks Follow up for GI bleed. Mr. Priest underwent colonoscopy today. Discussed with GI attending. Patient's colonoscopy did not show any bleeding. Patient denies any chest pain, shortness of breath, fever or chills. Objective Vitals Vital Signs Date Time Temp Pulse Resp B/P Pulse Ox O2 Delivery O2 Flow Rate FiO2 09/05/16 16:02 96.9 60 18 150/66 95 09/05/16 15:30 60 16 170/64 98 09/05/16 15:25 60 16 147/72 99 09/05/16 15:20 97.6 60 16 137/67 100 09/05/16 14:14 97 21 09/05/16 10:15 97.8 59 18 146/68 97 09/05/16 08:00 97.8 59 18 146/68 97 09/05/16 04:00 96.1 59 16 141/64 99 09/05/16 02:18 97.0 65 16 148/63 100 09/05/16 00:00 60 09/05/16 00:00 98.3 59 20 129/61 100 09/04/16 22:00 60 09/04/16 20:00 98.4 60 20 120/55 100 09/04/16 20:00 60 09/04/16 19:07 100 Nasal Cannula 2.00 I/O 09/04/16 09/04/16 09/04/16 09/05/16 09/05/16 09/05/16 07:00 15:00 23:00 07:00 15:00 23:00 Intake Total 1300 ml 460 ml 273 ml 0 ml 573 ml Output Total 2000 ml 550 ml 300 ml 200 ml Balance -700 ml -90 ml -27 ml 0 ml 373 ml Intake Oral 1300 ml 60 ml 0 ml 248 ml IV Total 0 ml 273 ml 325 ml Other 400 ml Output Urine Total 400 ml 550 ml 300 ml 200 ml Stool Total 1600 ml Estimated Blood Loss 0 ml Other 0 ml # Voids 1 0 1 # Bowel Movements 2 2 1 0 1 Result Diagram: 09/05/1644 09/05/1644 Imaging Last Impressions GI Bleed Scan Nuclear Medicine 09/03/16 0000 Signed Impressions: Service Date/Time: Saturday, September 03, 2016 13:20 - CONCLUSION: Normal examination. Carlos A Spicer MD Small Bowel X-Ray 09/02/16 Signed Impressions: Service Date/Time: Saturday, September 03, 2016 09:24 - CONCLUSION: Unremarkable small bowel examination. Carlos A Spicer MD Abdomen/Pelvis CT 09/02/16 Signed Impressions: Service Date/Time: Friday, September 02, 2016 19:31 - CONCLUSION: 1. Small bilateral effusions with basilar atelectasis. 2. Patent mesenteric vessels. Atherosclerotic aorta and branches without aneurysm. No bowel obstruction. No free fluid or free air. Mild ileus. Carlos A Spicer MD Renal Ultrasound 08/23/16 Signed Impressions: Service Date/Time: Tuesday, August 23, 2016 08:05 - CONCLUSION: I suspect there are two small cortical calcification within the right kidney. No evidence of hydronephrosis or obstruction. Aries Castro MD Catheter Placement X-Ray 08/23/16 Signed Impressions: Service Date/Time: Tuesday, August 23, 2016 09:59 - CONCLUSION: Uncomplicated line placement as above. Nick Perez MD Chest X-Ray 08/22/162018 Signed Impressions: Service Date/Time: Monday, August 22, 2016 20:31 - CONCLUSION: 1. Global cardiomegaly with probable early edematous changes with vascular indistinctness. Trace pleural fluid. Carlos A Spicer MD Objective Remarks GENERAL: Alert, NAD. SKIN: Warm and dry. HEAD: Normocephalic. EYES: No scleral icterus. No injection or drainage. NECK: Supple, trachea midline. No JVD or lymphadenopathy. CARDIOVASCULAR: Regular rate and rhythm without murmurs, gallops, or rubs. RESPIRATORY: Breath sounds equal bilaterally. No accessory muscle use. GASTROINTESTINAL: Abdomen soft, non-tender, nondistended. MUSCULOSKELETAL: No cyanosis, or edema. BACK: Nontender without obvious deformity. No CVA tenderness. Procedures Vas-Cath, EGD, colonoscopy A/P Problem List: (1) Acute renal failure ICD Code: N17.9 Status: Acute (2) Hyperkalemia ICD Code: E87.5 Status: Resolved (3) Generalized weakness ICD Code: R53.1 Status: Acute (4) CAD (coronary artery disease) ICD Code: I25.10 Status: Chronic (5) HTN (hypertension) ICD Code: I10 Status: Chronic (6) DM2 (diabetes mellitus, type 2) ICD Code: E11.9 Status: Chronic (7) COPD (chronic obstructive pulmonary disease) ICD Code: J44.9 Status: Chronic Assessment and Plan 81-year-old male with: - GI bleed - no recurrence. Hgb improved after transfusion - Required multiple blood transfusions 5 packed RBCs so far. Patient underwent EGD with gastritis and Colonoscopy on 08/31/2016 with significant amount of blood in the colon. - GI suspects bleeding from diverticulosis. - Due to significant bleeding, Patient was transferred to ICU for closer observation. STAT bleeding scan did not identify any bleeding source. - Repeat bleeding scan was negative as well as small bowel follow through. Repeat colonoscopy showed no blood. - Will check H&H in the AM. - Continue PPI. - Acute renal failure with severe hyperkalemia: On presentation. Acute renal failure resolving. - Nephrology followed this patient closely. Creatinine 5.06 on admission to 1.40 on 09/01/2016. - Hyperkalemia: Resolved. K+ 3.5 on 09/01/2016. - COPD with chronic respiratory failure on home oxygen: Not in exacerbation. Patient is oxygen dependent. Continue breathing treatments as needed. Continue Symbicort. Supplemental oxygen as needed to keep O2 sat > 90%. Diabetes mellitus type 2: Hold glipizide and metformin. Sliding scale insulin with Accu-Cheks. Hypertension: Continue antihypertensives with hold parameters. Coronary artery disease/atrial fibrillation: Continue statin and Coreg. Patient has a pacemaker. No aspirin for now. Full code. SCDs. Problem Qualifiers (1) Acute renal failure: Qualified Code: N17.9 - Acute renal failure, unspecified acute renal failure type Carlos Fu DO Sep 05, 2016 6:48 pm
[2016-09-05] MEDS: PRAVASTATIN SOD 40 MG TAB PO SCH (20:56)
--- NOTE | 2016-09-05 22:06 | HHI.PR ---
Subjective Remarks C/R surg events reviewed No more BRB appetite good ?colon Objective - Vital Signs Date Time Temp Pulse Resp B/P Pulse Ox O2 Delivery O2 Flow Rate FiO2 09/05/16 16:02 96.9 60 18 150/66 95 09/05/16 14:14 21 09/04/16 19:07 Nasal Cannula 2.00 Result Diagram: 09/05/16 0644 09/05/16 0644 Objective Remarks PE alert Abd - soft, non-tender, no BRB, no N/V, no tympany A/P Assessment and Plan Imp: stable bleeding scan negative, CTA neg review colonoscopy José Miguel Domingo MD Sep 05, 2016 22:06
[2016-09-06] VITALS (8 sets, daily range): BP systolic 107–142; BP diastolic 53–59; PULSE 58–72; RESP 18–20; TEMP 96–97.2; O2SAT 89–98
[2016-09-06] MEDS: INSULIN ASPART SUPPLEMENTAL SCALE SQ SCH ×4 (05:50→21:00)
[2016-09-06] MEDS: CARVEDILOL 12.5 MG TAB PO SCH ×2 (08:31→21:25)
[2016-09-06] MEDS: TAMSULOSIN HCL 0.4 MG CAP PO SCH (08:31)
[2016-09-06] MEDS: guaiFENesin E.R. 600 MG TAB PO SCH ×2 (08:31→21:25)
[2016-09-06] MEDS: SERTRALINE HCL 100 MG TAB PO SCH (08:31)
[2016-09-06] MEDS: FERROUS SULFATE 325 MG (65 MG ELEMENTAL IRON) TAB PO SCH ×2 (08:31→21:25)
[2016-09-06] MEDS: PANTOPRAZOLE SOD 40 MG DELAYED RELEASE TAB PO SCH (08:32)
[2016-09-06] MEDS: SODIUM CHLORIDE 0.9% FLUSH 5 ML FLUSH FLUSH SCH ×2 (08:32→21:27)
[2016-09-06 11:47] LABS: HEMATOCRIT 26.5 % (39.0-51.0); REVIEW FLAG FINAL
--- NOTE | 2016-09-06 15:21 | HHI.GIFU ---
GI Follow-up Note Consult Follow-up Subjective: Patient laying in bed comfortably,no further bleeding.Weak, tolerating diet well.S/p colonoscopy yesterday-no active bleeding Objective: PHYSICAL EXAMINATION: Vitals signs stable No fever Vital Signs Date Time Temp Pulse Resp B/P Pulse Ox O2 Delivery O2 Flow Rate FiO2 09/06/16 11:06 94 Nasal Cannula 21 09/06/16 08:34 96.8 58 18 142/59 98 HEENT: Pupils round and reactive to light; normocephalic; atraumatic; no jaundice. Throat is clear. NECK: Neck is supple, no JVD, no lymphadenopathy. CHEST: Chest is clear to auscultation and percussion. CARDIAC: Regular rate and rhythm with no murmur gallop or rubs. ABDOMEN: Soft, nondistended, nontender; no hepatosplenomegaly; bowel sounds are present in all four quadrants. EXTREMITIES: No clubbing, cyanosis, or edema. SKIN: Normal; no rash; no jaundice, easy bruising HVAC INSTALLER: No focal deficits; alert and oriented times three. Available Data (labs, X- Rays, Procedues) : Laboratory Tests Test 09/05/16 09/06/16 06:44 11:00 White Blood Count 9.4 TH/MM3 Red Blood Count 2.98 MIL/MM3 Hemoglobin 8.7 GM/DL 9.0 GM/DL Hematocrit 25.8 % 26.5 % Mean Corpuscular Volume 86.4 FL Mean Corpuscular Hemoglobin 29.3 PG Mean Corpuscular Hemoglobin 33.9 % Concent Red Cell Distribution Width 16.6 % Platelet Count 184 TH/MM3 Mean Platelet Volume 7.1 FL Neutrophils (%) (Auto) 82.1 % Lymphocytes (%) (Auto) 9.0 % Monocytes (%) (Auto) 4.8 % Eosinophils (%) (Auto) 3.9 % Basophils (%) (Auto) 0.2 % Neutrophils # (Auto) 7.7 TH/MM3 Lymphocytes # (Auto) 0.8 TH/MM3 Monocytes # (Auto) 0.4 TH/MM3 Eosinophils # (Auto) 0.4 TH/MM3 Basophils # (Auto) 0.0 TH/MM3 CBC Comment DIFF FINAL Differential Comment Sodium Level 143 MEQ/L Potassium Level 3.3 MEQ/L Chloride Level 105 MEQ/L Carbon Dioxide Level 30.7 MEQ/L Anion Gap 7 MEQ/L Blood Urea Nitrogen 16 MG/DL Creatinine 0.91 MG/DL Estimat Glomerular Filtration 80 ML/MIN Rate Random Glucose 98 MG/DL Calcium Level 8.2 MG/DL Phosphorus Level 3.6 MG/DL Magnesium Level 2.6 MG/DL ASSESSMENT/PLAN: recurrent gi bleeding , extensive work-up negative, suspect possible diverticular bleeding pandiverticulosis -most likely cause of recurrent bleeding Recommendations supportive care transfuse prn capsule endoscopy op colorectal surgery on case if active bleeding-bleeding scan It was a pleasure seeing Stanford Priest. Thank you for this consult. Entered by: Aliza Trujillo MD Sep 06, 2016 15:21
--- NOTE | 2016-09-06 17:39 | HHI.PR ---
Subjective Remarks Follow-up for GI bleed. Patient is currently doing well. Denies any bloody stool. No shortness of breath, no fever or chills. Denies any chest pain. Objective Vitals Vital Signs Date Time Temp Pulse Resp B/P Pulse Ox O2 Delivery O2 Flow Rate FiO2 09/06/16 16:23 96.4 60 18 120/56 96 09/06/16 12:00 97.0 72 18 110/53 97 09/06/16 11:06 94 Nasal Cannula 21 09/06/16 08:34 96.8 58 18 142/59 98 09/06/16 04:30 96.0 59 19 114/58 98 09/06/16 01:58 89 09/06/16 00:38 97.2 60 20 107/53 92 09/05/16 21:03 69 09/05/16 21:00 68 09/05/16 20:36 97.8 59 19 129/54 98 I/O 09/05/16 09/05/16 09/05/16 09/06/16 09/06/16 09/06/16 07:00 15:00 23:00 07:00 15:00 23:00 Intake Total 0 ml 693 ml 240 ml Output Total 200 ml 200 ml Balance 0 ml 493 ml 40 ml Intake Oral 0 ml 368 ml 240 ml IV Total 325 ml Output Urine Total 200 ml 200 ml # Voids 0 4 1 # Bowel Movements 0 1 0 Result Diagram: 09/06/16 1100 09/05/16 0644 Objective Remarks GENERAL: Alert, NAD. SKIN: Warm and dry. HEAD: Normocephalic. EYES: No scleral icterus. No injection or drainage. NECK: Supple, trachea midline. No JVD or lymphadenopathy. CARDIOVASCULAR: Regular rate and rhythm without murmurs, gallops, or rubs. RESPIRATORY: Breath sounds equal bilaterally. No accessory muscle use. GASTROINTESTINAL: Abdomen soft, non-tender, nondistended. MUSCULOSKELETAL: No cyanosis, or edema. BACK: Nontender without obvious deformity. No CVA tenderness. Procedures Vas-Cath, EGD, colonoscopy A/P Problem List: (1) Acute renal failure ICD Code: N17.9 Status: Acute (2) Hyperkalemia ICD Code: E87.5 Status: Resolved (3) Generalized weakness ICD Code: R53.1 Status: Acute (4) CAD (coronary artery disease) ICD Code: I25.10 Status: Chronic (5) HTN (hypertension) ICD Code: I10 Status: Chronic (6) DM2 (diabetes mellitus, type 2) ICD Code: E11.9 Status: Chronic (7) COPD (chronic obstructive pulmonary disease) ICD Code: J44.9 Status: Chronic Assessment and Plan 81-year-old male with: - GI bleed - no recurrence. Hgb improved after transfusion - Required multiple blood transfusions 5 packed RBCs so far. Patient underwent EGD with gastritis and Colonoscopy on 08/31/2016 with significant amount of blood in the colon. - GI suspects bleeding from diverticulosis. - Due to significant bleeding, Patient was transferred to ICU for closer observation. STAT bleeding scan did not identify any bleeding source. - Repeat bleeding scan was negative as well as small bowel follow through. Repeat colonoscopy showed no blood. - H&H shows stable hemoglobin. 8.7 --> 9.0 - Continue PPI. - Acute renal failure with severe hyperkalemia: On presentation. Acute renal failure resolving. - Nephrology followed this patient closely. Creatinine 5.06 on admission to 1.40 on 09/01/2016. - Hyperkalemia: Resolved. K+ 3.5 on 09/01/2016. - COPD with chronic respiratory failure on home oxygen: Not in exacerbation. Patient is oxygen dependent. Continue breathing treatments as needed. Continue Symbicort. Supplemental oxygen as needed to keep O2 sat > 90%. Diabetes mellitus type 2: Hold glipizide and metformin. Sliding scale insulin with Accu-Cheks. Hypertension: Continue antihypertensives with hold parameters. Coronary artery disease/atrial fibrillation: Continue statin and Coreg. Patient has a pacemaker. No aspirin for now. Full code. SCDs. Discharge patient today. However due to transportation issues patient will be transported to SNF tomorrow 09/07/2016. Problem Qualifiers (1) Acute renal failure: Qualified Code: N17.9 - Acute renal failure, unspecified acute renal failure type Carlos Fu DO Sep 06, 2016 5:39 pm
--- NOTE | 2016-09-06 21:10 | HHI.PR ---
Subjective Remarks C/R surg events reviewed No more BRB appetite good Objective - Vital Signs Date Time Temp Pulse Resp B/P Pulse Ox O2 Delivery O2 Flow Rate FiO2 09/06/16 19:03 96.7 60 19 124/58 97 09/06/16 11:06 Nasal Cannula 21 09/04/16 19:07 2.00 Result Diagram: 09/06/16 1100 09/05/16 0644 Objective Remarks PE alert Abd - soft, non-tender, no BRB, no N/V A/P Assessment and Plan Imp: stable No bleeding plan DC to rehab José Miguel Domingo MD Sep 06, 2016 21:10
[2016-09-06] MEDS: PRAVASTATIN SOD 40 MG TAB PO SCH (21:25)
[2016-09-07 00:19] VITALS: BP 112/62; PULSE 59; RESP 19; TEMP 96.7; O2SAT 96
[2016-09-07 04:23] VITALS: BP 123/63; PULSE 59; RESP 20; TEMP 96.6; O2SAT 94
[2016-09-07] MEDS: INSULIN ASPART SUPPLEMENTAL SCALE SQ SCH ×2 (06:52→12:15)
[2016-09-07 07:49] VITALS: BP 147/61; PULSE 54; RESP 18; TEMP 96.5; O2SAT 99
[2016-09-07] MEDS: CARVEDILOL 12.5 MG TAB PO SCH (08:00)
[2016-09-07] MEDS: PANTOPRAZOLE SOD 40 MG DELAYED RELEASE TAB PO SCH (08:00)
[2016-09-07] MEDS: SODIUM CHLORIDE 0.9% FLUSH 5 ML FLUSH FLUSH SCH (08:00)
[2016-09-07] MEDS: guaiFENesin E.R. 600 MG TAB PO SCH (08:00)
[2016-09-07] MEDS: TAMSULOSIN HCL 0.4 MG CAP PO SCH (08:00)
[2016-09-07] MEDS: SERTRALINE HCL 100 MG TAB PO SCH (08:00)
[2016-09-07] MEDS: FERROUS SULFATE 325 MG (65 MG ELEMENTAL IRON) TAB PO SCH (08:00)
--- NOTE | 2016-09-07 10:33 | HHI.GIFU ---
Subjective Remarks Resting in bed. No further active bleeding. No n/v/pain. Objective Vitals I&O Vital Signs Date Time Temp Pulse Resp B/P Pulse Ox O2 Delivery O2 Flow Rate FiO2 09/07/16 07:49 96.5 54 18 147/61 99 09/07/16 04:23 96.6 59 20 123/63 94 09/07/16 00:19 96.7 59 19 112/62 96 09/06/16 19:03 96.7 60 19 124/58 97 09/06/16 16:23 96.4 60 18 120/56 96 09/06/16 12:00 97.0 72 18 110/53 97 09/06/16 11:06 94 Nasal Cannula 21 I/O 09/06/16 09/06/16 09/06/16 09/07/16 09/07/16 09/07/16 07:00 15:00 23:00 07:00 15:00 23:00 Intake Total 240 ml 480 ml 240 ml 240 ml Output Total 200 ml 600 ml 300 ml 600 ml Balance 40 ml -120 ml -60 ml -360 ml Intake Oral 240 ml 480 ml 240 ml 240 ml Output Urine Total 200 ml 600 ml 300 ml 600 ml # Voids 1 1 1 # Bowel Movements 0 2 1 0 Laboratory Laboratory Tests Test 09/06/16 11:00 Hemoglobin 9.0 Hematocrit 26.5 Imaging Last Impressions GI Bleed Scan Nuclear Medicine 09/03/16 0000 Signed Impressions: Service Date/Time: Saturday, September 03, 2016 13:20 - CONCLUSION: Normal examination. Carlos A Spicer MD Small Bowel X-Ray 09/02/16 0000 Signed Impressions: Service Date/Time: Saturday, September 03, 2016 09:24 - CONCLUSION: Unremarkable small bowel examination. Carlos A Spicer MD Abdomen/Pelvis CT 09/02/16 0000 Signed Impressions: Service Date/Time: Friday, September 02, 2016 19:31 - CONCLUSION: 1. Small bilateral effusions with basilar atelectasis. 2. Patent mesenteric vessels. Atherosclerotic aorta and branches without aneurysm. No bowel obstruction. No free fluid or free air. Mild ileus. Carlos A Spicer MD Renal Ultrasound 08/23/16 0000 Signed Impressions: Service Date/Time: Tuesday, August 23, 2016 08:05 - CONCLUSION: I suspect there are two small cortical calcification within the right kidney. No evidence of hydronephrosis or obstruction. Aries Castro MD Catheter Placement X-Ray 08/23/16 0000 Signed Impressions: Service Date/Time: Tuesday, August 23, 2016 09:59 - CONCLUSION: Uncomplicated line placement as above. Nick Perez MD Chest X-Ray 08/22/16 2019 Signed Impressions: Service Date/Time: Monday, August 22, 2016 20:31 - CONCLUSION: 1. Global cardiomegaly with probable early edematous changes with vascular indistinctness. Trace pleural fluid. Carlos A Spicer MD Physical Exam HEENT: Normocephalic; atraumatic; no jaundice. CHEST: CTA CARDIAC: RRR ABDOMEN: Soft, nondistended, nontender; no hepatosplenomegaly; bowel sounds are present in all four quadrants. EXTREMITIES: No clubbing, cyanosis, or edema. SKIN: Generalized pallor GUN STOCK MAKER: Lethargic, oriented to self and place Assessment and Plan Plan ASSESSMENT: - Recurrent GI bleeding with melena/maroon bloody stools. Pt has hx of recurrent GI bleeding and underwent egd/colonoscopy, capsule endoscopy in [place] with no source of bleeding. S/P EGD on (----> Erythematous gastritis, bx showed chronic gastritis. S/P Flex/sig ( 08/31/16)----> diverticulosis, fresh blood in colon. SBFT (09/02)----> Unremarkable small bowel examination. GI Bleed Scan Nuclear Medicine (09/03/16)----> Normal examination. S/P Rpt. Colonoscopy ()---> pandiverticulosis. Most likely this is the cause of his recurrent bleeding. No active bleeding at this time. CRS following. HH 9.0/26.5. - Anemia. S/P 7 units of PRBC. HH 9.0/26.5. - ARF, Resolved. - PMH of A-fib, CABG, pace maker per attending Plan: - SUSAN - PPI - Monitor HH - Transfuse as needed - Supportive care - Capsule endoscopy as outpatient - CRS following - If active bleeding, stat bleeding scan - Patient seen and examined by Dr. valverde and myself and this note is written on his behalf. Inessa Grijalva Sep 07, 2016 10:32
--- NOTE | 2016-09-07 13:24 | HHI.DS ---
Discharge Summary Admission Date Aug 22, 2016 at 10:37 pm Discharge Date: Sep 07, 2016 Admitting Diagnosis Renal failure, hyperkalemia, generalized weakness (1) Acute renal failure ICD Code: N17.9 Diagnosis: Principal (2) Hyperkalemia ICD Code: E87.5 Diagnosis: Principal (3) Generalized weakness ICD Code: R53.1 Diagnosis: Principal (4) CAD (coronary artery disease) ICD Code: I25.10 Diagnosis: Secondary (5) HTN (hypertension) ICD Code: I10 Diagnosis: Secondary (6) DM2 (diabetes mellitus, type 2) ICD Code: E11.9 Diagnosis: Secondary (7) COPD (chronic obstructive pulmonary disease) ICD Code: J44.9 Diagnosis: Secondary Procedures Vas-Cath, EGD, colonoscopy Brief History - From Admission History and patient, ER physician to medication, and review of medical records. Patient reported that today as he was walking at home, he suddenly fell backwards. He stated he was with his family members who is supporting him and therefore he did not hit his head. Denies loss of consciousness. He did however report that he was very dizzy prior to his fall. Reports that he has been having nausea and vomiting all day long and vomited whatever he ate. Denies any black color stools or red-colored stools. Denies any blood in his vomitus. Denies fever. Reports of some abdominal pain associated with this vomiting episodes. No sick contacts. Patient denies any prior history of kidney disease. In the emergency room, patient was found to have acute renal failure with life- threatening hyperkalemia. He was treated with cocktail regimen of insulin/dextrose/Kayexalate/calcium gluconate for his hyperkalemia. There are no noted cardiac arrhythmia on telemetry monitoring or on EKGs. CBC/BMP: 09/06/16 1100 09/05/16 0644 Significant Findings Laboratory Tests Test 09/05/16 09/06/16 06:44 11:00 Red Blood Count 2.98 MIL/MM3 (4.50-5.90) Hemoglobin 8.7 GM/DL 9.0 GM/DL (13.0-17.0) (13.0-17.0) Hematocrit 25.8 % 26.5 % (39.0-51.0) (39.0-51.0) Neutrophils (%) (Auto) 82.1 % (16.0-70.0) Lymphocytes # (Auto) 0.8 TH/MM3 (1.0-4.8) Potassium Level 3.3 MEQ/L (3.5-5.1) Estimat Glomerular Filtration 80 ML/MIN (>89) Rate Calcium Level 8.2 MG/DL (8.5-10.1) Magnesium Level 2.6 MG/DL (1.5-2.5) Imaging Last Impressions GI Bleed Scan Nuclear Medicine 09/03/16 Signed Impressions: Service Date/Time: Saturday, September 03, 2016 13:20 - CONCLUSION: Normal examination. Carlos A Spicer MD Small Bowel X-Ray 09/02/16 Signed Impressions: Service Date/Time: Saturday, September 03, 2016 09:24 - CONCLUSION: Unremarkable small bowel examination. Carlos A Spicer MD Abdomen/Pelvis CT 09/02/16 Signed Impressions: Service Date/Time: Friday, September 02, 2016 19:31 - CONCLUSION: 1. Small bilateral effusions with basilar atelectasis. 2. Patent mesenteric vessels. Atherosclerotic aorta and branches without aneurysm. No bowel obstruction. No free fluid or free air. Mild ileus. Carlos A Spicer MD Renal Ultrasound 08/23/16 Signed Impressions: Service Date/Time: Tuesday, August 23, 2016 08:05 - CONCLUSION: I suspect there are two small cortical calcification within the right kidney. No evidence of hydronephrosis or obstruction. Aries Castro MD Catheter Placement X-Ray 08/23/16 Signed Impressions: Service Date/Time: Tuesday, August 23, 2016 09:59 - CONCLUSION: Uncomplicated line placement as above. Nick Perez MD Chest X-Ray 08/22/162018 Signed Impressions: Service Date/Time: Monday, August 22, 2016 20:31 - CONCLUSION: 1. Global cardiomegaly with probable early edematous changes with vascular indistinctness. Trace pleural fluid. Carlos A Spicer MD PE at Discharge GENERAL: Alert, NAD. SKIN: Warm and dry. HEAD: Normocephalic. EYES: No scleral icterus. No injection or drainage. NECK: Supple, trachea midline. No JVD or lymphadenopathy. CARDIOVASCULAR: Regular rate and rhythm without murmurs, gallops, or rubs. RESPIRATORY: Breath sounds equal bilaterally. No accessory muscle use. GASTROINTESTINAL: Abdomen soft, non-tender, nondistended. MUSCULOSKELETAL: No cyanosis, or edema. BACK: Nontender without obvious deformity. No CVA tenderness. Pt update on day of discharge Mr. Priest is doing well. No acute concerns. He is tolerating diet well. Denies any further bleeding episodes. Hospital Course 81-year-old male with: - GI bleed - no recurrence. Hgb improved after transfusion - Required multiple blood transfusions 5 packed RBCs so far. Patient underwent EGD with gastritis and Colonoscopy on 08/31/2016 with significant amount of blood in the colon. - GI suspects bleeding from diverticulosis. - Due to significant bleeding, Patient was transferred to ICU for closer observation. STAT bleeding scan did not identify any bleeding source. - Repeat bleeding scan was negative as well as small bowel follow through. Repeat colonoscopy showed no blood. - H&H shows stable hemoglobin. 8.7 --> 9.0 - Continue PPI. - Acute renal failure with severe hyperkalemia: On presentation. Acute renal failure resolving. - Nephrology followed this patient closely. Creatinine 5.06 on admission to 1.40 on 09/01/2016. - Hyperkalemia: Resolved. K+ 3.5 on 09/01/2016. - COPD with chronic respiratory failure on home oxygen: Not in exacerbation. Patient is oxygen dependent. Continue breathing treatments as needed. Continue Symbicort. Supplemental oxygen as needed to keep O2 sat > 90%. Diabetes mellitus type 2: Hold glipizide and metformin. Sliding scale insulin with Accu-Cheks. Hypertension: Continue antihypertensives with hold parameters. Coronary artery disease/atrial fibrillation: Continue statin and Coreg. Patient has a pacemaker. No aspirin for now. Pt Condition on Discharge: Stable Discharge Disposition: Discharge to SNF Discharge Time: > 30 minutes Discharge Instructions DIET: Follow Instructions for: Heart Healthy Diet, Diabetic Diet Activities you can perform: Regular-No Restrictions Activities to Avoid: Driving Follow up Referrals: Gastroenterology - 1 Week with Carlos Alexis MD Nephrology - 1 Week PCP Follow-up - 2-3 Days New Medications: Albuterol Neb (Albuterol Neb) 2.5 Mg/3 Ml Neb 2.5 MG NEB Q4HR NEB PRN SHORTNESS OF BREATH #60 Ref 0 NEBULE Ipratropium-Albuterol Neb (Duoneb) 0.5-2.5 Mg/3 Ml Neb 1 NEBULE INH QID NEB Breathing Treatment #180 Ref 0 NEBULE Continued Medications: Allopurinol (Allopurinol) 100 Mg Tab 200 MG PO DAILY Gout #30 Ref 0 TAB Ascorbic Acid (Ievq-[id number]-7506) 1,000 Mg Tab 1000 MG PO DAILY Nutritional Supplement #30 Ref 0 TAB Carvedilol (Carvedilol) 12.5 Mg Tab 12.5 MG PO BID #60 Ref 0 TAB Cholecalciferol (D3 Ultra Strength) 5,000 Unit Cap 5000 UNITS PO DAILY Nutritional Supplement #30 Ref 0 CAP Cyanocobalamin (B-12) 2,500 Mcg Subl 2500 MCG PO EVERY OTHER DAY Nutritional Supplement Ref 0 TAB.SL Ferrous Sulfate (Ferrous Sulfate) 325 Mg Tab 325 MG PO BID Nutritional Supplement #30 Ref 0 TAB Folic Acid (Folate) 1 Mg Tab 1 MG PO DAILY Nutritional Supplement Ref 0 TAB Metformin (Metformin) 1,000 Mg Tab 1000 MG PO BID With meals Blood Sugar Management #60 Ref 0 TAB Multiple Vitamins W/ Minerals (Centrum) 1 Tab 1 TAB PO DAILY Nutritional Supplement Ref 0 TAB Pantoprazole (Pantoprazole) 40 Mg Tab 40 MG PO DAILY Reflux #30 Ref 0 TAB Polyethylene Glycol 3350 Powder (Miralax Powder) 17 Gm Powd 17 GM PO DAILY Mix and dissolve one measuring cap-ful (17 grams) in water or juice. PRN CONSTIPATION #1 Ref 0 BOTTLE Pravastatin (Pravastatin) 40 Mg Tab 40 MG PO HS Cholesterol Management #30 Ref 0 TAB Sertraline (Sertraline) 100 Mg Tab 100 MG PO DAILY #30 Ref 0 TAB Tamsulosin (Tamsulosin) 0.4 Mg Cap 0.4 MG PO DAILY Manage Prostate Problems #30 Ref 0 CAP Discontinued Medications: Aspirin (Aspirin) 81 Mg Tabdr 81 MG PO DAILY TAB Bumetanide (Bumex) 2 Mg Tab 2 MG PO BID Ref 0 TAB Diltiazem ER 24 HR (Cartia Xt) 120 Mg Caper 120 MG PO DAILY #30 Ref 0 CAP Glipizide (Glipizide) 5 Mg Tab 5 MG PO DAILY Take 30 minutes before a meal Blood Sugar Management #30 Ref 0 TAB Hydrocodone-Acetaminophen (Lortab) 5-325 Mg Tab 1 TAB PO Q4H PRN PAIN Ref 0 TAB Magnesium Oxide (Magnesium Oxide) 400 Mg Tab 400 MG PO DAILY Nutritional Supplement Ref 0 TAB Carlos Fu DO Sep 07, 2016 13:24
[2016-09-07 14:29] VITALS: O2SAT 94
== END 2016-09-07 14:58 | DRG 682 ==
LOC: NEPE 19:47 → NEDA 22:37 → NEDH 08-23 03:19 → HIMW 08-23 18:25 → HOCB 08-25 09:59 → HIME 08-31 14:55 → N06A 09-05 02:15
PROVIDERS: ADMIT Hospitalist; ATTEND Hospitalist
PROC: 05HM33Z Insertion of Infusion Device into Right Internal Jugular Vein, Percutaneous Approach (ICD-10-PCS; principal; 2016-08-23)
PROC: 5A1D00Z (ICD-10-PCS; 2016-08-23)
PROC: 0DB68ZX Excision of Stomach, Via Natural or Artificial Opening Endoscopic, Diagnostic (ICD-10-PCS; 2016-08-30)
PROC: 30233N1 Transfusion of Nonautologous Red Blood Cells into Peripheral Vein, Percutaneous Approach (ICD-10-PCS; 2016-08-30)
PROC: 0DJD8ZZ Inspection of Lower Intestinal Tract, Via Natural or Artificial Opening Endoscopic (ICD-10-PCS; 2016-08-31)
PROC: 0DJD8ZZ Inspection of Lower Intestinal Tract, Via Natural or Artificial Opening Endoscopic (ICD-10-PCS; 2016-09-04)
DX: N17.9 Acute kidney failure, unspecified (principal); K57.31 Diverticulosis of large intestine without perforation or abscess with bleeding; J96.10 Chronic respiratory failure, unspecified whether with hypoxia or hypercapnia; E11.649 Type 2 diabetes mellitus with hypoglycemia without coma; E86.0 Dehydration; I48.91 Unspecified atrial fibrillation; E11.65 Type 2 diabetes mellitus with hyperglycemia; E11.51 Type 2 diabetes mellitus with diabetic peripheral angiopathy without gangrene; D50.9 Iron deficiency anemia, unspecified; I10 Essential (primary) hypertension; I50.9 Heart failure, unspecified; Z99.81 Dependence on supplemental oxygen; E87.5 Hyperkalemia; J44.9 Chronic obstructive pulmonary disease, unspecified; I25.10 Atherosclerotic heart disease of native coronary artery without angina pectoris; R53.1 Weakness; K29.50 Unspecified chronic gastritis without bleeding; E78.5 Hyperlipidemia, unspecified; K64.4 Residual hemorrhoidal skin tags; Z95.0 Presence of cardiac pacemaker; Z95.5 Presence of coronary angioplasty implant and graft; Z95.1 Presence of aortocoronary bypass graft; Z95.2 Presence of prosthetic heart valve; Z88.8 Allergy status to other drugs, medicaments and biological substances; Z87.891 Personal history of nicotine dependence; Z86.73 Personal history of transient ischemic attack (TIA), and cerebral infarction without residual deficits; Z86.718 Personal history of other venous thrombosis and embolism; Z79.84 Long term (current) use of oral hypoglycemic drugs
CPT/HCPCS: 36430; 36556; 71010; 74174; 74250; 76775; 76937; 77001; 78278; 80048; 80053; 80074; 81001; 82272; 82550; 82948; 83690; 83735; 83880; 84100; 84165; 84443; 84484; 85014; 85018; 85025; 85027; 85610; 85730; 86021; 86160; 86850; 86900; 86901; 86920; 87641; 88305; 88312; 90935; 93005; 94640; 94664; 96374; 96375; 96376; A9560; C1752; J0610; J1580; J1815; J1940; J2405; J7030; J7040; J7050; J7611; J7613; P9016; Q4081; Q9967